=== PATIENT | female | born 1955 | race African-American/Black ===

== ENCOUNTER 2017-04-23 22:21 | Emergency (ER) | payer SELFPAY ==
--- NOTE | 2017-04-23 22:41 | EKG REPORT ---
SEVERITY:- OTHERWISE NORMAL ECG - SINUS RHYTHM BORDERLINE LEFT AXIS DEVIATION : Confirmed by: Junior Garibay 23-Apr-2017 22:40:53
[2017-04-24 00:10] LABS: ABSOLUTE EOSINOPHILS # (AUTO) 0.1 10^3/uL (0.0-0.6); ABSOLUTE LYMPHOCYTES (AUTO) 1.5 10^3/uL (0.5-4.7); ABSOLUTE MONOCYTES (AUTO) 1.1 10^3/uL (0.1-1.4); ABSOLUTE NEUT (AUTO) 3.1 10^3/uL (1.7-8.2); BASOPHILS % (AUTO) 0.5 % (0-2); EOSINOPHILS % (AUTO) 1.9 % (0-6); HEMATOCRIT 32.1 % (36.0-47.0); HEMOGLOBIN 10.4 g/dL (12.0-15.5); HGB HCT DIFFERENCE -0.9; LYMPHOCYTES % (AUTO) 25.8 % (13-45); MEAN CORPUSCULAR HEMOGLOBIN 29.3 pg (27.0-33.4); MEAN CORPUSCULAR HGB CONC 32.5 g/dL (32.0-36.0); MEAN CORPUSCULAR VOLUME 90 fl (80-97); MONOCYTES % (AUTO) 18.6 % (3-13); RED BLOOD COUNT 3.56 10^6/uL (3.72-5.28); RED CELL DISTRIBUTION WIDTH 13.4 % (11.5-14.0); SEGMENTED NEUTROPHILS % (AUTO) 53.2 % (42-78); WHITE BLOOD COUNT 5.8 10^3/uL (4.0-10.5)
[2017-04-24 00:19] LABS: ALANINE AMINOTRANSFERASE 29 U/L (9-52); ALBUMIN 4.4 g/dL (3.5-5.0); ALKALINE PHOSPHATASE 75 U/L (38-126); ANION GAP 12 (5-19); ASPARTATE AMINO TRANSFERASE 25 U/L (14-36); BILIRUBIN,DIRECT 0.5 mg/dL (0.0-0.4); BILIRUBIN,TOTAL 0.8 mg/dL (0.2-1.3); BLOOD UREA NITROGEN 19 mg/dL (7-20); CALCIUM 9.7 mg/dL (8.4-10.2); CARBON DIOXIDE 31 mmol/L (22-30); CHLORIDE 99 mmol/L (98-107); CREATINE KINASE 142 U/L (30-135); CREATININE RESULT 0.79 mg/dL (0.52-1.25); GLUCOSE 131 mg/dL (75-110); LIPASE 45.7 U/L (23-300); POTASSIUM 4.2 mmol/L (3.6-5.0); SODIUM 141.5 mmol/L (137-145); TOTAL PROTEIN 8.2 g/dL (6.3-8.2)
[2017-04-24 00:26] LABS: APPEARANCE,URINE CLEAR; BILIRUBIN,URINE NEGATIVE (NEGATIVE); GLUCOSE, URINE NEGATIVE (NEGATIVE); KETONES,URINE NEGATIVE (NEGATIVE); LEUKOCYTE ESTERASE,URINE TRACE (NEGATIVE); NITRITE,URINE NEGATIVE (NEGATIVE); PROTEIN,URINE NEGATIVE (NEGATIVE); URINE SPECIFIC GRAVITY 1.021; UROBILINOGEN,URINE NEGATIVE mg/dL (<2.0)
[2017-04-24 00:30] LABS: CREATINE KINASE MB 0.87 ng/mL (<4.55); TROPONIN I < 0.012 ng/mL
--- NOTE | 2017-04-24 00:51 | RADIOLOGY REPORT (SQ) ---
EXAM DESCRIPTION: CHEST SINGLE VIEW COMPLETED DATE/TIME: 04/24/2017 12:30 am REASON FOR STUDY: chest pain COMPARISON: 09/28/2013. EXAM PARAMETERS: NUMBER OF VIEWS: One view. TECHNIQUE: Single frontal radiographic view of the chest acquired. RADIATION DOSE: NA LIMITATIONS: None. FINDINGS: LUNGS AND PLEURA: No opacities, masses or pneumothorax. No pleural effusion. MEDIASTINUM AND HILAR STRUCTURES: No masses. Contour normal. HEART AND VASCULAR STRUCTURES: Heart normal in size. Normal vasculature. BONES: Mild disc desiccation. HARDWARE: None in the chest. OTHER: No other significant finding. IMPRESSION: NO ACUTE RADIOGRAPHIC FINDING IN THE CHEST. TECHNICAL DOCUMENTATION: JOB ID: [id number]
--- NOTE | 2017-04-24 01:03 | ER Document Report ---
HPI - HPI Pain Level: 5 Notes: Patient is a 61-year-old female with a history of hypertension who presents the ED complaining of left flank pain that radiates into her groin 4 days. Patient states that the pain has been intermittent and is described as sharp. Patient states that she did have a pain like this last year, but never found out what was or what caused it. Patient states that she is still eating and drinking without any difficulties or changes in her symptoms. She still urinating normally without any burning, urgency, frequency, hematuria. Patient reports normal bowel movements as well without any melena or hematochezia. She denies any numbness/tingling, saddle anesthesia, urinary retention, muscle paralysis/weakness of her lower extremities. She has not had any over-the- counter meds for her symptoms. Her PCM is Dr. Hirsch. She denies any smoking or illicit drug use. Denies any surgeries to her abdomen/pelvis. Denies any headache, fever, neck pain/stiffness, URI, sore throat, chest pain, palpitations , syncope, cough, shortness of breath, wheeze, dyspnea, nausea/vomiting/diarrhea , dysuria, loss of control of bowel or bladder, or rash. - ROS Notes: REVIEW OF SYSTEMS: CONSTITUTIONAL : Denies fever, chills, or sweats. Denies recent illness. EENT: Denies eye, ear, throat, or mouth pain or symptoms. Denies nasal or sinus congestion or discharge. Denies throat, tongue, or mouth swelling or difficulty swallowing. CARDIOVASCULAR: Denies chest pain. Denies palpitations or racing or irregular heart beat. Denies ankle edema. RESPIRATORY: Denies cough, cold, or chest congestion. Denies shortness of breath, difficulty breathing, or wheezing. GASTROINTESTINAL: see hpi GENITOURINARY: Denies difficulty urinating, painful urination, burning, frequency, blood in urine, or discharge. FEMALE GENITOURINARY: Denies vaginal bleeding, heavy or abnormal periods, irregular periods. Denies vaginal discharge or odor. MUSCULOSKELETAL: see hpi SKIN: Denies rash, lesions or sores. NEUROLOGICAL: Denies confusion or altered mental status. Denies passing out or loss of consciousness. Denies dizziness or lightheadedness. Denies headache. Denies weakness or paralysis or loss of use of either side. Denies problems with gait or speech. Denies sensory loss, numbness, or tingling. ALL OTHER SYSTEMS REVIEWED AND NEGATIVE. Dictation was performed using 24h00 voice recognition software - REPRODUCTIVE LMP: na - DERM Skin Color: Normal Past Medical History - Social History Smoking Status: Never Smoker Frequency of alcohol use: None Family History: None, Reviewed & Not Pertinent Patient has suicidal ideation: No Patient has homicidal ideation: No - Past Medical History Cardiac Medical History: Reports: Hx Heart Attack, Hx Hypertension Pulmonary Medical History: Reports: Hx Pneumonia Renal/ Medical History: Denies: Hx Kidney Stones, Hx Peritoneal Dialysis Surgical Hx: Negative - Immunizations Hx Diphtheria, Pertussis, Tetanus Vaccination: Yes Hx Pneumococcal Vaccination: 09/28/13 Vertical Provider Document - CONSTITUTIONAL Agree With Documented VS: Yes Notes: PHYSICAL EXAMINATION: GENERAL: Well-appearing, well-nourished and in no acute distress. HEAD: Atraumatic, normocephalic. EYES: Pupils equal round and reactive to light, extraocular movements intact, sclera anicteric, conjunctiva are normal. ENT: EAC clear b/l. TM's intact b/l without erythema, fluid, or perforation. Nares patent and without discharge. oropharynx clear without exudates. No tonsilar hypertrophy or erythema. Moist mucous membranes. No sinus tenderness. NECK: Normal range of motion, supple without lymphadenopathy. No rigidity. LUNGS: Breath sounds clear to auscultation bilaterally and equal. No wheezes rales or rhonchi. HEART: Regular rate and rhythm without murmurs, rubs, gallops. ABDOMEN: Soft, nondistended abdomen. No guarding, no rebound. No masses appreciated. Normal bowel sounds present. + left CVA tenderness. + mild tenderness to the left flank only in the abd/pelvis. No inguinal adenopathy or obvious hernias noted. Musculoskeletal: LE's b/l: FROM to passive/active. Strength 5+/5. No focal deficits. Extremities: No cyanosis, clubbing, or edema b/l. Peripheral pulses 2+. Capillary refill less than 3 seconds. Sylvia neg b/l. SLR neg b/l. NEUROLOGICAL: Normal speech, normal gait. Normal sensory, motor exams PSYCH: Normal mood, normal affect. SKIN: Warm, Dry, normal turgor, no rashes or lesions noted. - INFECTION CONTROL TRAVEL OUTSIDE OF THE [place] IN LAST 30 DAYS: No - RESPIRATORY O2 Sat by Pulse Oximetry: 99 Course - Re-evaluation Re-evalutation: 04/24/17 03:45 Patient is an afebrile, well-hydrated, 61-year-old female who presents the ED with left flank pain not otherwise specified, but may have a correlation to the inferior left pulmonary nodule was found on CT and confirmed with chest CT. Vitals are otherwise stable. CBC, CMP, urine, lipase, abdominal CT, EKG, and cardiac enzymes were unremarkable at this time. Patient has a heart score of 2. Patient is able to tolerate p.o. intake without any difficulties. Low suspicion for any acute appendicitis, bowel obstruction, acute cholecystitis, perforated diverticulitis, incarcerated hernia, pancreatitis, perforated ulcer, tubo-ovarian abscess, peritonitis, sepsis at this time. Patient is aware that condition can change from initial presentation and she needs to monitor symptoms closely and seek medical attention if any acute changes. Toradol 15mg given IM today. Recommend conservative measures otherwise for symptoms at this time. Recheck with your PCM for further evaluation of the lung nodule and symptoms. Consider consult with a manager lab/oncologist. Return to the ED with any worsening/concerning symptoms otherwise as reviewed discharge. Patient is in agreement. - Vital Signs Vital signs: Temp Pulse Resp BP Pulse Ox 98.4 F 77 24 H 143/78 H 99 04/23/17 22:26 04/23/17 22:26 04/24/17 00:00 04/23/17 23:05 04/24/17 00:00 - Laboratory Result Diagrams: 04/23/17 23:23 04/23/17 23:23 Laboratory results interpreted by me: 04/23/17 04/23/17 04/24/17 23:23 23:23 00:10 RBC 3.56 L Hgb 10.4 L Hct 32.1 L Monocytes % 18.6 H Carbon Dioxide 31 H Glucose 131 H Direct Bilirubin 0.5 H Creatine Kinase 142 H Ur Leukocyte Esterase TRACE H Discharge - Discharge Clinical Impression: Left flank pain, Pulmonary nodule Condition: Stable Disposition: HOME, SELF-CARE Instructions: Abdominal Pain ([facility]), Toradol Injection ([facility]) Additional Instructions: Maintain adequate fluid and food intake Tylenol/ibuprofen as needed Warm/cool compresses may help Right stretches and exercises as able Monitor symptoms closely Recheck with your PCM in 2-3 days Consider consult with the manager lab/oncologist Return to the ED with any worsening symptoms and/or development of fever, headache, chest pain, palpitations, syncope, shortness of breath, trouble breathing, abdominal pain, n/v/d, blood in stool/urine, loss of control of bowel /bladder, urinary retention, muscle weakness/paralysis, saddle anesthesia, numbness/tingling, or other worsening symptoms that are concerning to you. Forms: Elevated Blood Pressure Referrals: DAVID HIRSCH MD [Primary Care Provider] - Follow up in 3-5 days PULMONOLOGY [Provider Group] - Follow up as needed
--- NOTE | 2017-04-24 01:38 | RADIOLOGY REPORT (SQ) ---
EXAM DESCRIPTION: CT LTD RENAL STONE PROTOCOL ON COMPLETED DATE/TIME: 04/24/2017 1:01 am REASON FOR STUDY: left flank pain COMPARISON: 06/14/2015. TECHNIQUE: CT scan of the abdomen and pelvis performed without intravenous or oral contrast. Images reviewed with lung, soft tissue, and bone windows. Reconstructed coronal and sagittal MPR images revi ewed. All images stored on PACS. All CT scanners at this facility use dose modulation, iterative reconstruction, and/or weight based d osing when appropriate to reduce radiation dose to as low as reasonably achievable (ALARA). [facility]: Dose Right [facility]: CareDose [facility]: Dose Right [facility]: Teradose 4D [facility]: [employer] RADIATION DOSE: Up-to-date CT equipment and radiation dose reduction techniques were employed. CTDIv ol: 15.6 mGy. DLP: 779 mGy-cm.mGy. LIMITATIONS: None. FINDINGS: LOWER CHEST: Minimal atelectasis or scar of the lingula. 1.1 x 0.6 cm pleural-based nodul e of the left lower lobe posteriorly. NON-CONTRASTED LIVER, SPLEEN, ADRENALS: Evaluation limited by lack of IV contrast. No identified sign ificant masses. PANCREAS: No masses. No peripancreatic inflammatory changes. GALLBLADDER: No identified stones by CT criteria. No inflammatory changes to suggest cholecystitis. RIGHT KIDNEY AND URETER: No suspicious masses. Assessment limited by lack of IV contrast. No signif icant calcifications. No hydronephrosis or hydroureter. LEFT KIDNEY AND URETER: No suspicious masses. Assessment limited by lack of IV contrast. No signifi cant calcifications. No hydronephrosis or hydroureter. AORTA AND RETROPERITONEUM: No aneurysm. No retroperitoneal masses or adenopathy. BOWEL AND PERITONEAL CAVITY: No obvious masses or inflammatory changes. No free fluid. APPENDIX: Normal. PELVIS, BLADDER, AND ABDOMINAL WALL:No abnormal masses. No free fluid. Bladder normal. BONES: 0.3 cm grade 1 degenerative anterolisthesis at the L5 level with mild lumbosacral spondylosis. Mild lower thoracic disc desiccation. Moderate bony demineralization. 0.6 cm ossicular fragment a nterior to the left hip joint. Mild bilateral femoroacetabular osteoarthritis. OTHER: No other significant finding. IMPRESSION: 1. No acute findings. 2. New 1.1 cm left lower lobar pulmonary nodule; correlation wit h routine contrast CT of the enitire chest recommended. TECHNICAL DOCUMENTATION: JOB ID: [id number] Quality ID # [id number]: Final reports with documentation of one or more dose reduction techniques (e.g., Au tomated exposure control, adjustment of the mA and/or kV according to patient size, use of iterative reconstruction technique) 2010 [employer]- All Rights Reserved
--- NOTE | 2017-04-24 03:35 | RADIOLOGY REPORT (SQ) ---
EXAM DESCRIPTION: CT CHEST WITH COMPLETED DATE/TIME: 04/24/2017 2:42 am REASON FOR STUDY: Pulmonary nodule on CT abd COMPARISON: None. TECHNIQUE: CT scan of the chest performed using helical scanning technique with dynamic intravenous contrast injection. Images reviewed with lung, soft tissue and bone windows. Reconstructed coronal and sagittal MPR images reviewed. All images stored on PACS. All CT scanners at this facility use dose modulation, iterative reconstruction, and/or weight based d osing when appropriate to reduce radiation dose to as low as reasonably achievable (ALARA). [facility]: Dose Right [facility]: CareDose [facility]: Dose Right [facility]: Teradose 4D [facility]: [employer] CONTRAST TYPE AND DOSE: contrast/concentration: Isovue 370.00 mg/ml; Total Contrast Delivered: 80.0 ml; Total Saline Delivered: 55.0 ml RENAL FUNCTION: Creatinine 0.8 RADIATION DOSE: Up-to-date CT equipment and radiation dose reduction techniques were employed. CTDIv ol: 16.7 mGy. DLP: 618 mGy-cm. . LIMITATIONS: None. FINDINGS: LUNGS AND PLEURA: 0.83-cm (0.9 x 0.5 x 1.1 cm), image 43, series 4, pleural-based nodule with minimal spiculation of the left lower lobe new compared with prior CT from 06/14/2015. Additiona l smaller scant pleural-based nodularity of bilateral lower lobes. 0.3 cm calcified granuloma of the left upper lobe. No suspicious pulmonary nodularity HILAR AND MEDIASTINAL STRUCTURES: No identified masses or abnormal nodes. HEART AND VASCULAR STRUCTURES: No aneurysm or dissection. No central pulmonary emboli. No pericardi al effusion. HARDWARE: None in the chest. UPPER ABDOMEN: No significant findings. Limited exam. THYROID AND OTHER SOFT TISSUES: No masses. No adenopathy. BONES: Mild disc desiccation. OTHER: No other significant finding. IMPRESSION: New, small pleural-based nodularity of bilateral lower lobes includes a 0.83 cm left low er lobar nodule. Differential diagnosis includes pleural-based atelectasis/scar; cannot exclude neop lasm. Recommend CT surveillance in 7-12 week, or as clinically warranted. COMMENT: FLEISCHNER CRITERIA FOR FOLLOW-UP OF PULMONARY NODULES Incidentally detected new nodules in persons 35 or older. HIGH RISK: History of smoking or other known risk factors. >8mm multiple solid nodules: LOW RISK: CT 3-6 mo; then consider CT 18-24 mo. HIGH RISK: CT 3-6 mo; th en CT 18-24 mo. TECHNICAL DOCUMENTATION: JOB ID: [id number] Quality ID # [id number]: Final reports with documentation of one or more dose reduction techniques (e.g., Au tomated exposure control, adjustment of the mA and/or kV according to patient size, use of iterative reconstruction technique) 2010 [employer]- All Rights Reserved
[2017-04-24] MEDS ORDERED: KETOROLAC TROMETHAMINE INJ/PF 30 MG/1 ML SDV IV ONE (03:44)
[2017-04-24 04:51] VITALS: BP 150/73
== END 2017-04-24 04:57 | disposition home or self-care (01) ==
LOC: ER 22:21
DX: R91.1 Solitary pulmonary nodule (principal); I10 Essential (primary) hypertension; R10.9 Unspecified abdominal pain
CPT/HCPCS: 93005; 99285; 96374; 36415; 82553; 82550; 83690; 85025; 80053; 81001; 84484; 71010; 71260; 76380; 93010; J1885

== ENCOUNTER 2018-04-17 15:43 | Observation (INO) | payer BC ==
[2018-04-17] MEDS ORDERED: ASPIRIN 81 MG TABLET, CHEWABLE PO ONE (16:02)
--- NOTE | 2018-04-17 16:03 | ER Document Report ---
ED Medical Screen (RME) - General Chief Complaint: Palpitations Stated Complaint: CHEST PAIN Time Seen by Provider: 04/17/18 15:55 Notes: 62-year-old female presents emergency department complaining of palpitations intermittently for the past 2 nights that wake her up from sleep and give her a tightness in the right side of her chest. States that they tend to improve during the day and they are gone now. Patient initially went to urgent care and urgent care center to the emergency department today. Denies any history of prior heart attack. TRAVEL OUTSIDE OF THE [place] IN LAST 30 DAYS: No - Related Data Allergies/Adverse Reactions: iodine [Iodine] Allergy (Verified 06/14/15 16:53) Past Medical History - General Information source: Patient - Social History Cigarette use (# per day): No Chew tobacco use (# tins/day): No Frequency of alcohol use: None Drug Abuse: None - Past Medical History Cardiac Medical History: Reports: Hx Heart Attack, Hx Hypertension Pulmonary Medical History: Reports: Hx Pneumonia Renal/ Medical History: Denies: Hx Kidney Stones, Hx Peritoneal Dialysis - Immunizations Hx Diphtheria, Pertussis, Tetanus Vaccination: Yes Review of Systems - Review of Systems Cardiovascular: See HPI, Chest pain, Palpitations Physical Exam - Vital signs Vitals: Temp Pulse Resp BP Pulse Ox 99.2 F 74 20 178/76 H 100 04/17/18 15:53 04/17/18 15:53 04/17/18 15:53 04/17/18 15:53 04/17/18 15:53 Interpretation: Hypertensive - Notes Notes: Alert, no acute distress, heart is regular rate and rhythm with no murmurs gallops or rubs, lungs are clear to auscultation bilaterally. Course - Vital Signs Vital signs: Temp Pulse Resp BP Pulse Ox 99.2 F 74 20 178/76 H 100 04/17/18 15:53 04/17/18 15:53 04/17/18 15:53 04/17/18 15:53 04/17/18 15:53 Doctor's Discharge - Discharge Referrals: DAVID HUNTLEY MD [Primary Care Provider] - Follow up as needed
[2018-04-17 16:44] LABS: HEMATOCRIT 34.3 % (36.0-47.0); HEMOGLOBIN 11.1 g/dL (12.0-15.5); MEAN CORPUSCULAR HEMOGLOBIN 28.9 pg (27.0-33.4); MEAN CORPUSCULAR HGB CONC 32.5 g/dL (32.0-36.0); MEAN CORPUSCULAR VOLUME 89 fl (80-97); PLATELET COUNT 252 10^3/uL (150-450); RED BLOOD COUNT 3.85 10^6/uL (3.72-5.28); RED CELL DISTRIBUTION WIDTH 13.3 % (11.5-14.0)
[2018-04-17 16:52] LABS: CREATINE KINASE MB 0.41 ng/mL (<4.55)
[2018-04-17 16:54] LABS: TROPONIN I < 0.012 ng/mL
--- NOTE | 2018-04-17 17:17 | RADIOLOGY REPORT (SQ) ---
EXAM DESCRIPTION: CHEST SINGLE VIEW COMPLETED DATE/TIME: 04/17/2018 4:43 pm REASON FOR STUDY: palpitations, chest pain COMPARISON: 04/24/2017 EXAM PARAMETERS: NUMBER OF VIEWS: One view. TECHNIQUE: Single frontal radiographic view of the chest acquired. RADIATION DOSE: NA LIMITATIONS: None. FINDINGS: LUNGS AND PLEURA: No acute opacities, masses or pneumothorax. No pleural effusion. MEDIASTINUM AND HILAR STRUCTURES: Stable. HEART AND VASCULAR STRUCTURES: Heart normal in size. Normal vasculature. BONES: No acute findings. HARDWARE: None in the chest. OTHER: No other significant finding. IMPRESSION: NO ACUTE RADIOGRAPHIC FINDING IN THE CHEST. TECHNICAL DOCUMENTATION: JOB ID: [id number] [place]-72 2010 [employer]- All Rights Reserved Reading location - IP/workstation name: [email or web address]
[2018-04-17 17:22] LABS: ABSOLUTE MONOCYTES # (MANUAL) 0.5 10^3/uL (0.1-1.4); ABSOLUTE NEUTROPHILS# (MANUAL) 3.5 10^3/uL (1.7-8.2); BAND NEUTROPHILS % (MANUAL) 2 % (3-5); BASOPHILS % (MANUAL) 0 % (0-2); EOSINOPHILS % (MANUAL) 0 % (0-6); LYMPHOCYTES % (MANUAL) 33 % (13-45); MONOCYTES % (MANUAL) 9 % (3-13); SEGMENTED NEUTROPHILS % (MAN) 56 % (42-78); TOTAL CELLS COUNTED 100
[2018-04-17 17:23] LABS: RBC MORPHOLOGY COMMENT NORMO-CYTIC/CHROMIC; TOXIC VACUOLATION PRESENT
[2018-04-17 17:37] LABS: ALANINE AMINOTRANSFERASE 20 U/L (9-52); ALKALINE PHOSPHATASE 60 U/L (38-126); ANION GAP 13 (5-19); ASPARTATE AMINO TRANSFERASE 25 U/L (14-36); BILIRUBIN,DIRECT 0.3 mg/dL (0.0-0.4); BILIRUBIN,TOTAL 0.7 mg/dL (0.2-1.3); BLOOD UREA NITROGEN 11 mg/dL (7-20); CALCIUM 9.1 mg/dL (8.4-10.2); CARBON DIOXIDE 30 mmol/L (22-30); CHLORIDE 102 mmol/L (98-107); CREATINE KINASE 83 U/L (30-135); GLUCOSE 154 mg/dL (75-110); POTASSIUM 3.7 mmol/L (3.6-5.0); SODIUM 144.7 mmol/L (137-145); TOTAL PROTEIN 7.7 g/dL (6.3-8.2)
--- NOTE | 2018-04-17 17:48 | ER Document Report ---
ED General - General Chief Complaint: Palpitations Stated Complaint: CHEST PAIN Time Seen by Provider: 04/17/18 15:55 Mode of Arrival: Ambulatory Information source: Patient Notes: This is a 62-year-old female with a history of hypertension, borderline diabetes who presents to the emergency room with retrosternal chest pain associated with palpitations on and off for the past 2 days. TRAVEL OUTSIDE OF THE [place] IN LAST 30 DAYS: No - HPI Onset: Yesterday Onset/Duration: Gradual Quality of pain: No pain, Dull Severity: None Pain Level: Denies Associated symptoms: Chest pain. denies: Fever, Shortness of breath Exacerbated by: Denies Relieved by: Denies Similar symptoms previously: No Recently seen / treated by doctor: No - Related Data Allergies/Adverse Reactions: iodine [Iodine] Allergy (Verified 06/14/15 16:53) Past Medical History - General Information source: Patient - Social History Smoking Status: Never Smoker Cigarette use (# per day): No Chew tobacco use (# tins/day): No Frequency of alcohol use: None Drug Abuse: None Lives with: Family Family History: None, Reviewed & Not Pertinent Patient has suicidal ideation: No Patient has homicidal ideation: No - Past Medical History Cardiac Medical History: Reports: Hx Heart Attack, Hx Hypertension Pulmonary Medical History: Reports: Hx Pneumonia Renal/ Medical History: Denies: Hx Kidney Stones, Hx Peritoneal Dialysis Surgical Hx: Negative - Immunizations Hx Diphtheria, Pertussis, Tetanus Vaccination: Yes Hx Pneumococcal Vaccination: 09/28/13 Review of Systems - Review of Systems Constitutional: denies: Chills, Fever EENT: No symptoms reported Cardiovascular: See HPI Respiratory: No symptoms reported Gastrointestinal: No symptoms reported Genitourinary: No symptoms reported Female Genitourinary: No symptoms reported Musculoskeletal: No symptoms reported Skin: No symptoms reported Hematologic/Lymphatic: No symptoms reported Neurological/Psychological: No symptoms reported Physical Exam - Vital signs Vitals: Temp Pulse Resp BP Pulse Ox 99.2 F 74 20 178/76 H 100 04/17/18 15:53 04/17/18 15:53 04/17/18 15:53 04/17/18 15:53 04/17/18 15:53 Notes: Physical exam: GENERAL: A 62-year-old female, alert and oriented 3, no acute distress HEAD: Atraumatic, normocephalic. EYES: Pupils equal round and reactive to light, extraocular movements intact, sclera anicteric, conjunctiva are normal. ENT: TMs normal, nares patent, oropharynx clear without exudates. Moist mucous membranes. NECK: Normal range of motion, supple without obvious mass or JVD. LUNGS: Breath sounds clear to auscultation bilaterally and equal. No wheezes rales or rhonchi. HEART: Regular rate and rhythm without murmurs, rubs or gallops. ABDOMEN: Soft, normoactive bowel sounds. No tenderness to palpation. No guarding, no rebound. No masses appreciated. EXTREMITIES: Normal range of motion, no pitting or edema. No clubbing or cyanosis. NEUROLOGICAL: Cranial nerves II through XII grossly intact. Normal speech, moving all extremities. PSYCH: Normal mood, normal affect. SKIN: Warm, Dry, normal turgor, no rashes or lesions noted. Course - Vital Signs Vital signs: Temp Pulse Resp BP Pulse Ox 98.2 F 62 17 153/80 H 96 04/17/18 23:03 04/17/18 23:03 04/17/18 23:03 04/17/18 23:03 04/17/18 23:03 - Laboratory Result Diagrams: 04/17/18 16:10 04/17/18 17:02 Laboratory results interpreted by me: 04/17/18 04/17/18 16:10 17:02 Hgb 11.1 L Hct 34.3 L Band Neutrophils % 2 L Glucose 154 H - Diagnostic Test Radiology reviewed: Image reviewed, Reports reviewed - X-ray shows no infiltrates - EKG Interpretation by Me Rate: Normal Rhythm: NSR - No acute ST-T wave changes Discharge - Discharge Clinical Impression: Chest pain Qualifiers: Chest pain type: precordial pain Qualified Code(s): R07.2 - Precordial pain Condition: Stable Disposition: ADMITTED OBSERVATION Admitting Provider: Hospitalist - Dr Peraza Unit Admitted: Telemetry
[2018-04-17 17:52] LABS: PLATELET COMMENT ADEQUATE
[2018-04-17 18:05] LABS: FREE T3 3.42 pg/mL (2.77-5.27); FREE T4 (FREE THYROXINE) 1.2 ng/dL (0.78-2.19)
[2018-04-17] MEDS ORDERED: ACETAMINOPHEN 325 MG TABLET PO PRN (18:05)
[2018-04-17 18:18] LABS: THYROID STIMULATING HORMONE 1.2 uIU/mL (0.47-4.68)
[2018-04-17] MEDS ORDERED: NITROGLYCERIN 0.4 MG/TAB 25 TAB/BOTTLE SL PRN (18:33)
[2018-04-17] MEDS ORDERED: MORPHINE SULFATE 10 MG/ML INJ IV PRN (18:33)
--- NOTE | 2018-04-17 18:34 | PDOC H&P ---
History of Present Illness Admission Date/PCP: 04/17/18 17:59 None Patient complains of: Chest pain and palpitation History of Present Illness: BABS REGAN is a 62 year old female with a past medical history of hypertension who presented to the ED complaining of palpitation and chest discomfort for 2 days. Patient states that her symptoms started on Wednesday night. Patient states that she was laying in bed when she felt her chest was beating fast associated with some discomfort and shortness of breath. She try to go back to sleep but woke her up again. States that each time it lasted a few minutes but it happened 3-4 times at night. The next day she was feeling fine but symptoms recurred again on last night. States that today she went to urgent care for evaluation and sent her to the ED for further evaluation. She denies any medications, lifestyle changes, changes in diet, or sick contacts in the last few weeks. Patient states she has never had this type of palpitation or discomfort in the past. She does not describe it as chest pain but discomfort when she has the moments of palpitations. She does associated with shortness of breath but no nausea/vomiting, diaphoresis or jaw/arm pain. Denies headaches, dizziness, abdominal pain, diarrhea, numbness/tingling, changes in vision. She does admit to family history of hypertension but denies history of smoking, alcohol or illicit drug use. Past Medical History Cardiac Medical History: Reports: Hypertension Pulmonary Medical History: Reports: Pneumonia Social History Smoking Status: Never Smoker Family History Family History: CVA - mother, Hypertension - mother. denies: COPD, Thyroid Disfunction Parental Family History Reviewed: Yes Children Family History Reviewed: Unknown Sibling(s) Family History Reviewed.: Unknown Medication/Allergy Home Medications: Amlodipine Besylate [Norvasc 10 mg Tablet] 10 mg PO DAILY #30 tablet 04/03/14 Lisinopril/Hydrochlorothiazide [Zestoretic 20-25 mg Tablet] 1 each PO DAILY #30 tablet 04/03/14 Oxycodone HCl/Acetaminophen [Percocet 5-325 mg Tablet] 1 - 2 tab PO Q4H PRN #20 tablet 06/14/15 Allergies/Adverse Reactions: iodine [Iodine] Allergy (Verified 06/14/15 16:53) Review of Systems All systems: reviewed and no additional remarkable complaints except as stated Constitutional: ABSENT: chills, fever(s) Eyes: ABSENT: visual disturbances Nose, Mouth, and Throat: PRESENT: headache(s). ABSENT: sore throat Cardiovascular: PRESENT: palpitations, other - chest discomfort during palpitations Respiratory: PRESENT: dyspnea - during episodes of palpitations. ABSENT: cough , sputum Gastrointestinal: ABSENT: abdominal pain, nausea, vomiting Genitourinary: ABSENT: dysuria Musculoskeletal: ABSENT: joint swelling, muscle weakness Integumentary: ABSENT: rash Neurological: ABSENT: confusion, numbness, syncope, tingling Endocrine: ABSENT: cold intolerance, heat intolerance Physical Exam Vital Signs: Temp Pulse Resp BP Pulse Ox 99.2 F 74 9 L 178/76 H 100 04/17/18 15:53 04/17/18 15:53 04/17/18 16:36 04/17/18 15:53 04/17/18 16:37 General appearance: PRESENT: no acute distress, obese Head exam: PRESENT: atraumatic, normocephalic Eye exam: PRESENT: EOMI, PERRLA. ABSENT: scleral icterus Ear exam: PRESENT: normal external ear exam Mouth exam: PRESENT: moist, neck supple, tongue midline Neck exam: ABSENT: lymphadenopathy, tenderness, thyromegaly, tracheal deviation Respiratory exam: PRESENT: clear to auscultation heidi, symmetrical Cardiovascular exam: PRESENT: RRR, +S1, +S2 Pulses: ABSENT: +2 pedal pulses bilateral GI/Abdominal exam: PRESENT: normal bowel sounds, soft. ABSENT: tenderness Extremities exam: ABSENT: joint swelling, pedal edema Musculoskeletal exam: PRESENT: full ROM Neurological exam: PRESENT: alert, awake, oriented to person, oriented to place , oriented to time, oriented to situation, CN II-XII grossly intact Psychiatric exam: ABSENT: anxious, homicidal ideation, suicidal ideation Skin exam: PRESENT: dry, warm Results Impressions: Chest X-Ray 04/17/18 16:02 IMPRESSION: NO ACUTE RADIOGRAPHIC FINDING IN THE CHEST. Assessment & Plan - Time Time Spent: 50 to 70 Minutes - Plan Summary Plan Summary: 62-year-old female with a past medical history of hypertension, obesity, family history of hypertension and stroke, who presented to the ER complaining of palpitations associated with chest discomfort and shortness of breath for the last 2 days. Palpitations-her initial blood work is within normal limits. TSH/T4 is pending. Unclear etiology of her palpitations but she does have cardiac risk factors of obesity, hypertension and family history of hypertension/CVA. We will check her lipid panel and A1c to risk stratify her. Will place her on telemetry and monitor her for any irregular arrhythmias. Palpitations can be due to thyroid dysfunction, arrhythmias, excessive caffeine intake, infection, substance abuse or psychological in nature. Will add Nitrostat and supplemental oxygen as needed. First troponin was negative-we will trend every 3 hours for 2 more. Hypertension-we will continue with her home medication. We will place her in observation and monitor overnight. Follow-up blood work comes back negative then we may consider stress testing her. If stress test is not an option and she remains asymptomatic then she will need follow-up with cardiology versus endocrine for further workup.
[2018-04-17] MEDS: FAMOTIDINE 20 MG TABLET PO SCH (21:55)
--- NOTE | 2018-04-17 23:40 | EKG REPORT ---
SEVERITY:- ABNORMAL ECG - SINUS RHYTHM PROBABLE LVH WITH SECONDARY REPOL ABNRM : Confirmed by: Junior Garibay 17-Apr-2018 23:39:39
[2018-04-18 05:19] LABS: HEMOGLOBIN 10.5 g/dL (12.0-15.5); MEAN CORPUSCULAR HEMOGLOBIN 29.2 pg (27.0-33.4); MEAN CORPUSCULAR HGB CONC 32.9 g/dL (32.0-36.0); MEAN CORPUSCULAR VOLUME 89 fl (80-97); PLATELET COUNT 202 10^3/uL (150-450); RED BLOOD COUNT 3.61 10^6/uL (3.72-5.28); RED CELL DISTRIBUTION WIDTH 13.4 % (11.5-14.0); WHITE BLOOD COUNT 5.2 10^3/uL (4.0-10.5)
[2018-04-18 06:23] LABS: ANION GAP 9 (5-19); BLOOD UREA NITROGEN 8 mg/dL (7-20); CALCIUM 9.1 mg/dL (8.4-10.2); CARBON DIOXIDE 32 mmol/L (22-30); CHLORIDE 104 mmol/L (98-107); CHOLESTEROL 203.99 mg/dL (0-200); GLUCOSE 107 mg/dL (75-110); POTASSIUM 3.9 mmol/L (3.6-5.0); SODIUM 144.7 mmol/L (137-145); TRIGLYCERIDES 101 mg/dL (<150)
[2018-04-18 06:29] LABS: APPEARANCE,URINE CLEAR; BILIRUBIN,URINE NEGATIVE (NEGATIVE); COLOR,URINE STRAW; GLUCOSE, URINE NEGATIVE (NEGATIVE); KETONES,URINE NEGATIVE (NEGATIVE); LEUKOCYTE ESTERASE,URINE TRACE (NEGATIVE); NITRITE,URINE NEGATIVE (NEGATIVE); PROTEIN,URINE NEGATIVE (NEGATIVE); URINE SPECIFIC GRAVITY 1.008; UROBILINOGEN,URINE NEGATIVE mg/dL (<2.0)
[2018-04-18 06:33] LABS: DIRECT LDL 114 mg/dL (<100)
--- NOTE | 2018-04-18 06:50 | EKG REPORT ---
SEVERITY:- OTHERWISE NORMAL ECG - SINUS RHYTHM BORDERLINE LEFT AXIS DEVIATION : Confirmed by: Junior Garibay 18-Apr-2018 06:50:08
[2018-04-18 08:15] VITALS: BP 150/78
[2018-04-18] MEDS: FAMOTIDINE 20 MG TABLET PO SCH (09:38)
[2018-04-18] MEDS ORDERED: HYDROCHLOROTHIAZIDE 25 MG TABLET PO SCH (10:00)
[2018-04-18] MEDS ORDERED: ENOXAPARIN SODIUM INJ 40 MG/0.4 ML DISP.SYRIN SUBCUT SCH (10:00)
[2018-04-18] MEDS ORDERED: AMLODIPINE BESYLATE 10 MG TABLET PO SCH (10:00)
[2018-04-18] MEDS ORDERED: LISINOPRIL 10 MG TABLET PO SCH (10:00)
--- NOTE | 2018-04-18 10:53 | PDOC DISCHARGE SUMMARY ---
General - Admit/Disc Date/PCP Admission Date/Primary Care Provider: 04/17/18 17:59 Primary MD: Dr Harley Hirsch Interlocker: Dr Garibay Discharge Date: 04/18/18 - Discharge Diagnosis (1) Heart palpitations Is this a current diagnosis for this admission?: Yes Summary: The patient has had no further palpitations since being admitted to the hospital. Serial troponins were negative. I have spoken to Dr. Garibay on the day of discharge. She will go over to his office this afternoon to have an event monitor placed. (2) Hypertensive urgency Is this a current diagnosis for this admission?: Yes Summary: Possibly the cause of her heart palpitations. I have increased her amlodipine and have written her a prescription for hydrochlorothiazide/lisinopril. Her blood pressure is much better controlled at this point. (3) Hyperlipidemia Is this a current diagnosis for this admission?: Yes Summary: She will be started on low-dose statin medication. (4) Opiate dependence Is this a current diagnosis for this admission?: Yes Summary: She has episodic opiate use. (5) Obesity (BMI 30-39.9) Is this a current diagnosis for this admission?: Yes Summary: Dietary discretion is advised - Additional Information Discharge Diet: Cardiac Discharge Activity: Activity As Tolerated, Balance Activity w/Rest, Slowly Increase Activity Prescriptions: Amlodipine Besylate [Norvasc 10 mg Tablet] 10 mg PO DAILY #30 tablet Lisinopril/Hydrochlorothiazide [Zestoretic 20-12.5 Mg Tablet] 1 each PO DAILY # 30 tablet Home Medications: Amlodipine Besylate [Norvasc 10 mg Tablet] 10 mg PO DAILY #30 tablet 04/18/18 Lisinopril/Hydrochlorothiazide [Zestoretic 20-12.5 Mg Tablet] 1 each PO DAILY # 30 tablet 04/18/18 History of Present Illness History of Present Illness: BABS REGAN is a 62 year old female who presented to the emergency room with heart palpitations. Hospital Course Hospital Course: The patient is a 62-year-old -[place] female with a past medical history significant for hypertension. She presented to the emergency department complaining of a 2 day history of heart palpitations and chest discomfort. She states that she noticed the heart palpitations while lying in the bed. She felt as if her heart was beating fast and she became somewhat short of breath. She states she finally fell asleep and her symptoms recurred. The next day she was feeling fine however she developed heart palpitations once again at night. Her symptoms were not associated with shortness of breath or nausea or vomiting. She did not describe it as chest pain but just a funny sensation in her chest when her heart was beating fast. She was placed in observation in the hospital overnight. She was placed on telemetry monitoring and her serial troponins were trended. Her troponins remained negative. She was found to have some mild hyperlipidemia and will be started on a statin medication. She did have markedly elevated blood pressure at the time of admission and her blood pressure medications have been titrated. The patient had no further episodes of heart palpitations overnight. She states she is feeling back to her baseline. I spoke to Dr. Garibay from the cardiology service. At this point I feel like the patient would benefit from a Pelliano monitor. She is going to go to his office this afternoon to have one placed in for further workup. She will be discharged home today in stable condition. Physical Exam Vital Signs: Temp Pulse Resp BP Pulse Ox 98.0 F 53 L 16 150/78 H 100 04/18/18 08:00 04/18/18 08:00 04/18/18 08:00 04/18/18 08:00 04/18/18 08:00 Intake & Output 04/17/18 04/18/18 04/19/18 06:59 06:59 06:59 Intake Total 118 Balance 118 Weight 90.7 kg General appearance: PRESENT: no acute distress, well-developed, well-nourished Head exam: PRESENT: atraumatic, normocephalic Eye exam: PRESENT: conjunctiva pink, EOMI, PERRLA. ABSENT: scleral icterus Mouth exam: PRESENT: moist, tongue midline Neck exam: ABSENT: carotid bruit, JVD, lymphadenopathy, thyromegaly Respiratory exam: PRESENT: clear to auscultation heidi. ABSENT: rales, rhonchi, wheezes Cardiovascular exam: PRESENT: RRR. ABSENT: diastolic murmur, rubs, systolic murmur Pulses: PRESENT: normal dorsalis pedis pul GI/Abdominal exam: PRESENT: normal bowel sounds, soft. ABSENT: distended, guarding, mass, organolmegaly, rebound, tenderness Rectal exam: PRESENT: deferred Extremities exam: PRESENT: full ROM. ABSENT: calf tenderness, clubbing, pedal edema Musculoskeletal exam: PRESENT: ambulatory Neurological exam: PRESENT: alert, awake, oriented to person, oriented to place , oriented to time, oriented to situation, CN II-XII grossly intact. ABSENT: motor sensory deficit Psychiatric exam: PRESENT: appropriate affect, normal mood. ABSENT: homicidal ideation, suicidal ideation Skin exam: PRESENT: dry, intact, warm. ABSENT: cyanosis, rash Results Laboratory Results: 04/18/18 04:48 04/18/18 04:48 04/18/18 04/18/18 04/18/18 04:48 04:48 06:14 WBC 5.2 RBC 3.61 L Hgb 10.5 L Hct 32.0 L MCV 89 MCH 29.2 MCHC 32.9 RDW 13.4 Plt Count 202 Sodium 144.7 Potassium 3.9 Chloride 104 Carbon Dioxide 32 H Anion Gap 9 BUN 8 Creatinine 0.50 L Est GFR ( Amer) > 60 Est GFR (Non-Af Amer) > 60 Glucose 107 Calcium 9.1 Magnesium 2.0 Triglycerides 101 Cholesterol 203.99 H LDL Cholesterol Direct 114 H VLDL Cholesterol 20.0 HDL Cholesterol 49 Urine Color STRAW Urine Appearance CLEAR Urine pH 7.0 Ur Specific [place] 1.008 Urine Protein NEGATIVE Urine Glucose (UA) NEGATIVE Urine Ketones NEGATIVE Urine Blood NEGATIVE Urine Nitrite NEGATIVE Ur Leukocyte Esterase TRACE H Urine WBC (Auto) 3 04/17/18 04/17/18 04/18/18 18:40 21:25 04:48 Troponin I < 0.012 < 0.012 NT-Pro-B Natriuret Pep 98 Impressions: Chest X-Ray 04/17/18 16:02 IMPRESSION: NO ACUTE RADIOGRAPHIC FINDING IN THE CHEST. Qualifiers - * PATIENT BEING DISCHARGED WITH ANY OF THE FOLLOWING DIAGNOSIS: No Plan Discharge Plan: She will be discharged and follow-up at Dr. Garibay's office this afternoon to have a heart monitor placed. Time Spent: Greater than 30 Minutes
== END 2018-04-18 12:38 | disposition home or self-care (01) ==
LOC: ER 15:43 → EH 17:59 → 5 20:02
PROVIDERS: ADMIT Family Medicine; ATTEND Family Medicine
DX: R00.2 Palpitations (principal); I16.0 Hypertensive urgency; E78.5 Hyperlipidemia, unspecified; F11.20 Opioid dependence, uncomplicated; E66.9 Obesity, unspecified; R06.02 Shortness of breath; R51 Headache; I25.2 Old myocardial infarction; Z68.34 Body mass index [BMI] 34.0-34.9, adult; Z82.49 Family history of ischemic heart disease and other diseases of the circulatory system; Z87.01 Personal history of pneumonia (recurrent); Z79.899 Other long term (current) drug therapy; Z82.3 Family history of stroke
CPT/HCPCS: 93005 ×2; 99285; 36415 ×2; 84439; 82553; 82550; 83735; 84443; 85025; 85027; 80048; 80053; 81001; 84484; 84481; 83036; 80061; 83880; 71045; 93010 ×2; G0378 ×3

== ENCOUNTER → 2018-12-09 | Outpatient (CLI) | payer BC ==
--- NOTE | 2018-12-13 08:31 | WOMENS IMAGING REPORT ---
EXAM DESCRIPTION: 3D SCREENING MAMMO BILAT COMPLETED DATE/TIME: 12/09/2018 9:49 am REASON FOR STUDY: Z12.31 ROUTINE 3D BILATERAL SCREENING Z12.31 ENCNTR SCREEN MAMMOGRAM FOR MALIGNAN T NEOPLASM OF JEFF COMPARISON: 06/28/2012. TECHNIQUE: Standard craniocaudal and mediolateral oblique views of each breast recorded using digita l acquisition and breast tomosynthesis. LIMITATIONS: None. FINDINGS: Findings present which are benign by mammographic criteria. No suspicious masses, calcific ations or architectural distortion. Pertinent benign findings: Stable calcifications. Read with the assistance of CAD. .[facility] - R2 Cenova Version 1.3 .[facility] Imaging - R2 Cenova Version 2.1 .[facility] - R2 Cenova Version 2.4 .[facility] - R2 Cenova Version 2.4 .[facility] - R2 Newspaper Stuffer Version 9.2 Benign mammographic findings may include one or more of the following: Smooth masses, popcorn/rim/coa rse calcifications, asymmetries, post-procedure changes, and lesions with long-standing stability. IMPRESSION: BENIGN MAMMOGRAPHIC FINDINGS. BIRADS 2 BREAST DENSITY: b. There are scattered areas of fibroglandular density. BIRAD: 2 BENIGN FINDING(S) RECOMMENDATION: ROUTINE SCREENING COMMENT: The patient has been notified of the results by letter per SA requirements. Additional no tification policies are in place for contacting patient with suspicious or incomplete findings. Quality ID #[id number]: The [employer] recommends an annual screening mammogram for women aged 40 years or over. This facility utilizes a reminder system to ensure that all patients receive reminder letters, and/or direct phone calls for appointments. This includes reminders for routine scr eening mammograms, diagnostic mammograms, or other Breast Imaging Interventions when appropriate. Th is patient will be placed in the appropriate reminder system. The [employer] (ACR) has developed recommendations for screening MRI of the breast s in certain patient populations, to be used in conjunction with mammography. Breast MRI surveillanc e may be appropriate for women with more than 20% lifetime risk of developing breast cancer as deter mined by genetic testing, significant family history of the disease, or history of mantle radiation f or Hodgkins Disease. ACR Practice Guidelines 2008. DBT Technology DBT is a type of tomographic mammography. With conventional mammography, overlapping breast tissue ma y make lesions difficult to detect, even with good compression. DBT uses an x-ray tube that rotates a round the breast, taking images at different angles. These images are then combined to create thin sl ices of the breast that the radiologist can view as a 3D reconstruction. The [employer] unit can perform full-field digital mammograms (2D imaging); or DBT (3D imaging); or both, in a combination mode that quickly performs both the mammogram and the tomosynthesis scan while the breast is still compressed. PQRS 6045F: Fluoroscopic imaging is not utilized for breast tomosynthesis. TECHNICAL DOCUMENTATION: FINDING NUMBER: (1) ASSESSMENT: (1) JOB ID: [id number] [employer]- All Rights Reserved Reading location - IP/workstation name: [email or web address]
== END ==
LOC: WI 09:32
PROVIDERS: ATTEND Nurse Practitioner Family
DX: Z12.31 Encounter for screening mammogram for malignant neoplasm of breast (principal)
CPT/HCPCS: 77063; 77067

== ENCOUNTER 2020-05-15 08:27 | Inpatient (IN) | payer SELFPAY ==
--- NOTE | 2020-05-15 09:22 | ER Document Report ---
ED General - General Stated Complaint: VOMITING Time Seen by Provider: 05/15/20 09:08 Primary Care Provider: EDITH PEÑA FNP-C [Primary Care Provider] - Follow up as needed Notes: HPI: 64-year-old female that presents today with nausea and vomiting for around 2 days. She states nonbilious nonbloody. She states some epigastric abdominal discomfort worse with eating. She denies any fevers, cough, chest pain, shortness of breath, radiation to her back or lower abdomen, dysuria, or diarrhea. No similar symptoms in family members. Patient has never had previous symptoms like this before. No abdominal surgery or abdominal surgical history. ROS: See HPI All other review of systems reviewed and otherwise negative Reviewed vital signs and nursing note as charted by RN. PHYSICAL EXAM: CONSTITUTIONAL: Alert and oriented and responds appropriately to questions. Well-appearing; well-nourished HEAD: Normocephalic; atraumatic EYES: Sclerae non-icteric ENT: Normal nose; no rhinorrhea; moist mucous membranes; pharynx without lesions noted NECK: Supple without meningismus; non-tender; no cervical lymphadenopathy, no masses CARD: Regular rate and rhythm; no murmurs; symmetric distal pulses RESP: Normal chest excursion without splinting or tachypnea; breath sounds clear and equal bilaterally ABD/GI: Normal bowel sounds; non-distended; soft, very minimally tender to the epigastric and midabdominal region without rebound or guarding. No palpable masses or abdominal bruits BACK: The back appears normal and is non-tender to palpation EXT: Normal ROM in all joints; non-tender to palpation; no edema SKIN: No acute lesions noted NEURO: CN 2-12 intact; 5/5 bilateral upper and lower extremity strength with sensation intact to light touch PSYCH: The patient's mood and manner are appropriate. Grooming and personal hygiene are appropriate. TRAVEL OUTSIDE OF THE [place] IN LAST 30 DAYS: No - Related Data Allergies/Adverse Reactions: iodine [Iodine] Allergy (Verified 05/15/20 09:45) pear Allergy (Verified 05/15/20 09:45) shellfish derived Allergy (Verified 05/15/20 09:45) Past Medical History - Social History Smoking Status: Unknown if Ever Smoked Family History: None, Reviewed & Not Pertinent - Past Medical History Cardiac Medical History: Reports: Hx Heart Attack, Hx Hypertension Pulmonary Medical History: Reports: Hx Pneumonia Renal/ Medical History: Denies: Hx Kidney Stones, Hx Peritoneal Dialysis - Immunizations Hx Diphtheria, Pertussis, Tetanus Vaccination: Yes Hx Pneumococcal Vaccination: 09/28/13 Physical Exam - Vital signs Vitals: Temp Pulse Resp BP Pulse Ox 99.3 F 73 16 148/80 H 96 05/15/20 09:15 05/15/20 09:15 05/15/20 09:15 05/15/20 09:15 05/15/20 09:15 Course - Re-evaluation Re-evalutation: 05/15/20 09:22 Given the above history and physical in this well-appearing female with multiple bouts of vomiting with some epigastric discomfort worse with food, I will obtain basic labs, liver panel and lipase, CT scan of the abdomen and pelvis given the patient's age, and reassess. I would like to evaluate for the possibility of pancreatitis, transaminitis, or other acute intra-abdominal pathology including obstruction. 05/15/20 10:31 Labs as recorded. Patient's pain is improved. No nausea vomiting here currently. EKG shows heart of 71, normal sinus rhythm, normal axis, no ST elevation or depression. 05/15/20 11:14 CT scan as recorded. Patient's pain has improved. We have provided fluids. I will start the patient on maintenance fluid. I have called and spoken to the surgical staff will be down to see the patient. I do believe the patient requires admission. - Vital Signs Vital signs: Temp Pulse Resp BP Pulse Ox 99.3 F 73 16 148/80 H 96 05/15/20 09:15 05/15/20 09:15 05/15/20 09:15 05/15/20 09:15 05/15/20 09:15 - Laboratory Result Diagrams: 05/15/20 08:51 05/15/20 08:51 Laboratory results interpreted by me: 05/15/20 05/15/20 05/15/20 08:51 08:51 09:53 Lymph % (Auto) 5.4 L [place] % (Auto) 13.8 H Seg Neutrophils % 80.6 H Chloride 97 L Carbon Dioxide 32 H BUN 28 H Glucose 196 H Total Bilirubin 1.6 H Total Protein 8.5 H Lipase 20.5 L Urine Protein 100 H Urine Ketones TRACE H Discharge - Discharge Clinical Impression: Small intestine obstruction Vomiting Qualifiers: Vomiting type: unspecified Vomiting Intractability: non-intractable Nausea presence: with nausea Qualified Code(s): R11.2 - Nausea with vomiting, unspecified Condition: Fair Disposition: ADMITTED OBSERVATION Admitting Provider: Surgicalist Referrals: EDITH PEÑA, SCROLL SHEAR OPERATOR-C [Primary Care Provider] - Follow up as needed
[2020-05-15] MEDS ORDERED: NORMAL SALINE 1000 ML 1,000 ML IV ONE ×2 (09:27→11:15)
[2020-05-15] MEDS ORDERED: ONDANSETRON HCL INJ/PF 4 MG/2 ML SDV IV ONE (09:27)
[2020-05-15 09:34] LABS: ABSOLUTE LYMPHOCYTES (AUTO) 0.5 10^3/uL (0.5-4.7); ABSOLUTE MONOCYTES (AUTO) 1.4 10^3/uL (0.1-1.4); ABSOLUTE NEUT (AUTO) 8.1 10^3/uL (1.7-8.2); BASOPHILS % (AUTO) 0.2 % (0-2); HEMATOCRIT 36.9 % (36.0-47.0); HEMOGLOBIN 12.3 g/dL (12.0-15.5); LYMPHOCYTES % (AUTO) 5.4 % (13-45); MEAN CORPUSCULAR HEMOGLOBIN 29.9 pg (27.0-33.4); MEAN CORPUSCULAR HGB CONC 33.4 g/dL (32.0-36.0); MEAN CORPUSCULAR VOLUME 90 fl (80-97); MONOCYTES % (AUTO) 13.8 % (3-13); PLATELET COUNT 263 10^3/uL (150-450); RED BLOOD COUNT 4.13 10^6/uL (3.72-5.28); RED CELL DISTRIBUTION WIDTH 13.4 % (11.5-14.0); SEGMENTED NEUTROPHILS % (AUTO) 80.6 % (42-78); TOTAL CELLS COUNTED % (AUTO) 100 %
[2020-05-15 09:38] LABS: ALBUMIN 4.8 g/dL (3.5-5.0); ALKALINE PHOSPHATASE 93 U/L (38-126); ANION GAP 12 (5-19); ASPARTATE AMINO TRANSFERASE 23 U/L (14-36); BILIRUBIN,DIRECT 0.4 mg/dL (0.0-0.4); BILIRUBIN,TOTAL 1.6 mg/dL (0.2-1.3); BLOOD UREA NITROGEN 28 mg/dL (7-20); CALCIUM 10.1 mg/dL (8.4-10.2); CARBON DIOXIDE 32 mmol/L (22-30); CHLORIDE 97 mmol/L (98-107); GLUCOSE 196 mg/dL (75-110); POTASSIUM 3.7 mmol/L (3.6-5.0); TOTAL PROTEIN 8.5 g/dL (6.3-8.2)
[2020-05-15 10:18] LABS: APPEARANCE,URINE SLIGHTLY-CLOUDY; BILIRUBIN,URINE NEGATIVE (NEGATIVE); COLOR,URINE AMBER; GLUCOSE, URINE NEGATIVE (NEGATIVE); KETONES,URINE TRACE mg/dL (NEGATIVE); LEUKOCYTE ESTERASE,URINE NEGATIVE (NEGATIVE); NITRITE,URINE NEGATIVE (NEGATIVE); PROTEIN,URINE 100 mg/dL (NEGATIVE); URINE SPECIFIC GRAVITY 1.029; UROBILINOGEN,URINE NEGATIVE mg/dL (<2.0)
[2020-05-15] MEDS ORDERED: GLYCOPYRROLATE 1 MG/5 ML VIAL ONE (10:44)
[2020-05-15] MEDS ORDERED: SUCCINYLCHOLINE CHLORIDE INJ 200 MG/10 ML VIAL ONE (10:44)
[2020-05-15] MEDS ORDERED: VECURONIUM BROMIDE INJ 10 MG VIAL IV ONE (10:44)
[2020-05-15] MEDS ORDERED: NEOSTIGMINE METHYLSULFATE 10 MG/10 ML VIAL ONE (10:44)
--- NOTE | 2020-05-15 11:02 | RADIOLOGY REPORT (SQ) ---
EXAM DESCRIPTION: CT ABD/PELVIS WITH IV ONLY IMAGES COMPLETED DATE/TIME: 05/15/2020 10:34 am REASON FOR STUDY: 32; vomiting and abdominal pain COMPARISON: None. TECHNIQUE: CT scan of the abdomen and pelvis performed using helical scanning technique with dynamic intravenous contrast injection. No oral contrast. Images reviewed with lung, soft tissue, and bone windows. Reconstructed coronal and sagittal MPR images reviewed. Delayed images for evaluation of the urinary system also acquired. All images stored on PACS. All CT scanners at this facility use dose modulation, iterative reconstruction, and/or weight based d osing when appropriate to reduce radiation dose to as low as reasonably achievable (ALARA). [facility]: Dose Right [facility]: CareDose [facility]: Dose Right [facility]: Teradose 4D [facility]: XOXO Kitchen CONTRAST TYPE AND DOSE: Contrast/concentration: Isovue 350.00 mmol/ml; Total Contrast Delivered: 100 .0 ml; Total Saline Delivered: 67.9 ml RENAL FUNCTION: Creatinine 0.73 milligrams/deciliters. RADIATION DOSE: CT Rad equipment meets quality standard of care and radiation dose reduction techniq ues were employed. CTDIvol: 15.6 - 19.6 mGy. DLP: 1921 mGy-cm. LIMITATIONS: None. FINDINGS: LOWER CHEST: Mild cardiomegaly, trace left-sided pleural effusion and atelectatic opacitie s in the right lower lobe. LIVER: The relative hypoattenuation of the hepatic parenchyma compared to the splenic parenchyma on t he portal venous phase is suggestive of underlying hepatic steatosis. The portal veins are patent. There is no hepatic mass. SPLEEN: The spleen is normal in size. There is a 6 x 6 mm accessory splenule anterior to the spleen. PANCREAS: No acute gross abnormality of the pancreas. GALLBLADDER: No acute gross abnormality of the gallbladder. ADRENAL GLANDS: No mass or asymmetry. RIGHT KIDNEY AND URETER: No solid mass, hydronephrosis, nephrolithiasis, hydroureter or ureterolithia sis. LEFT KIDNEY AND URETER: No solid mass, hydronephrosis, nephrolithiasis, hydroureter or ureterolithia sis. AORTA AND VESSELS: No aneurysm or dissection of the abdominal aorta. The abdominopelvic vasculature is patent. RETROPERITONEUM: No retroperitoneal adenopathy, hemorrhage or mass. BOWEL AND PERITONEAL CAVITY: The stomach is distended. There are several fluid-filled dilated loops of jejunum in the mid abdomen that measure up to 3.4 cm in diameter ; these loops experience an abrup t transition in caliber at a focal point in the mid abdomen (image 26 of series 601). The bowel dist al to the transition point is normal in caliber. There is a trace amount of fluid in the right perih epatic space, right paracolic gutter and in the cul de sac. There is also mild stranding of the mese nteric fat. There is no free intraperitoneal gas, pneumatosis or portal venous gas. APPENDIX: Normal. PELVIS: There is a cystic lesion in the left adnexum measuring 2.7 x 2 cm that could represent an ova bess cyst. There is no abnormality of the uterus or right adnexum that is apparent on CT. The urina ry bladder is contracted. ABDOMINAL WALL: No abnormality. BONES: No acute findings. OTHER: No other finding. IMPRESSION: Findings as detailed above consistent with a high-grade small bowel obstruction. The po int of transition is located in the mid abdomen (image 26 of series 601). There is free fluid in the right perihepatic space, right pericolic gutter and in the cul de sac. There is no free intraperito ganesh gas, pneumatosis or portal venous gas. TECHNICAL DOCUMENTATION: JOB ID: [id number] Quality ID # [id number]: Final reports with documentation of one or more dose reduction techniques (e.g., Au tomated exposure control, adjustment of the mA and/or kV according to patient size, use of iterative reconstruction technique) 2010 [employer]- All Rights Reserved Reading location - IP/workstation name: [email or web address]
--- NOTE | 2020-05-15 12:47 | PDOC H&P ---
History of Present Illness Admission Date/PCP: EDITH PEÑA, DEMAR-C History of Present Illness: BABS REGAN is a 64 year old female with a medical history consisting of hypertension, "prediabetes", and no past surgical history. She reports a 2-day history of increasing abdominal pain, nausea, vomiting, and abdominal distention. Her pain is located throughout her abdominal cavity. It does not radiate anywhere specifically. She rates her pain as 8 out of 10. It does wax and wane, but it is consistently present. She has not been able to hold anything down for approximately 48 hours. The patient presented to the emergency department for evaluation. She was found to have evidence of a small bowel obstruction on CT scan. She denies chest pain, shortness of breath, fevers, chills, dizziness, orthostasis. She does report malaise, nausea, vomiting, worsening abdominal pain, and obstipation. Past Medical History Cardiac Medical History: Reports: Myocardial Infarction, Hyperlipidema, Hypertension Pulmonary Medical History: Reports: Pneumonia Endocrine Medical History: Reports: Diabetes Mellitus Type 2 Social History Smoking Status: Unknown if Ever Smoked Frequency of Alcohol Use: None Hx Recreational Drug Use: No Drugs: None Hx Prescription Drug Abuse: No Family History Family History: None, Reviewed & Not Pertinent Parental Family History Reviewed: Yes Children Family History Reviewed: Yes Sibling(s) Family History Reviewed.: Yes Medication/Allergy Home Medications: Amlodipine Besylate [Norvasc 10 mg Tablet] 10 mg PO DAILY #30 tablet 04/18/18 Atorvastatin Calcium 20 mg PO DAILY #30 tablet 04/18/18 Lisinopril/Hydrochlorothiazide [Zestoretic 20-12.5 Mg Tablet] 1 each PO DAILY #30 tablet 04/18/18 Allergies/Adverse Reactions: iodine [Iodine] Allergy (Verified 05/15/20 09:45) pear Allergy (Verified 05/15/20 09:45) shellfish derived Allergy (Verified 05/15/20 09:45) Review of Systems Constitutional: PRESENT: anorexia, fatigue. ABSENT: chills, fever(s), headache(s) Eyes: ABSENT: visual disturbances Ears: ABSENT: hearing changes Nose, Mouth, and Throat: ABSENT: sore throat Cardiovascular: ABSENT: chest pain Respiratory: ABSENT: cough, dyspnea Gastrointestinal: PRESENT: abdominal pain, bloating, heartburn, nausea, vomiting. ABSENT: hematemesis, hematochezia, melena Genitourinary: ABSENT: dysuria Musculoskeletal: ABSENT: back pain Integumentary: ABSENT: pruritus, rash Neurological: ABSENT: confusion, convulsions, dizziness Psychiatric: ABSENT: anxiety, depression Endocrine: ABSENT: cold intolerance, heat intolerance Hematologic/Lymphatic: ABSENT: easy bleeding, easy bruising Physical Exam Vital Signs: Temp Pulse Resp BP Pulse Ox 99.3 F 73 16 148/80 H 96 05/15/20 09:15 05/15/20 09:15 05/15/20 09:15 05/15/20 09:15 05/15/20 09:15 Intake & Output 05/14/20 05/15/20 05/16/20 06:59 06:59 06:59 Weight 90.718 kg General appearance: PRESENT: mild distress - abdominal discomfort Head exam: PRESENT: atraumatic, normocephalic Eye exam: PRESENT: EOMI, PERRLA. ABSENT: scleral icterus Mouth exam: PRESENT: moist, neck supple Neck exam: ABSENT: tenderness, thyromegaly, tracheal deviation Respiratory exam: PRESENT: unlabored. ABSENT: tachypnea, wheezes Cardiovascular exam: ABSENT: tachycardia Pulses: PRESENT: normal radial pulses GI/Abdominal exam: PRESENT: distended, soft, tenderness - all 4 abdominal quadrants Rectal exam: PRESENT: deferred Extremities exam: ABSENT: clubbing Musculoskeletal exam: ABSENT: deformity Neurological exam: PRESENT: alert, awake, oriented to person, oriented to place, oriented to time, oriented to situation, CN II-XII grossly intact. ABSENT: motor sensory deficit Psychiatric exam: ABSENT: agitated, anxious, depressed Focused psych exam: ABSENT: delusional Skin exam: ABSENT: cyanosis, erythema, jaundice Results Laboratory Results: 05/15/20 08:51 05/15/20 08:51 05/15/20 05/15/20 05/15/20 08:51 08:51 09:53 WBC 10.0 RBC 4.13 Hgb 12.3 Hct 36.9 MCV 90 MCH 29.9 MCHC 33.4 RDW 13.4 Plt Count 263 Seg Neutrophils % 80.6 H Sodium 140.9 Potassium 3.7 Chloride 97 L Carbon Dioxide 32 H Anion Gap 12 BUN 28 H Creatinine 0.73 Est GFR ( Amer) > 60 Glucose 196 H Calcium 10.1 Total Bilirubin 1.6 H AST 23 Alkaline Phosphatase 93 Total Protein 8.5 H Albumin 4.8 Lipase 20.5 L Urine Color TRISTAN Urine Appearance SLIGHTLY-CLOUDY Urine pH 5.0 Ur Specific [place] 1.029 Urine Protein 100 H Urine Glucose (UA) NEGATIVE Urine Ketones TRACE H Urine Blood NEGATIVE Urine Nitrite NEGATIVE Ur Leukocyte Esterase NEGATIVE Urine WBC (Auto) 2 Urine RBC (Auto) 1 Impressions: Abdomen/Pelvis CT 05/15/20 09:26 IMPRESSION: Findings as detailed above consistent with a high-grade small bowel obstruction. The point of transition is located in the mid abdomen (image 26 of series 601). There is free fluid in the right perihepatic space, right pericolic gutter and in the cul de sac. There is no free intraperitoneal gas, pneumatosis or portal venous gas. Assessment & Plan - Diagnosis (1) Small intestine obstruction Is this a current diagnosis for this admission?: Yes - Time Anticipated Discharge Disposition: Unknown Anticipated Discharge Timeframe: Unknown - Plan Summary Plan Summary: This is a 64-year-old female with what appears to be a complete obstruction on CT scan. The patient has no past surgical history, which is very concerning to me. Her obstruction could represent anything from a an intra-abdominal tumor, to undiagnosed adhesive disease. I have recommended exploratory laparoscopy, versus laparotomy to evaluate the way treat her small bowel obstruction. Currently, she has tenderness on examination. I have discussed her options at length, and she with primary surgical intervention. Risks/benefits discussed, informed consent obtained, and all questions answered.
[2020-05-15] MEDS ORDERED: ONDANSETRON HCL INJ/PF 4 MG/2 ML SDV IV PRN ×2 (12:48→21:27)
--- NOTE | 2020-05-15 13:57 | RADIOLOGY REPORT (SQ) ---
EXAM DESCRIPTION: CHEST SINGLE VIEW IMAGES COMPLETED DATE/TIME: 05/15/2020 1:46 pm REASON FOR STUDY: NG tube placement COMPARISON: 09/28/2013 EXAM PARAMETERS: NUMBER OF VIEWS: One view. TECHNIQUE: Single frontal radiographic view of the chest acquired. RADIATION DOSE: NA LIMITATIONS: None. FINDINGS: LUNGS AND PLEURA: Low lung volumes with resultant bronchovascular crowding bibasilar atele ctasis. No focal consolidation, pleural effusion, or pneumothorax. MEDIASTINUM AND HILAR STRUCTURES: No masses. Contour normal. HEART AND VASCULAR STRUCTURES: Heart normal in size. Normal vasculature. BONES: No acute findings. HARDWARE: An enteric tube terminates subdiaphragmatically within the left upper quadrant. OTHER: No other significant finding. IMPRESSION: 1. No evidence of acute cardiopulmonary abnormality. 2. Enteric tube tip and proximal port projects subdiaphragmatically within the left upper quadrant. TECHNICAL DOCUMENTATION: JOB ID: [id number] 2010 [employer]- All Rights Reserved Reading location - IP/workstation name: [email or web address]
--- NOTE | 2020-05-15 15:12 | EKG REPORT ---
SEVERITY:- BORDERLINE ECG - SINUS RHYTHM PROBABLE LEFT ATRIAL ABNORMALITY BORDERLINE INFERIOR Q WAVES : Confirmed by: Gage Koroma MD 15-May-2020 15:11:55
[2020-05-15] MEDS ORDERED: FENTANYL CITRATE INJ/PF 250 MCG/5 ML AMPULE ONE (18:19)
[2020-05-15] MEDS ORDERED: MIDAZOLAM 2 MG/2 ML INJ ONE (18:19)
[2020-05-15] MEDS ORDERED: EPHEDRINE SULFATE INJ 50 MG/1 ML AMPULE ONE (18:19)
[2020-05-15] MEDS ORDERED: PROPOFOL INJ 200 MG/20 ML VIAL IV ONE (18:20)
[2020-05-15] MEDS ORDERED: BUPIVACAINE HCL 0.25 % INJ/PF (2.5 MG/1 ML) 30 ML VIAL ONE (18:24)
[2020-05-15] MEDS ORDERED: CEFOXITIN 1 GM/D5W RTU 2 GM/100 ML RTUPB IV ONE (18:47)
[2020-05-15] MEDS ORDERED: DEXAMETHASONE SOD PHOSPHATE INJ 4 MG/1 ML VIAL ONE (20:43)
--- NOTE | 2020-05-15 21:15 | Operative Report ---
Nonrecallable Operative Report DATE OF SURGERY: 05/15/20 PREOPERATIVE DIAGNOSIS: Bowel obstruction POSTOPERATIVE DIAGNOSIS: Small bowel obstruction due to internal hernia (defect in the transverse mesocolon). OPERATION: 1. Exploratory laparoscopy, converted to exploratory laparotomy. 2. Reduction of internal hernia. 3. Closure of internal hernia defect. 4. Enterotomy with decompression of the small bowel. 5. 2 layer repair of enterotomy after decompression. SURGEON: AMANDA JEFFERSON ANESTHESIA: GA TISSUE REMOVED OR ALTERED: None COMPLICATIONS: None apparent ESTIMATED BLOOD LOSS: 50 cc PROCEDURE: Drains/implants: None. Procedure in detail: After informed consent was obtained, the patient was brought to the operating room and laid in the supine position. The area of the abdomen diminished in a normal sterile fashion. A 10 blade scalpel was used to create a left upper quadrant incision. The 5 mm trocar and camera were then inserted into the abdominal cavity under direct laparoscopic visualization using the Optiview technique. Gas insufflation was attached, and pneumoperitoneum was achieved. Once inside the abdomen, there was a large amount of distended small bowel. An attempt was made to examine the bowel, however there was very little room to work, and no progress could be made. In light of that fact, an open approach was preferred. A midline laparotomy incision was created from below the umbilicus, to the epigastric area. The linea alba fascia was incised sharply, the abdomen was entered sharply. Once the abdomen was opened, the small bowel was eviscerated. The small bowel was run from the ileocecal valve, proximally. The bowel was very decompressed at the terminal ileum. The bowel was then run proximally, and an internal hernia was identified through a rent in the transverse mesocolon. A portion of the small bowel had become lodged within the transverse mesocolon defect, causing the bowel obstruction. The small bowel was reduced back into the normal position. The rent in the transverse mesocolon was closed using 3-0 Vicryl suture in simple interrupted fashion. Once this was completed, the small bowel was inspected. The incarcerated small bowel appeared healthy, and peristalsing. There was a large amount of dilation proximally. It would be difficult to close the abdomen with the current level of dilation of the small bowel. An enterotomy was then created in the small bowel, distal to the obstruction (on a normal-appearing portion of small bowel). Using a pool suction device, a large amount of air and succus entericus was suctioned from within the small bowel. The small bowel was then easily returned to the abdominal cavity. The enterotomy was closed transversely using 3-0 Vicryl suture in simple interrupted fashion (2 layer closure). The abdomen was then copiously irrigated and suctioned, until the effluent was clear. Attention was then turned to closure of the abdomen. The midline fascia was reapproximated using #1 double-stranded, looped PDS suture in simple running fashion. The overlying skin was closed using skin paxton. A dressing was placed, and the procedure was concluded. All sponge, instrument, and needle counts were correct x2. Condition: Stable.
[2020-05-15] MEDS ORDERED: DIPHENHYDRAMINE HCL 50 MG/ML VIAL IV PRN (21:27)
[2020-05-15] MEDS ORDERED: MORPHINE SULFATE 10 MG/ML INJ IV PRN ×2 (21:27→21:39)
[2020-05-15] MEDS ORDERED: OXYCODONE-ACETAMINOPHEN 5-325 MG TABLET PO PRN ×2 (21:27)
[2020-05-15] MEDS ORDERED: PROMETHAZINE HCL INJ 25 MG/1 ML VIAL IV PRN ×2 (21:27)
[2020-05-15] MEDS ORDERED: FENTANYL CITRATE INJ/PF 100 MCG/2 ML AMPUL IV PRN ×3 (21:27)
[2020-05-15] MEDS ORDERED: MEPERIDINE HCL/PF INJ 25 MG/1 ML DISP.SYRIN IV PRN (21:27)
[2020-05-15] MEDS ORDERED: GLUCAGON,HUMAN RECOMB 1 MG INJ IM PRN (21:36)
[2020-05-15] MEDS ORDERED: DEXTROSE 50%-WATER 25 GM/50 ML DISP.SYRIN IV PRN ×2 (21:36)
[2020-05-15] MEDS ORDERED: DEXTROSE 40% GEL 15 GM TUBE PO PRN ×2 (21:36)
[2020-05-15] MEDS ORDERED: CEFOXITIN INJ 2 GM VIAL IV PRN (22:13)
[2020-05-15] MEDS: FAMOTIDINE INJ/PF 20 MG/2 ML SDV IV SCH (23:15)
[2020-05-15] MEDS: KETOROLAC TROMETHAMINE INJ/PF 30 MG/1 ML SDV IV SCH (23:15)
[2020-05-15] MEDS: NORMAL SALINE 1000 ML 1,000 ML IV PRN (23:16)
[2020-05-15] MEDS: ACETAMINOPHEN 1,000 MG/100 ML RTUPB IV SCH (23:16)
[2020-05-15] MEDS: INSULIN LISPRO 100 UNIT/ML 3 ML VIAL SUBCUT SCH (23:37)
[2020-05-16] MEDS ORDERED: CEFOXITIN SODIUM 2 GM in DEXTROSE 5%-WATER 100 ML IV SCH ×2 (02:00→10:00)
[2020-05-16 04:46] LABS: HEMOGLOBIN 11.7 g/dL (12.0-15.5); MEAN CORPUSCULAR HEMOGLOBIN 29.3 pg (27.0-33.4); MEAN CORPUSCULAR HGB CONC 32.4 g/dL (32.0-36.0); MEAN CORPUSCULAR VOLUME 90 fl (80-97); PLATELET COUNT 198 10^3/uL (150-450); RED BLOOD COUNT 3.99 10^6/uL (3.72-5.28); RED CELL DISTRIBUTION WIDTH 13.8 % (11.5-14.0); WHITE BLOOD COUNT 19.9 10^3/uL (4.0-10.5)
[2020-05-16 04:59] LABS: ALBUMIN 3.4 g/dL (3.5-5.0); ALKALINE PHOSPHATASE 63 U/L (38-126); ANION GAP 10 (5-19); ASPARTATE AMINO TRANSFERASE 24 U/L (14-36); BILIRUBIN,DIRECT 0.3 mg/dL (0.0-0.4); BILIRUBIN,TOTAL 1.5 mg/dL (0.2-1.3); BLOOD UREA NITROGEN 26 mg/dL (7-20); CALCIUM 8.6 mg/dL (8.4-10.2); CARBON DIOXIDE 26 mmol/L (22-30); CHLORIDE 102 mmol/L (98-107); GLUCOSE 192 mg/dL (75-110); POTASSIUM 3.6 mmol/L (3.6-5.0); TOTAL PROTEIN 6.3 g/dL (6.3-8.2)
[2020-05-16 05:27] LABS: ABSOLUTE LYMPHOCYTES# (MANUAL) 0.4 10^3/uL (0.5-4.7); BAND NEUTROPHILS % (MANUAL) 2 % (3-5); BASOPHILS % (MANUAL) 0 % (0-2); EOSINOPHILS % (MANUAL) 0 % (0-6); LYMPHOCYTES % (MANUAL) 2 % (13-45); MONOCYTES % (MANUAL) 5 % (3-13); SEGMENTED NEUTROPHILS % (MAN) 91 % (42-78); TOTAL CELLS COUNTED 100
[2020-05-16 05:28] LABS: OVALOCYTES SLIGHT; PLATELET COMMENT ADEQUATE; TOXIC VACUOLATION PRESENT
[2020-05-16] MEDS: ACETAMINOPHEN 1,000 MG/100 ML RTUPB IV SCH ×3 (05:35→21:21)
[2020-05-16] MEDS: KETOROLAC TROMETHAMINE INJ/PF 30 MG/1 ML SDV IV SCH ×3 (05:35→21:21)
[2020-05-16] MEDS: INSULIN LISPRO 100 UNIT/ML 3 ML VIAL SUBCUT SCH ×4 (08:42→21:28)
[2020-05-16] MEDS: NORMAL SALINE 1000 ML 1,000 ML IV PRN ×2 (08:42→21:21)
--- NOTE | 2020-05-16 09:53 | PDOC PROGRESS REPORT ---
Subjective Progress Note for:: 05/16/20 Subjective:: Much less abdominal pains compared to preop. No flatus yet. Reason For Visit: SMALL BOWEL OBSTRUCTION Physical Exam Vital Signs: Temp Pulse Resp BP Pulse Ox 97.5 F 64 20 107/52 L 94 05/16/20 07:20 05/16/20 07:20 05/16/20 07:20 05/16/20 07:20 05/16/20 07:20 Intake & Output 05/15/20 05/16/20 05/17/20 06:59 06:59 06:59 Intake Total 4800 450 Output Total 1485 Balance 3315 450 Weight 100.1 kg Exam: Abdomen is soft patient claims it is much less distended. Mild diffuse tenderness. Dressing is dry and intact. Results Laboratory Results: 05/16/20 03:42 05/16/20 03:42 05/15/20 05/16/20 05/16/20 09:53 03:42 03:42 WBC 19.9 H RBC 3.99 Hgb 11.7 L Hct 36.0 MCV 90 MCH 29.3 MCHC 32.4 RDW 13.8 Plt Count 198 Seg Neutrophils % Not Reportable Sodium 138.1 Potassium 3.6 Chloride 102 Carbon Dioxide 26 Anion Gap 10 BUN 26 H Creatinine 0.70 Est GFR ( Amer) > 60 Glucose 192 H Calcium 8.6 Total Bilirubin 1.5 H AST 24 Alkaline Phosphatase 63 Total Protein 6.3 Albumin 3.4 L Urine Color TRISTAN Urine Appearance SLIGHTLY-CLOUDY Urine pH 5.0 Ur Specific [place] 1.029 Urine Protein 100 H Urine Glucose (UA) NEGATIVE Urine Ketones TRACE H Urine Blood NEGATIVE Urine Nitrite NEGATIVE Ur Leukocyte Esterase NEGATIVE Urine WBC (Auto) 2 Urine RBC (Auto) 1 Impressions: Chest X-Ray 05/15/20 00:00 IMPRESSION: 1. No evidence of acute cardiopulmonary abnormality. 2. Enteric tube tip and proximal port projects subdiaphragmatically within the left upper quadrant. Abdomen/Pelvis CT 05/15/20 09:26 IMPRESSION: Findings as detailed above consistent with a high-grade small bowel obstruction. The point of transition is located in the mid abdomen (image 26 of series 601). There is free fluid in the right perihepatic space, right pericolic gutter and in the cul de sac. There is no free intraperitoneal gas, pneumatosis or portal venous gas. Assessment & Plan - Diagnosis (1) Small intestine obstruction Is this a current diagnosis for this admission?: Yes (2) Essential (primary) hypertension Is this a current diagnosis for this admission?: Yes (3) Obesity (BMI 30-39.9) Is this a current diagnosis for this admission?: Yes - Time Critical Time spent with patient: 15-24 minutes Anticipated Discharge Disposition: [facility] Facility Anticipated Discharge Timeframe: within 72 hours - Inpatient Certification Medical Necessity: Need Close Monitoring Due to Risk of Patient Decompensation, Need For IV Fluids, Need for Pain Control - Plan Summary Plan Summary: 64-year-old female post reduction of internal herniation by Dr. Wilder 05/15/2020. Patient appears fairly stable at this time. Plans: Continue NG tube Continue hydration. Recheck CBC in a.m.
[2020-05-16] MEDS ORDERED: CEFOXITIN 1 GM/D5W RTU 1 GM/50 ML RTUPB IV SCH (10:00)
[2020-05-16] MEDS: FAMOTIDINE INJ/PF 20 MG/2 ML SDV IV SCH ×2 (10:32→21:21)
[2020-05-16] MEDS: ENOXAPARIN SODIUM INJ 40 MG/0.4 ML DISP.SYRIN SUBCUT SCH (10:33)
[2020-05-17] MEDS: KETOROLAC TROMETHAMINE INJ/PF 30 MG/1 ML SDV IV SCH ×3 (05:26→21:36)
[2020-05-17] MEDS: ACETAMINOPHEN 1,000 MG/100 ML RTUPB IV SCH ×3 (05:26→22:30)
[2020-05-17 06:40] LABS: HEMATOCRIT 30.2 % (36.0-47.0); MEAN CORPUSCULAR HEMOGLOBIN 29.4 pg (27.0-33.4); MEAN CORPUSCULAR VOLUME 89 fl (80-97); PLATELET COUNT 178 10^3/uL (150-450); RED BLOOD COUNT 3.38 10^6/uL (3.72-5.28); RED CELL DISTRIBUTION WIDTH 13.8 % (11.5-14.0); WHITE BLOOD COUNT 13.9 10^3/uL (4.0-10.5)
[2020-05-17 06:58] LABS: ANION GAP 8 (5-19); BLOOD UREA NITROGEN 27 mg/dL (7-20); CALCIUM 8.2 mg/dL (8.4-10.2); CARBON DIOXIDE 26 mmol/L (22-30); CHLORIDE 107 mmol/L (98-107); GLUCOSE 100 mg/dL (75-110); POTASSIUM 3.3 mmol/L (3.6-5.0)
[2020-05-17 07:03] LABS: ABSOLUTE LYMPHOCYTES# (MANUAL) 0.8 10^3/uL (0.5-4.7); ABSOLUTE MONOCYTES # (MANUAL) 1.9 10^3/uL (0.1-1.4); BAND NEUTROPHILS % (MANUAL) 2 % (3-5); BASOPHILS % (MANUAL) 0 % (0-2); EOSINOPHILS % (MANUAL) 0 % (0-6); LYMPHOCYTES % (MANUAL) 5 % (13-45); MONOCYTES % (MANUAL) 14 % (3-13); SEGMENTED NEUTROPHILS % (MAN) 77 % (42-78); TOTAL CELLS COUNTED 100
[2020-05-17 07:04] LABS: OVALOCYTES SLIGHT; PLATELET COMMENT ADEQUATE
[2020-05-17 07:06] LABS: MYELOCYTES % (MANUAL) 1 % (0)
[2020-05-17] MEDS: INSULIN LISPRO 100 UNIT/ML 3 ML VIAL SUBCUT SCH ×4 (07:31→21:29)
[2020-05-17] MEDS: FAMOTIDINE INJ/PF 20 MG/2 ML SDV IV SCH ×2 (09:31→21:36)
[2020-05-17] MEDS: ENOXAPARIN SODIUM INJ 40 MG/0.4 ML DISP.SYRIN SUBCUT SCH (09:31)
[2020-05-17] MEDS: NORMAL SALINE 1000 ML 1,000 ML IV PRN ×2 (10:58→18:10)
[2020-05-17 11:04] LABS: PATH REVIEW PATHOLOGIST REVIEWED
[2020-05-17] MEDS: CEFOXITIN 1 GM/D5W RTU 1 GM/50 ML RTUPB IV SCH ×2 (12:42→21:35)
--- NOTE | 2020-05-17 23:44 | PDOC PROGRESS REPORT ---
Subjective Progress Note for:: 05/17/20 Subjective:: Less pains at the amputation site Reason For Visit: SMALL BOWEL OBSTRUCTION Physical Exam Vital Signs: Temp Pulse Resp BP Pulse Ox 98.7 F 82 18 134/62 H 100 05/17/20 16:02 05/17/20 16:02 05/17/20 16:02 05/17/20 16:02 05/17/20 16:02 Intake & Output 05/16/20 05/17/20 05/18/20 06:59 06:59 06:59 Intake Total 4800 1750 2000 Output Total 1485 300 475 Balance 3315 1450 1525 Weight 100.1 kg 100.1 kg Exam: Amputation dressing is intact and dry. JAH drain only has about 30cc of serous sanguinous fluid. Results Laboratory Results: 05/17/20 05:59 05/17/20 05:59 05/17/20 05/17/20 05:59 05:59 WBC 13.9 H RBC 3.38 L Hgb 10.0 L Hct 30.2 L MCV 89 MCH 29.4 MCHC 33.0 RDW 13.8 Plt Count 178 Seg Neutrophils % Not Reportable Sodium 140.5 Potassium 3.3 L Chloride 107 Carbon Dioxide 26 Anion Gap 8 BUN 27 H Creatinine 0.77 Est GFR ( Amer) > 60 Glucose 100 Calcium 8.2 L Impressions: Chest X-Ray 05/15/20 00:00 IMPRESSION: 1. No evidence of acute cardiopulmonary abnormality. 2. Enteric tube tip and proximal port projects subdiaphragmatically within the left upper quadrant. Abdomen/Pelvis CT 05/15/20 09:26 IMPRESSION: Findings as detailed above consistent with a high-grade small bowel obstruction. The point of transition is located in the mid abdomen (image 26 of series 601). There is free fluid in the right perihepatic space, right pericolic gutter and in the cul de sac. There is no free intraperitoneal gas, pneumatosis or portal venous gas. Assessment & Plan - Diagnosis (1) Small intestine obstruction Is this a current diagnosis for this admission?: Yes (2) Essential (primary) hypertension Is this a current diagnosis for this admission?: Yes (3) Obesity (BMI 30-39.9) Is this a current diagnosis for this admission?: Yes - Time Critical Time spent with patient: 15-24 minutes Anticipated Discharge Disposition: Residential Facility Anticipated Discharge Timeframe: within 72 hours - Inpatient Certification Medical Necessity: Need for IV Antibiotics - Plan Summary Plan Summary: 64-year-old female postop day #2 for right below-knee amputation. She remains fairly stable. The plan is to remove the dressing tomorrow and inspect the stump and remove the drain. Continue with IV antibiotics
--- NOTE | 2020-05-17 23:59 | PDOC PROGRESS REPORT ---
Subjective Progress Note for:: 05/17/20 Subjective:: Claims he just had a very small amount of flatus. Reason For Visit: SMALL BOWEL OBSTRUCTION Physical Exam Vital Signs: Temp Pulse Resp BP Pulse Ox 98.7 F 82 18 134/62 H 100 05/17/20 16:02 05/17/20 16:02 05/17/20 16:02 05/17/20 16:02 05/17/20 16:02 Intake & Output 05/16/20 05/17/20 05/18/20 06:59 06:59 06:59 Intake Total 4800 1750 2000 Output Total 1485 300 475 Balance 3315 1450 1525 Weight 100.1 kg 100.1 kg Exam: NG drainage about 400 cc of greenish fluid. Her abdomen is soft with minimal distention. Results Laboratory Results: 05/17/20 05:59 05/17/20 05:59 05/17/20 05/17/20 05:59 05:59 WBC 13.9 H RBC 3.38 L Hgb 10.0 L Hct 30.2 L MCV 89 MCH 29.4 MCHC 33.0 RDW 13.8 Plt Count 178 Seg Neutrophils % Not Reportable Sodium 140.5 Potassium 3.3 L Chloride 107 Carbon Dioxide 26 Anion Gap 8 BUN 27 H Creatinine 0.77 Est GFR ( Amer) > 60 Glucose 100 Calcium 8.2 L Impressions: Chest X-Ray 05/15/20 00:00 IMPRESSION: 1. No evidence of acute cardiopulmonary abnormality. 2. Enteric tube tip and proximal port projects subdiaphragmatically within the left upper quadrant. Abdomen/Pelvis CT 05/15/20 09:26 IMPRESSION: Findings as detailed above consistent with a high-grade small bowel obstruction. The point of transition is located in the mid abdomen (image 26 of series 601). There is free fluid in the right perihepatic space, right pericolic gutter and in the cul de sac. There is no free intraperitoneal gas, pneumatosis or portal venous gas. Assessment & Plan - Diagnosis (1) Small intestine obstruction Is this a current diagnosis for this admission?: Yes (2) Essential (primary) hypertension Is this a current diagnosis for this admission?: Yes (3) Obesity (BMI 30-39.9) Is this a current diagnosis for this admission?: Yes - Time Critical Time spent with patient: 15-24 minutes Anticipated Discharge Disposition: Home with Home Health Anticipated Discharge Timeframe: within 72 hours - Plan Summary Plan Summary: Patient is postop day #2 posterior release of internal herniation by . The plan is to DC the NG tube tonight if definitely had more flatus that keep n.p.o. and start clears next day.
[2020-05-18] MEDS: NORMAL SALINE 1000 ML 1,000 ML IV PRN ×4 (01:57→22:22)
[2020-05-18] MEDS: HYDRALAZINE HCL INJ/PF 20 MG/1 ML SDV IV PRN ×2 (01:57→23:42)
--- NOTE | 2020-05-18 05:27 | PDOC CONSULTATION ---
Consultation Consult Date: 05/18/20 Attending physician:: AMANDA JEFFERSON Provider Consulted: JACKSON WEI Consult reason:: Hypertension History of Present Illness Admission Date/PCP: 05/15/20 14:18 BHARATI MONTEZ Patient complains of: Hypertension History of Present Illness: BABS REGAN is a 64 year old female who was admitted for an acute small bowel obstruction. She was treated surgically for a small bowel obstruction resulting from an internal hernia. She has been n.p.o. with an NG tube in place and is unable to receive oral medications. Thus, she has been unable to take her oral antihypertensives and her blood pressure has been greater than 160 s ystolic since last evening. She has no acute symptoms or complaints related to her hypertension. Her greatest concern with time my evaluation is if I am the doctor who could take the tube out of her nose. Patient was seen at the request of Dr. Rd Lockwood. Past Medical History Cardiac Medical History: Reports: Coronary Artery Disease, Myocardial Infa rction, Hyperlipidema, Hypertension Denies: Atrial Fibrillation Pulmonary Medical History: Reports: Pneumonia Denies: Asthma, Chronic Obstructive Pulmonary Disease (COPD) EENT Medical History: Denies: Cataracts, Ears - Hearing aids Neurological Medical History: Denies: Hemorrhagic CVA, Ischemic CVA, Seizures Endocrine Medical History: Reports: Diabetes Mellitus Type 2 Denies: Diabetes Mellitus Type 1, Hyperthyroidism, Hypothyroidism Renal/ Medical History: Denies: Chronic Kidney Disease, Nephrolithiasis Malignancy Medical History: Reports: None GI Medical History: Denies: Cirrhosis, Hepatitis, Peptic Ulcer Disease Musculoskeltal Medical History: Denies: Arthritis, Fibromyalgia Skin Medical History: Denies: Eczema, Psoriasis Psychiatric Medical History: Denies: Alcohol Dependency, Depression, Substance Abuse, Tobacco Dependency Traumatic Medical History: Reports: None Hematology: Denies: Anemia, Bleeding Tendencies Infectious Medical History: Reports: None Past Surgical History Past Surgical History: Reports: None Social History Information Source: Patient, [facility] Records Lives with: Family Smoking Status: Never Smoker Electronic Cigarette use?: No Frequency of Alcohol Use: None Hx Recreational Drug Use: No Drugs: None Hx Prescription Drug Abuse: No - Advance Directive Resuscitation Status: Full Code Surrogate healthcare decision maker:: Arlene Godoy Family History Family History: CVA, Hypertension. denies: CAD, DM, Thyroid Disfunction Parental Family History Reviewed: Yes Children Family History Reviewed: No Sibling(s) Family History Reviewed.: Yes Medication/Allergy Home Medications: Amlodipine Besylate [Norvasc 10 mg Tablet] 10 mg PO DAILY #30 tablet 04/18/18 Atorvastatin Calcium 20 mg PO DAILY #30 tablet 04/18/18 Lisinopril/Hydrochlorothiazide [Zestoretic 20-12.5 Mg Tablet] 1 each PO DAILY #30 tablet 04/18/18 Metformin HCl [Metformin HCl ER] 1,000 mg PO DAILY 05/15/20 Allergies/Adverse Reactions: iodine [Iodine] Allergy (Verified 05/15/20 09:45) pear Allergy (Verified 05/15/20 09:45) shellfish derived Allergy (Verified 05/15/20 09:45) Review of Systems Constitutional: ABSENT: chills, fever(s) Eyes: ABSENT: visual disturbances, other - Eye pain Ears: ABSENT: hearing changes, other - Ear pain Nose, Mouth, and Throat: PRESENT: sore throat. ABSENT: headache(s) Cardiovascular: ABSENT: chest pain, palpitations Respiratory: ABSENT: cough, dyspnea Gastrointestinal: PRESENT: abdominal pain, nausea. ABSENT: constipation, diarrhea, vomiting Genitourinary: ABSENT: dysuria, hematuria Musculoskeletal: ABSENT: back pain, joint swelling Integumentary: ABSENT: pruritus, rash Neurological: ABSENT: confusion, convulsions, focal weakness, memory loss, syncope Psychiatric: ABSENT: anxiety, depression Endocrine: ABSENT: cold intolerance, heat intolerance Hematologic/Lymphatic: ABSENT: easy bleeding, easy bruising Allergic/Immunologic: ABSENT: seasonal rhinorrhea Physical Exam Vital Signs: Temp Pulse Resp BP Pulse Ox 98.7 F 82 18 134/62 H 100 05/17/20 16:02 05/17/20 16:02 05/17/20 16:02 05/17/20 16:02 05/17/20 16:02 Intake & Output 05/16/20 05/17/20 05/18/20 23:59 23:59 23:59 Intake Total 2250 2100 1100 Output Total 200 675 Balance 2050 1425 1100 Weight 100.1 kg 100.1 kg General appearance: PRESENT: no acute distress, cooperative Head exam: PRESENT: atraumatic, normocephalic Eye exam: PRESENT: conjunctiva pink. ABSENT: conjunctival injection, scleral icterus Ear exam: PRESENT: normal external ear exam. ABSENT: bleeding, drainage Mouth exam: PRESENT: dry mucosa, neck supple, other - NG tube in place Neck exam: ABSENT: thyromegaly, tracheal deviation Respiratory exam: PRESENT: clear to auscultation heidi, symmetrical, unlabored Cardiovascular exam: PRESENT: RRR. ABSENT: clicks, gallop, rubs Pulses: PRESENT: normal radial pulses, normal dorsalis pedis pul Vascular exam: PRESENT: normal capillary refill. ABSENT: pallor GI/Abdominal exam: PRESENT: hypoactive bowel sounds, soft, tenderness - At incision site Rectal exam: PRESENT: deferred Extremities exam: ABSENT: joint swelling, pedal edema Musculoskeletal exam: ABSENT: deformity, dislocation Neurological exam: PRESENT: alert, oriented to person, oriented to place, oriented to time, oriented to situation, CN II-XII grossly intact. ABSENT: motor sensory deficit Psychiatric exam: PRESENT: appropriate affect, normal mood Skin exam: PRESENT: dry, intact, warm. ABSENT: jaundice, rash, urticaria Results Laboratory Results: 05/17/20 05:59 05/17/20 05:59 05/17/20 05/17/20 05:59 05:59 WBC 13.9 H RBC 3.38 L Hgb 10.0 L Hct 30.2 L MCV 89 MCH 29.4 MCHC 33.0 RDW 13.8 Plt Count 178 Seg Neutrophils % Not Reportable Sodium 140.5 Potassium 3.3 L Chloride 107 Carbon Dioxide 26 Anion Gap 8 BUN 27 H Creatinine 0.77 Est GFR ( Amer) > 60 Glucose 100 Calcium 8.2 L Impressions: Chest X-Ray 05/15/20 00:00 IMPRESSION: 1. No evidence of acute cardiopulmonary abnormality. 2. Enteric tube tip and proximal port projects subdiaphragmatically within the left upper quadrant. Abdomen/Pelvis CT 05/15/20 09:26 IMPRESSION: Findings as detailed above consistent with a high-grade small bowel obstruction. The point of transition is located in the mid abdomen (image 26 of series 601). There is free fluid in the right perihepatic space, right pericolic gutter and in the cul de sac. There is no free intraperitoneal gas, pneumatosis or portal venous gas. Assessment and Plan - Diagnosis (1) Essential (primary) hypertension Is this a current diagnosis for this admission?: Yes (2) Small intestine obstruction Is this a current diagnosis for this admission?: Yes (3) Diabetes mellitus type 2 in obese Is this a current diagnosis for this admission?: Yes (4) Hyperlipidemia Qualifiers: Hyperlipidemia type: unspecified Qualified Code(s): E78.5 - Hyperlipidemia, unspecified Is this a current diagnosis for this admission?: Yes (5) Obesity (BMI 30-39.9) Is this a current diagnosis for this admission?: Yes - Plan Summary Summary: Patient's hypertension will be treated with hydralazine 20 mg IV every 4 hours as needed for control of a systolic blood pressure greater than 160 and/or a diastolic blood pressure greater than 100. The hospital service will follow this patient with you to the remainder of her hospital course. - Time Time Spent with patient: Less than 15 minutes Medications reviewed and adjusted accordingly: Yes Anticipated Discharge Disposition: Home, Self Care Anticipated Discharge Timeframe: Undetermined - Inpatient Certification Based on my medical assessment, after consideration of the patient's comorbidities, presenting symptoms, or acuity I expect that the services needed warrant INPATIENT care.: Yes I certify that my determination is in accordance with my understanding of Medicare's requirements for reasonable and necessary INPATIENT services [42 CFR 412.3e].: Yes Medical Necessity: Need For IV Fluids, Need for Pain Control, Need for Surgery
[2020-05-18] MEDS: KETOROLAC TROMETHAMINE INJ/PF 30 MG/1 ML SDV IV SCH ×4 (05:54→22:16)
[2020-05-18] MEDS: ACETAMINOPHEN 1,000 MG/100 ML RTUPB IV SCH ×3 (05:55→17:52)
[2020-05-18] MEDS: INSULIN LISPRO 100 UNIT/ML 3 ML VIAL SUBCUT SCH ×4 (07:25→22:06)
[2020-05-18] MEDS: FAMOTIDINE INJ/PF 20 MG/2 ML SDV IV SCH ×2 (09:32→22:16)
[2020-05-18] MEDS: CEFOXITIN 1 GM/D5W RTU 1 GM/50 ML RTUPB IV SCH ×2 (09:32→22:16)
[2020-05-18] MEDS: ENOXAPARIN SODIUM INJ 40 MG/0.4 ML DISP.SYRIN SUBCUT SCH (09:48)
--- NOTE | 2020-05-18 12:13 | PDOC PROGRESS REPORT ---
Subjective Progress Note for:: 05/18/20 Subjective:: Hospitalist service consulted for elevated blood pressure 2 days post op exlap for hernia reduction. Patient is known hypertensive on lisinopril/HCTZ and amlodipine and has not been on any of her medications due to her operation. BP running systolic 160s. She denies any chest pain, SOB, palpitations during this BP readings. She was given hydralazine IV which helped with her BP. She was seem and examined at bedside this morning. Her NG tube is out and she is allowed clear diet. She passes gas but has not had a BM yet. Reason For Visit: SMALL BOWEL OBSTRUCTION Physical Exam Vital Signs: Temp Pulse Resp BP Pulse Ox 98.7 F 88 12 150/58 H 93 05/18/20 07:24 05/18/20 07:24 05/18/20 07:24 05/18/20 07:24 05/18/20 07:24 Intake & Output 05/17/20 05/18/20 05/19/20 06:59 06:59 06:59 Intake Total 1750 3200 1000 Output Total 300 1175 Balance 1450 2025 1000 Weight 100.1 kg 102.2 kg General appearance: PRESENT: no acute distress, cooperative Head exam: PRESENT: atraumatic, normocephalic Eye exam: PRESENT: EOMI, PERRLA Mouth exam: PRESENT: moist Neck exam: PRESENT: full ROM. ABSENT: JVD Respiratory exam: PRESENT: clear to auscultation heidi, symmetrical. ABSENT: crackles, wheezes Cardiovascular exam: PRESENT: RRR, +S1, +S2 Pulses: PRESENT: +2 pedal pulses bilateral GI/Abdominal exam: PRESENT: normal bowel sounds, soft, other - midline laparotomy scar clean, dry dressing. ABSENT: guarding Extremities exam: PRESENT: full ROM Musculoskeletal exam: PRESENT: full ROM Neurological exam: PRESENT: alert, awake, oriented to person, oriented to place, oriented to time Psychiatric exam: PRESENT: normal mood Results Laboratory Results: 05/17/20 05:59 05/17/20 05:59 Impressions: Chest X-Ray 05/15/20 00:00 IMPRESSION: 1. No evidence of acute cardiopulmonary abnormality. 2. Enteric tube tip and proximal port projects subdiaphragmatically within the left upper quadrant. Abdomen/Pelvis CT 05/15/20 09:26 IMPRESSION: Findings as detailed above consistent with a high-grade small bowel obstruction. The point of transition is located in the mid abdomen (image 26 of series 601). There is free fluid in the right perihepatic space, right pericolic gutter and in the cul de sac. There is no free intraperitoneal gas, pneumatosis or portal venous gas. Assessment and Plan - Diagnosis (1) Essential (primary) hypertension Is this a current diagnosis for this admission?: Yes Plan: - current BP 150/58 - on Losartan/HCTZ, amlodipine at home - currently on hydralazine PRN for high blood pressure - will resume her home meds when she's on clear liquid. - continue to monitor (2) Small intestine obstruction Is this a current diagnosis for this admission?: Yes Plan: - post op day 3 ex.lap with reduction of hernia internally - on clear liquids - management per surgery (3) Diabetes mellitus type 2 in obese Is this a current diagnosis for this admission?: Yes Plan: - on metformin at home. will hold during admission - monitor accuchecks (4) Hyperlipidemia Qualifiers: Hyperlipidemia type: unspecified Qualified Code(s): E78.5 - Hyperlipidemia, unspecified Is this a current diagnosis for this admission?: Yes Plan: - on lipitor (5) Obesity (BMI 30-39.9) Is this a current diagnosis for this admission?: Yes Plan: advised lifestyle modification - Plan Summary Summary: Patient's hypertension will be treated with hydralazine 20 mg IV every 4 hours as needed for control of a systolic blood pressure greater than 160 and/or a diastolic blood pressure greater than 100. The hospital service will follow this patient with you to the remainder of her hospital course. - Time Time Spent with patient: 15-24 minutes Medications reviewed and adjusted accordingly: Yes Anticipated Discharge Disposition: Home, Self Care Anticipated Discharge Timeframe: to be determined
--- NOTE | 2020-05-18 17:11 | PDOC PROGRESS REPORT ---
Subjective Progress Note for:: 05/18/20 Subjective:: Patient appears to be tired, reports flatus, tolerating sips of clears well Reason For Visit: SMALL BOWEL OBSTRUCTION Physical Exam Vital Signs: Temp Pulse Resp BP Pulse Ox 98.4 F 84 16 157/73 H 93 05/18/20 16:10 05/18/20 16:10 05/18/20 16:10 05/18/20 16:10 05/18/20 16:10 Intake & Output 05/17/20 05/18/20 05/19/20 06:59 06:59 06:59 Intake Total 1750 3200 1918 Output Total 300 1175 450 Balance 1450 2025 1468 Weight 100.1 kg 102.2 kg General appearance: PRESENT: no acute distress, obese, other - Appears tired Respiratory exam: PRESENT: clear to auscultation heidi Cardiovascular exam: PRESENT: RRR GI/Abdominal exam: PRESENT: normal bowel sounds, soft, other - Surgical incision clean, dry, and intact, no peritoneal signs on palpation Results Laboratory Results: 05/17/20 05:59 05/17/20 05:59 Impressions: Chest X-Ray 05/15/20 00:00 IMPRESSION: 1. No evidence of acute cardiopulmonary abnormality. 2. Enteric tube tip and proximal port projects subdiaphragmatically within the left upper quadrant. Abdomen/Pelvis CT 05/15/20 09:26 IMPRESSION: Findings as detailed above consistent with a high-grade small bowel obstruction. The point of transition is located in the mid abdomen (image 26 of series 601). There is free fluid in the right perihepatic space, right pericolic gutter and in the cul de sac. There is no free intraperitoneal gas, pneumatosis or portal venous gas. Assessment & Plan - Diagnosis (2) Small intestine obstruction Is this a current diagnosis for this admission?: Yes - Time Anticipated Discharge Disposition: Home, Self Care Anticipated Discharge Timeframe: within 72 hours - Plan Summary Plan Summary: Assessment: Postoperative day #3 following laparotomy for small bowel hernia repair, cholecystectomy Vital signs stable Nasogastric tube removed last night Patten catheter removed today Flatus present, no bowel movement yet Sips of clears tolerated Abdomen soft, benign, incision clean, dry, and intact Plan: Continue ambulation Continue sips of clear, possibly advance diet in the morning to clears Monitor blood work tomorrow Continue IV fluids
[2020-05-18] MEDS ORDERED: MORPHINE SULFATE 10 MG/ML INJ IV PRN (17:14)
[2020-05-18] MEDS ORDERED: HYDROCHLOROTHIAZIDE PO SCH (17:30)
[2020-05-18] MEDS ORDERED: LISINOPRIL PO SCH (17:30)
[2020-05-18] MEDS ORDERED: [UNRECOGNIZED DRUG - OTHER] PO SCH (17:30)
[2020-05-18] MEDS: AMLODIPINE BESYLATE 10 MG TABLET PO SCH (18:21)
[2020-05-19] MEDS: ACETAMINOPHEN 1,000 MG/100 ML RTUPB IV SCH ×2 (03:14→09:06)
[2020-05-19 05:33] LABS: HEMATOCRIT 29.4 % (36.0-47.0); HEMOGLOBIN 9.9 g/dL (12.0-15.5); MEAN CORPUSCULAR HGB CONC 33.5 g/dL (32.0-36.0); MEAN CORPUSCULAR VOLUME 89 fl (80-97); PLATELET COUNT 191 10^3/uL (150-450); RED BLOOD COUNT 3.29 10^6/uL (3.72-5.28); RED CELL DISTRIBUTION WIDTH 13.8 % (11.5-14.0); WHITE BLOOD COUNT 14.2 10^3/uL (4.0-10.5)
[2020-05-19] MEDS: KETOROLAC TROMETHAMINE INJ/PF 30 MG/1 ML SDV IV SCH (05:50)
[2020-05-19 06:02] LABS: ANION GAP 11 (5-19); BLOOD UREA NITROGEN 9 mg/dL (7-20); CALCIUM 8.5 mg/dL (8.4-10.2); CARBON DIOXIDE 22 mmol/L (22-30); CHLORIDE 106 mmol/L (98-107); GLUCOSE 135 mg/dL (75-110); POTASSIUM 3.4 mmol/L (3.6-5.0)
[2020-05-19 06:41] LABS: BASOPHILS % (MANUAL) 0 % (0-2); EOSINOPHILS % (MANUAL) 1 % (0-6); LYMPHOCYTES % (MANUAL) 7 % (13-45); MONOCYTES % (MANUAL) 14 % (3-13); SEGMENTED NEUTROPHILS % (MAN) 78 % (42-78); TOTAL CELLS COUNTED 100
[2020-05-19 06:42] LABS: PLATELET COMMENT ADEQUATE
[2020-05-19 06:44] LABS: BURR CELLS SLIGHT; SCHISTOCYTES SLIGHT
[2020-05-19 06:46] LABS: OVALOCYTES SLIGHT
[2020-05-19] MEDS: NORMAL SALINE 1000 ML 1,000 ML IV PRN (06:50)
[2020-05-19] MEDS: AMLODIPINE BESYLATE 10 MG TABLET PO SCH (09:00)
[2020-05-19] MEDS: FAMOTIDINE INJ/PF 20 MG/2 ML SDV IV SCH (09:01)
[2020-05-19] MEDS: LISINOPRIL 10 MG TABLET PO SCH (09:05)
[2020-05-19] MEDS: HYDROCHLOROTHIAZIDE 12.5 MG TABLET PO SCH (09:05)
[2020-05-19] MEDS: ENOXAPARIN SODIUM INJ 40 MG/0.4 ML DISP.SYRIN SUBCUT SCH (09:05)
[2020-05-19] MEDS: INSULIN LISPRO 100 UNIT/ML 3 ML VIAL SUBCUT SCH ×4 (09:09→21:46)
[2020-05-19] MEDS: CEFOXITIN 1 GM/D5W RTU 1 GM/50 ML RTUPB IV SCH (10:49)
[2020-05-19] MEDS ORDERED: ACETAMINOPHEN 325 MG TABLET PO PRN (11:05)
[2020-05-19] MEDS ORDERED: TRAMADOL HCL 50 MG TABLET PO PRN (11:06)
--- NOTE | 2020-05-19 12:32 | PDOC PROGRESS REPORT ---
Subjective Progress Note for:: 05/19/20 Subjective:: Patient feeling better today, bowel function returned with stools and flatus, tolerating clear liquids well plan: Large amount of blood clot noted under the abdominal wound dressings Reason For Visit: SMALL BOWEL OBSTRUCTION Physical Exam Vital Signs: Temp Pulse Resp BP Pulse Ox 98.3 F 87 16 167/68 H 95 05/19/20 11:24 05/19/20 11:24 05/19/20 11:24 05/19/20 11:24 05/19/20 11:24 Intake & Output 05/18/20 05/19/20 05/20/20 06:59 06:59 06:59 Intake Total 3200 3498 644 Output Total 1175 2250 Balance 2024 1248 644 Weight 102.2 kg 102.4 kg General appearance: PRESENT: no acute distress, obese Respiratory exam: PRESENT: clear to auscultation heidi, decreased breath sounds Cardiovascular exam: PRESENT: RRR GI/Abdominal exam: PRESENT: normal bowel sounds, soft, other - Midline incision clean, intact, with moderate amount of blood clot around the umbilicus Results Laboratory Results: 05/19/20 04:26 05/19/20 04:26 05/19/20 05/19/20 04:26 04:26 WBC 14.2 H RBC 3.29 L Hgb 9.9 L Hct 29.4 L MCV 89 MCH 30.0 MCHC 33.5 RDW 13.8 Plt Count 191 Seg Neutrophils % Not Reportable Sodium 138.9 Potassium 3.4 L Chloride 106 Carbon Dioxide 22 Anion Gap 11 BUN 9 Creatinine 0.49 L Est GFR ( Amer) > 60 Glucose 135 H Calcium 8.5 Impressions: Chest X-Ray 05/15/20 00:00 IMPRESSION: 1. No evidence of acute cardiopulmonary abnormality. 2. Enteric tube tip and proximal port projects subdiaphragmatically within the left upper quadrant. Abdomen/Pelvis CT 05/15/20 09:26 IMPRESSION: Findings as detailed above consistent with a high-grade small bowel obstruction. The point of transition is located in the mid abdomen (image 26 of series 601). There is free fluid in the right perihepatic space, right pericolic gutter and in the cul de sac. There is no free intraperitoneal gas, pneumatosis or portal venous gas. Assessment & Plan - Diagnosis (1) Diabetes mellitus type 2 in obese Is this a current diagnosis for this admission?: Yes (2) Small intestine obstruction Is this a current diagnosis for this admission?: Yes - Time Anticipated Discharge Disposition: Home, Self Care Anticipated Discharge Timeframe: within 72 hours - Plan Summary Plan Summary: Assessment: Postoperative day #4 following laparotomy for small bowel internal hernia, cholecystectomy Patient vital signs stable Bowel function returned with stools and flatus Clear liquid diet tolerated Physical exam shows a benign abdomen with a moderate amount of blood clot along the midline abdominal incision in the periumbilical area, most likely skin bleeder Low potassium 2.4 Leukocytosis 14.3 Patient in need of oxygen 2 L/min Plan: Replace potassium 60 mEq IV piggyback Recheck potassium tomorrow CBC in a.m. Chest x-ray PA and lateral today Bilateral lower extremity venous duplex today Urinalysis with reflex culture pain Stop IV fluids Start oral antacid Apply abdominal binder and pressure dressings to the midline abdominal wound Increase diet to full liquids for lunch and low-residue diet at dinner
[2020-05-19] MEDS: LEVALBUTEROL HCL NEB 0.63 MG/3 ML AMPUL NEB SCH ×2 (13:53→20:37)
[2020-05-19] MEDS: POTASSI CL 20 MEQ/50 ML RIDER 20 MEQ/50 ML RTUPB IV SCH ×3 (14:06→19:14)
--- NOTE | 2020-05-19 15:09 | RADIOLOGY REPORT (SQ) ---
EXAM DESCRIPTION: CHEST 2 VIEWS IMAGES COMPLETED DATE/TIME: 05/19/2020 1:45 pm REASON FOR STUDY: Persistent leukocytosis rule out pneumonia COMPARISON: Chest x-ray 05/15/2020. EXAM PARAMETERS: NUMBER OF VIEWS: two views TECHNIQUE: Digital Frontal and Lateral radiographic views of the chest acquired. RADIATION DOSE: NA LIMITATIONS: none FINDINGS: LUNGS AND PLEURA: Interval development of small bilateral pleural effusions with bibasilar airspace opacities. No pneumothorax. MEDIASTINUM AND HILAR STRUCTURES: No masses or contour abnormalities. HEART AND VASCULAR STRUCTURES: Heart normal size. No evidence for failure. BONES: Multilevel degenerative changes at the spine. HARDWARE: Interval removal of the enteric tube. Gaseous distension with air-fluid levels at the visu alized small bowel loops at the upper abdomen measuring 4 cm in diameter. IMPRESSION: 1. Interval development of small bilateral pleural effusions with bibasilar airspace o pacities, may be secondary to atelectasis or pneumonia. 2. Interval removal of the enteric tube. Gaseous distension with air-fluid levels at the visualized small bowel loops at the upper abdomen, may be secondary to ileus versus small bowel obstruction. TECHNICAL DOCUMENTATION: JOB ID: [id number] [employer]- All Rights Reserved Reading location - IP/workstation name: [email or web address]
--- NOTE | 2020-05-19 16:28 | PDOC PROGRESS REPORT ---
Subjective Progress Note for:: 05/19/20 Subjective:: Hospitalist service consulted for elevated blood pressure 2 days post op exlap for hernia reduction. Patient is known hypertensive on lisinopril/HCTZ and amlodipine and has not been on any of her medications due to her operation. BP running systolic 160s. She denies any chest pain, SOB, palpitations during this BP readings. She was given hydralazine IV which helped with her BP. She was seem and examined at bedside this morning. Her NG tube is out and she is allowed clear diet. She passes gas but has not had a BM yet. May 19, 2020. Patient was seen and examined at bedside. He is postop day 4 following laparotomy for small bowel obstruction secondary to internal hernia .she denies any headache chest pain shortness of breath. She was able to have 1 bowel movement. Her diet has been advanced and we were able to resume her blood pressure medications. Current blood pressure 160/87 asymptomatic. Reason For Visit: SMALL BOWEL OBSTRUCTION Physical Exam Vital Signs: Temp Pulse Resp BP Pulse Ox 98.3 F 68 16 167/68 H 94 05/19/20 11:24 05/19/20 13:53 05/19/20 13:53 05/19/20 11:24 05/19/20 13:53 Intake & Output 05/18/20 05/19/20 05/20/20 06:59 06:59 06:59 Intake Total 3200 3498 884 Output Total 1175 2250 700 Balance 5 1248 184 Weight 102.2 kg 102.4 kg General appearance: PRESENT: no acute distress, cooperative Head exam: PRESENT: atraumatic, normocephalic Eye exam: PRESENT: EOMI, PERRLA Mouth exam: PRESENT: moist Neck exam: PRESENT: full ROM. ABSENT: JVD Respiratory exam: PRESENT: clear to auscultation heidi, symmetrical, unlabored Cardiovascular exam: PRESENT: RRR, +S1, +S2 Pulses: PRESENT: +2 pedal pulses bilateral GI/Abdominal exam: PRESENT: normal bowel sounds, soft. ABSENT: rebound, tenderness Extremities exam: PRESENT: full ROM Musculoskeletal exam: PRESENT: full ROM Neurological exam: PRESENT: alert, awake, oriented to person, oriented to place, oriented to time Psychiatric exam: PRESENT: normal mood Results Laboratory Results: 05/19/20 04:26 05/19/20 04:26 05/19/20 05/19/20 04:26 04:26 WBC 14.2 H RBC 3.29 L Hgb 9.9 L Hct 29.4 L MCV 89 MCH 30.0 MCHC 33.5 RDW 13.8 Plt Count 191 Seg Neutrophils % Not Reportable Sodium 138.9 Potassium 3.4 L Chloride 106 Carbon Dioxide 22 Anion Gap 11 BUN 9 Creatinine 0.49 L Est GFR ( Amer) > 60 Glucose 135 H Calcium 8.5 Impressions: Abdomen/Pelvis CT 05/15/20 09:26 IMPRESSION: Findings as detailed above consistent with a high-grade small bowel obstruction. The point of transition is located in the mid abdomen (image 26 of series 601). There is free fluid in the right perihepatic space, right pericolic gutter and in the cul de sac. There is no free intraperitoneal gas, pneumatosis or portal venous gas. Chest X-Ray 05/19/20 00:00 IMPRESSION: 1. Interval development of small bilateral pleural effusions with bibasilar airspace opacities, may be secondary to atelectasis or pneumonia. 2. Interval removal of the enteric tube. Gaseous distension with air-fluid levels at the visualized small bowel loops at the upper abdomen, may be secondary to ileus versus small bowel obstruction. Assessment and Plan - Diagnosis (1) Essential (primary) hypertension Is this a current diagnosis for this admission?: Yes Plan: - current BP 150/58 - on Losartan/HCTZ, amlodipine at home - currently on hydralazine PRN for high blood pressure -Home medications amlodipine 10 mg daily lisinopril 20 mg daily resumed. Current blood pressure 160s over 87 - continue to monitor (2) Small intestine obstruction Is this a current diagnosis for this admission?: Yes Plan: - post op day 4 ex.lap with reduction of hernia internally - on full liquid - management per surgery (3) Diabetes mellitus type 2 in obese Is this a current diagnosis for this admission?: Yes Plan: - on metformin at home. will hold during admission - monitor accuchecks (4) Hyperlipidemia Qualifiers: Hyperlipidemia type: unspecified Qualified Code(s): E78.5 - Hyperlipidemia, unspecified Is this a current diagnosis for this admission?: Yes Plan: - on lipitor (5) Obesity (BMI 30-39.9) Is this a current diagnosis for this admission?: Yes Plan: advised lifestyle modification - Plan Summary Summary: Patient's hypertension will be treated with hydralazine 20 mg IV every 4 hours as needed for control of a systolic blood pressure greater than 160 and/or a diastolic blood pressure greater than 100. The hospital service will follow this patient with you to the remainder of her hospital course. - Time Time Spent with patient: 15-24 minutes Anticipated Discharge Disposition: Home, Self Care Anticipated Discharge Timeframe: within 48 hours
[2020-05-19] MEDS ORDERED: PIPERACILLIN/TAZOBACTAM 3.375 GM VIAL IV PRN (18:41)
[2020-05-19] MEDS ORDERED: VANCOMYCIN HCL 0 MG in DEXTROSE 5%-WATER 250 ML IV NR (18:45)
[2020-05-19] MEDS ORDERED: POTASSI CL 20 MEQ/50 ML RIDER 20 MEQ/50 ML RTUPB IV ONE (19:10)
[2020-05-19 20:10] LABS: APPEARANCE,URINE CLEAR; BILIRUBIN,URINE NEGATIVE (NEGATIVE); COLOR,URINE YELLOW; GLUCOSE, URINE NEGATIVE (NEGATIVE); KETONES,URINE 20 mg/dL (NEGATIVE); PROTEIN,URINE 30 mg/dL (NEGATIVE); URINE SPECIFIC GRAVITY 1.012; UROBILINOGEN,URINE NEGATIVE mg/dL (<2.0)
[2020-05-19] MEDS ORDERED: PIPERACILLIN/TAZOBACTAM 3.375 GM VIAL IV ONE (20:26)
[2020-05-19] MEDS ORDERED: PIPERACILLIN SODIUM/TAZOBACTAM 3.375 GM in NORMAL SALINE 100 ML IV ONE (20:30)
[2020-05-19] MEDS ORDERED: VANCOMYCIN HCL INJ 1000 MG VIAL IV PRN (20:34)
[2020-05-19] MEDS ORDERED: VANCOMYCIN HCL 1,250 MG in DEXTROSE 5%-WATER 250 ML IV ONE (21:00)
--- NOTE | 2020-05-19 21:10 | RADIOLOGY REPORT (SQ) ---
EXAM DESCRIPTION: US EXTREMITY VEINS BILATERAL COMPLETED DATE/TME: 05/19/2020 00:00 CLINICAL HISTORY: 64 years, Female, leukocytosis, POD 4 after laparotomy, POD#4 EXAM DESCRIPTION: CLINICAL HISTORY: 64 years Female leukocytosis, POD 4 after laparotomy, POD#4 COMPARISON: None. TECHNIQUE: Duplex and color Doppler imaging performed to evaluate the extremity deep venous structures. Compression imaging and augmentation imaging performed. FINDINGS: Left distal femoral vein was not seen. Left peroneal vein was not seen at the knee. No thrombus is identified in the deep venous structures imaged. There is normal flow, compressibility, and augmentation throughout. IMPRESSION: No DVT is identified.
[2020-05-19] MEDS ORDERED: VANCOMYCIN HCL INJ 500 MG VIAL ONE (21:19)
[2020-05-19] MEDS ORDERED: VANCOMYCIN HCL INJ 1000 MG VIAL ONE (21:19)
[2020-05-19] MEDS: FAMOTIDINE 20 MG TABLET PO SCH (22:03)
[2020-05-20 06:13] LABS: HEMATOCRIT 26.4 % (36.0-47.0); HEMOGLOBIN 8.8 g/dL (12.0-15.5); MEAN CORPUSCULAR HEMOGLOBIN 29.6 pg (27.0-33.4); MEAN CORPUSCULAR HGB CONC 33.4 g/dL (32.0-36.0); MEAN CORPUSCULAR VOLUME 89 fl (80-97); PLATELET COUNT 192 10^3/uL (150-450); RED BLOOD COUNT 2.97 10^6/uL (3.72-5.28); RED CELL DISTRIBUTION WIDTH 13.9 % (11.5-14.0); WHITE BLOOD COUNT 11.5 10^3/uL (4.0-10.5)
[2020-05-20 06:41] LABS: ABSOLUTE LYMPHOCYTES# (MANUAL) 0.8 10^3/uL (0.5-4.7); ABSOLUTE MONOCYTES # (MANUAL) 1.7 10^3/uL (0.1-1.4); BASOPHILS % (MANUAL) 0 % (0-2); EOSINOPHILS % (MANUAL) 1 % (0-6); LYMPHOCYTES % (MANUAL) 7 % (13-45); MONOCYTES % (MANUAL) 15 % (3-13); SEGMENTED NEUTROPHILS % (MAN) 77 % (42-78); TOTAL CELLS COUNTED 100
[2020-05-20 06:42] LABS: PLATELET COMMENT ADEQUATE; RBC MORPHOLOGY COMMENT NORMO-CYTIC/CHROMIC; TOXIC VACUOLATION PRESENT
[2020-05-20] MEDS: LEVALBUTEROL HCL NEB 0.63 MG/3 ML AMPUL NEB SCH ×3 (08:24→20:16)
[2020-05-20 08:27] LABS: ANION GAP 8 (5-19); BLOOD UREA NITROGEN 5 mg/dL (7-20); CARBON DIOXIDE 29 mmol/L (22-30); CHLORIDE 101 mmol/L (98-107); GLUCOSE 125 mg/dL (75-110)
[2020-05-20] MEDS: INSULIN LISPRO 100 UNIT/ML 3 ML VIAL SUBCUT SCH ×5 (08:31→21:35)
[2020-05-20] MEDS: LISINOPRIL 10 MG TABLET PO SCH (09:12)
[2020-05-20] MEDS: AMLODIPINE BESYLATE 10 MG TABLET PO SCH (09:12)
[2020-05-20] MEDS: HYDROCHLOROTHIAZIDE 12.5 MG TABLET PO SCH (09:12)
[2020-05-20] MEDS: FAMOTIDINE 20 MG TABLET PO SCH ×2 (09:12→21:33)
--- NOTE | 2020-05-20 11:40 | PDOC PROGRESS REPORT ---
Subjective Progress Note for:: 05/20/20 Reason For Visit: SMALL BOWEL OBSTRUCTION Physical Exam Vital Signs: Temp Pulse Resp BP Pulse Ox 99.2 F 89 16 167/80 H 98 05/20/20 08:00 05/20/20 08:26 05/20/20 08:26 05/20/20 08:00 05/20/20 08:26 Intake & Output 05/19/20 05/20/20 05/21/20 06:59 06:59 06:59 Intake Total 3498 2294 Output Total 2250 2500 Balance 1248 -206 Weight 102.4 kg 103.1 kg Results Laboratory Results: 05/20/20 04:38 05/20/20 07:22 05/19/20 05/20/20 05/20/20 20:00 04:38 04:38 WBC 11.5 H RBC 2.97 L Hgb 8.8 L Hct 26.4 L MCV 89 MCH 29.6 MCHC 33.4 RDW 13.9 Plt Count 192 Seg Neutrophils % Not Reportable Sodium Cancelled Potassium Cancelled Chloride Cancelled Carbon Dioxide Cancelled Anion Gap Cancelled BUN Cancelled Creatinine Cancelled Est GFR ( Amer) Cancelled Est GFR (Non-Af Amer) Cancelled Glucose Cancelled Calcium Cancelled Urine Color YELLOW Urine Appearance CLEAR Urine pH 7.0 Ur Specific [place] 1.012 Urine Protein 30 H Urine Glucose (UA) NEGATIVE Urine Ketones 20 H Urine Blood MODERATE H Urine RBC (Auto) 21 05/20/20 07:22 WBC RBC Hgb Hct MCV MCH MCHC RDW Plt Count Seg Neutrophils % Sodium 138.4 Potassium 4.0 Chloride 101 Carbon Dioxide 29 Anion Gap 8 BUN 5 L Creatinine 0.44 L Est GFR ( Amer) > 60 Est GFR (Non-Af Amer) Glucose 125 H Calcium 9.0 Urine Color Urine Appearance Urine pH Ur Specific [place] Urine Protein Urine Glucose (UA) Urine Ketones Urine Blood Urine RBC (Auto) Impressions: Abdomen/Pelvis CT 05/15/20 09:26 IMPRESSION: Findings as detailed above consistent with a high-grade small bowel obstruction. The point of transition is located in the mid abdomen (image 26 of series 601). There is free fluid in the right perihepatic space, right pericolic gutter and in the cul de sac. There is no free intraperitoneal gas, pneumatosis or portal venous gas. Chest X-Ray 05/19/20 00:00 IMPRESSION: 1. Interval development of small bilateral pleural effusions with bibasilar airspace opacities, may be secondary to atelectasis or pneumonia. 2. Interval removal of the enteric tube. Gaseous distension with air-fluid levels at the visualized small bowel loops at the upper abdomen, may be secondary to ileus versus small bowel obstruction. Venous Doppler Study 05/19/20 00:00 IMPRESSION: No DVT is identified. Assessment & Plan - Diagnosis (1) Small intestine obstruction Is this a current diagnosis for this admission?: Yes - Time Anticipated Discharge Disposition: Home, Self Care Anticipated Discharge Timeframe: within 48 hours - Plan Summary Plan Summary: 64-year-old female status post exploratory laparotomy for a small bowel obstruc tion due to an internal hernia. The patient is passing flatus, tolerating a diet, and slowly improving. She denies any significant abdominal pain. She does report shortness of breath. I believe she has developed postoperative pneumonia. The hospitalist is seeing her for this, and for her hypertension. I have encouraged her to get out of bed today. I have encouraged her to use her incentive spirometer. She is reaching less than 1000 cc on her incentive spirometer today. I have encouraged her that she will need to reach 1500 today, to improve her breathing. Wean O2 as tolerated.
[2020-05-20] MEDS: VANCOMYCIN HCL 1,500 MG in DEXTROSE 5%-WATER 250 ML IV SCH ×2 (14:13→21:34)
--- NOTE | 2020-05-20 17:11 | PDOC PROGRESS REPORT ---
Subjective Progress Note for:: 05/20/20 Subjective:: Hospitalist service consulted for elevated blood pressure 2 days post op exlap for hernia reduction. Patient is known hypertensive on lisinopril/HCTZ and amlodipine and has not been on any of her medications due to her operation. BP running systolic 160s. She denies any chest pain, SOB, palpitations during this BP readings. She was given hydralazine IV which helped with her BP. She was seem and examined at bedside this morning. Her NG tube is out and she is allowed clear diet. She passes gas but has not had a BM yet. May 19, 2020. Patient was seen and examined at bedside. He is postop day 4 following laparotomy for small bowel obstruction secondary to internal hernia .she denies any headache chest pain shortness of breath. She was able to have 1 bowel movement. Her diet has been advanced and we were able to resume her blood pressure medications. Current blood pressure 160/87 asymptomatic. 05/20/20. Patient was seen and examined at bedside. She reports feeling weak overall and she attributes this to her recent surgery. She denies any cough but states that she has been SOB since coming out of surgery with a persistent white count. CXR that was done showed small bilateral pleural effusion and Pneumonia. US of leg negative for DVT, she has been on lovenox. Blood culture pending, unable to obtain sputum culture since she's not really coughing up phlegm. She was started on zosyn and vanc yesterday for HAP. Incentive spirometry ordered. P T/OT ordered. She has been having BM and passing gas. Reason For Visit: SMALL BOWEL OBSTRUCTION Physical Exam Vital Signs: Temp Pulse Resp BP Pulse Ox 98.6 F 87 16 151/76 H 97 05/20/20 11:06 05/20/20 14:37 05/20/20 14:37 05/20/20 11:06 05/20/20 14:37 Intake & Output 05/19/20 05/20/20 05/21/20 06:59 06:59 06:59 Intake Total 3498 2294 750 Output Total 2250 2500 700 Balance 1248 -206 50 Weight 102.4 kg 103.1 kg General appearance: PRESENT: no acute distress, cooperative Head exam: PRESENT: atraumatic, normocephalic Eye exam: PRESENT: EOMI, PERRLA Mouth exam: PRESENT: moist Neck exam: PRESENT: full ROM Respiratory exam: PRESENT: rales, symmetrical, unlabored. ABSENT: wheezes Pulses: PRESENT: +2 pedal pulses bilateral GI/Abdominal exam: PRESENT: normal bowel sounds, soft, other - Midline scar covered in clean dry dressing.. ABSENT: tenderness Extremities exam: PRESENT: full ROM Musculoskeletal exam: PRESENT: full ROM Neurological exam: PRESENT: alert, awake, oriented to person, oriented to place, oriented to time Psychiatric exam: PRESENT: normal mood Skin exam: PRESENT: normal color Results Laboratory Results: 05/20/20 04:38 05/20/20 07:22 05/19/20 05/20/20 05/20/20 20:00 04:38 04:38 WBC 11.5 H RBC 2.97 L Hgb 8.8 L Hct 26.4 L MCV 89 MCH 29.6 MCHC 33.4 RDW 13.9 Plt Count 192 Seg Neutrophils % Not Reportable Sodium Cancelled Potassium Cancelled Chloride Cancelled Carbon Dioxide Cancelled Anion Gap Cancelled BUN Cancelled Creatinine Cancelled Est GFR ( Amer) Cancelled Est GFR (Non-Af Amer) Cancelled Glucose Cancelled Calcium Cancelled Urine Color YELLOW Urine Appearance CLEAR Urine pH 7.0 Ur Specific [place] 1.012 Urine Protein 30 H Urine Glucose (UA) NEGATIVE Urine Ketones 20 H Urine Blood MODERATE H Urine RBC (Auto) 21 05/20/20 07:22 WBC RBC Hgb Hct MCV MCH MCHC RDW Plt Count Seg Neutrophils % Sodium 138.4 Potassium 4.0 Chloride 101 Carbon Dioxide 29 Anion Gap 8 BUN 5 L Creatinine 0.44 L Est GFR ( Amer) > 60 Est GFR (Non-Af Amer) Glucose 125 H Calcium 9.0 Urine Color Urine Appearance Urine pH Ur Specific [place] Urine Protein Urine Glucose (UA) Urine Ketones Urine Blood Urine RBC (Auto) Impressions: Abdomen/Pelvis CT 05/15/20 09:26 IMPRESSION: Findings as detailed above consistent with a high-grade small bowel obstruction. The point of transition is located in the mid abdomen (image 26 of series 601). There is free fluid in the right perihepatic space, right pericolic gutter and in the cul de sac. There is no free intraperitoneal gas, pneumatosis or portal venous gas. Chest X-Ray 05/19/20 00:00 IMPRESSION: 1. Interval development of small bilateral pleural effusions with bibasilar airspace opacities, may be secondary to atelectasis or pneumonia. 2. Interval removal of the enteric tube. Gaseous distension with air-fluid levels at the visualized small bowel loops at the upper abdomen, may be secondary to ileus versus small bowel obstruction. Venous Doppler Study 05/19/20 00:00 IMPRESSION: No DVT is identified. Assessment and Plan - Diagnosis (1) Post-op pneumonia Is this a current diagnosis for this admission?: Yes Plan: - POD 5 laparotomy for SOB 2/2 internal hernia, cholcystectomy - persistent SOB requiring O2 support and WBC elevation - CXR showed small bilateral pleural effusion and pneumonia - Blood cultures oending, no sputum culture becasue patient is not really producing phlegm - negative DVT on US - Vanc and zosyn to cover for HAP - incentive spirometry - PT/OT for ambulation - wean off O2 as tolerated. (2) Small intestine obstruction Is this a current diagnosis for this admission?: Yes (3) Essential (primary) hypertension Is this a current diagnosis for this admission?: Yes Plan: - current BP 150/58 - on Losartan/HCTZ, amlodipine at home - currently on hydralazine PRN for high blood pressure -Home medications amlodipine 10 mg daily lisinopril 20 mg daily resumed. - continue to monitor (4) Diabetes mellitus type 2 in obese Is this a current diagnosis for this admission?: Yes Plan: - on metformin at home. will hold during admission - SSI - monitor accuchecks (5) Hyperlipidemia Qualifiers: Hyperlipidemia type: unspecified Qualified Code(s): E78.5 - Hyperlipidemia, unspecified Is this a current diagnosis for this admission?: Yes Plan: - on lipitor (6) Obesity (BMI 30-39.9) Is this a current diagnosis for this admission?: Yes Plan: advised lifestyle modification - Plan Summary Summary: She is postop day 5 ex lap secondary to SBO due to internal hernia. Initial reason for hospitalist consult was for hypertension. However since then she has been complaining of shortness of breath with elevated WBC. Chest x-ray that was done showed small bilateral pleural effusion and pneumonia. She has been on oxygen support via nasal cannula due to shortness of breath, no productive cough no fever. Ultrasound of the leg negative for DVT. She is on Zosyn and Vanco for hospital-acquired pneumonia, pending blood culture results. She has been encouraged to use incentive spirometry as well as ambulation, PT OT ordered. - Time Time Spent with patient: 25-34 minutes Medications reviewed and adjusted accordingly: Yes Anticipated Discharge Disposition: Home, Self Care Anticipated Discharge Timeframe: to be determined
[2020-05-21] MEDS: VANCOMYCIN HCL 1,500 MG in DEXTROSE 5%-WATER 250 ML IV SCH ×2 (06:50→16:56)
[2020-05-21] MEDS ORDERED: ALBUTEROL SULFATE 0.083% NEB 2.5 MG/3 ML AMPUL NEB PRN (07:59)
[2020-05-21] MEDS: ALBUTEROL SULFATE 0.083% NEB 2.5 MG/3 ML AMPUL NEB SCH ×3 (08:32→20:35)
[2020-05-21] MEDS: INSULIN LISPRO 100 UNIT/ML 3 ML VIAL SUBCUT SCH ×4 (08:35→22:37)
[2020-05-21] MEDS ORDERED: PIPERACILLIN SODIUM/TAZOBACTAM 3.375 GM in NORMAL SALINE 100 ML IV SCH (09:00)
[2020-05-21] MEDS: GUAIFENESIN 600 MG TABLET.SA PO SCH ×2 (10:54→22:37)
[2020-05-21] MEDS: FAMOTIDINE 20 MG TABLET PO SCH ×2 (10:54→22:37)
[2020-05-21] MEDS: AMLODIPINE BESYLATE 10 MG TABLET PO SCH (10:54)
[2020-05-21] MEDS: LISINOPRIL 10 MG TABLET PO SCH (10:54)
[2020-05-21] MEDS: HYDROCHLOROTHIAZIDE 12.5 MG TABLET PO SCH (10:54)
[2020-05-21] MEDS: ENOXAPARIN SODIUM INJ 40 MG/0.4 ML DISP.SYRIN SUBCUT SCH (10:55)
--- NOTE | 2020-05-21 17:12 | PDOC PROGRESS REPORT ---
Subjective Progress Note for:: 05/21/20 Subjective:: Patient comfortable, has no complaints, tolerating low residue diet well, bowel function returned, improved respiration Reason For Visit: SMALL BOWEL OBSTRUCTION Physical Exam Vital Signs: Temp Pulse Resp BP Pulse Ox 98.5 F 80 16 149/74 H 99 05/20/20 23:59 05/21/20 14:30 05/21/20 14:30 05/20/20 23:59 05/21/20 14:30 Intake & Output 05/20/20 05/21/20 05/22/20 06:59 06:59 06:59 Intake Total 2293 2009 450 Output Total 2500 3100 Balance -206 -1090 450 Weight 103.1 kg 103.1 kg General appearance: PRESENT: no acute distress, obese Respiratory exam: PRESENT: clear to auscultation heidi Cardiovascular exam: PRESENT: RRR GI/Abdominal exam: PRESENT: hypoactive bowel sounds, soft, other - Midline incision clean, dry, intact, no peritoneal signs on palpation Results Laboratory Results: 05/20/20 04:38 05/20/20 07:22 05/19/20 20:00 Clean Catch Midstream Urine Culture - Final NO GROWTH 2 DAYS Impressions: Abdomen/Pelvis CT 05/15/20 09:26 IMPRESSION: Findings as detailed above consistent with a high-grade small bowel obstruction. The point of transition is located in the mid abdomen (image 26 of series 601). There is free fluid in the right perihepatic space, right pericolic gutter and in the cul de sac. There is no free intraperitoneal gas, pneumatosis or portal venous gas. Chest X-Ray 05/19/20 00:00 IMPRESSION: 1. Interval development of small bilateral pleural effusions with bibasilar airspace opacities, may be secondary to atelectasis or pneumonia. 2. Interval removal of the enteric tube. Gaseous distension with air-fluid levels at the visualized small bowel loops at the upper abdomen, may be secondary to ileus versus small bowel obstruction. Venous Doppler Study 05/19/20 00:00 IMPRESSION: No DVT is identified. Assessment & Plan - Diagnosis (1) Diabetes mellitus type 2 in obese Is this a current diagnosis for this admission?: Yes (2) Small intestine obstruction Is this a current diagnosis for this admission?: Yes - Time Anticipated Discharge Disposition: Home, Self Care Anticipated Discharge Timeframe: within 24 hours - Plan Summary Plan Summary: Assessment: Postoperative day #6 following laparotomy for small bowel obstruction due to internal hernia and cholecystectomy Patient vital signs stable, afebrile Pulse oximetry improved, normal at room air Good urine output Bowel function returned White blood cell count down to 11.5 Physical exam unremarkable with abdominal wound clean, dry, and intact Abdomen soft Possible left lower lobe pneumonia treated with IV antibiotics until today Plan: Continue current management Incentive spirometer to be used 10 times each hour while awake Patient on oral antibiotics (Augmentin) seen today Check CBC and BMP tomorrow If patient continues to improve, the patient can be discharged home tomorrow
--- NOTE | 2020-05-21 19:16 | PDOC PROGRESS REPORT ---
Subjective Progress Note for:: 05/21/20 Subjective:: Patient is a 64-year-old female with a past medical history of hypertension, hyperlipidemia, IL, DM 2, and obesity who was admitted to the surgical service for Small bowel obstruction. The hospitalist service was consulted 05/19/2020 for hypertension management and possible developing pneumonia. Patient was seen on morning rounds. She is found sitting up to the recliner, comfortably, on room air. It is unclear why, but nursing and respiratory therapy documentation continues to show the patient on 1 to 3 L maintaining oxygen saturations of 99%. Patient reports that she is feeling well and is hopeful to discharge home soon. She reports that her cough and dyspnea have resolved. She is noted to be speaking in full sentences without increased work of breathing and clear lung sounds. She confirms that she is passing gas, and is tolerating p.o. intake without difficulty. Has not yet had a bowel movement. She further denies fever, chills, chest pain, palpitations, orthopnea, abdominal pain, nausea and vomiting. She has no questions or concerns at this time. No concerns per nursing. Reason For Visit: SMALL BOWEL OBSTRUCTION Physical Exam Vital Signs: Temp Pulse Resp BP Pulse Ox 98.5 F 80 16 149/74 H 99 05/20/20 23:59 05/21/20 14:30 05/21/20 14:30 05/20/20 23:59 05/21/20 14:30 Intake & Output 05/20/20 05/21/20 05/22/20 06:59 06:59 06:59 Intake Total 2294 2010 450 Output Total 2500 3100 Balance -206 -1090 450 Weight 103.1 kg 103.1 kg General appearance: PRESENT: no acute distress, cooperative, morbidly obese, well-developed, well-nourished Head exam: PRESENT: atraumatic, normocephalic Eye exam: PRESENT: conjunctiva pink, EOMI, PERRLA. ABSENT: scleral icterus Mouth exam: PRESENT: moist, tongue midline Respiratory exam: PRESENT: clear to auscultation heidi, symmetrical, unlabored. ABSENT: rales, rhonchi, wheezes Cardiovascular exam: PRESENT: RRR. ABSENT: diastolic murmur, rubs, systolic murmur Vascular exam: PRESENT: normal capillary refill Rectal exam: PRESENT: deferred Extremities exam: PRESENT: full ROM. ABSENT: calf tenderness, clubbing, pedal edema Neurological exam: PRESENT: alert, awake, oriented to person, oriented to place, oriented to time, oriented to situation, CN II-XII grossly intact. ABSENT: motor sensory deficit Psychiatric exam: PRESENT: appropriate affect, normal mood. ABSENT: homicidal ideation, suicidal ideation Skin exam: PRESENT: dry, intact, warm. ABSENT: cyanosis, rash Results Laboratory Results: 05/20/20 04:38 05/20/20 07:22 05/19/20 20:00 Clean Catch Midstream Urine Culture - Final NO GROWTH 2 DAYS Impressions: Abdomen/Pelvis CT 05/15/20 09:26 IMPRESSION: Findings as detailed above consistent with a high-grade small bowel obstruction. The point of transition is located in the mid abdomen (image 26 of series 601). There is free fluid in the right perihepatic space, right pericolic gutter and in the cul de sac. There is no free intraperitoneal gas, pneumatosis or portal venous gas. Chest X-Ray 05/19/20 00:00 IMPRESSION: 1. Interval development of small bilateral pleural effusions with bibasilar airspace opacities, may be secondary to atelectasis or pneumonia. 2. Interval removal of the enteric tube. Gaseous distension with air-fluid levels at the visualized small bowel loops at the upper abdomen, may be seconda ry to ileus versus small bowel obstruction. Venous Doppler Study 05/19/20 00:00 IMPRESSION: No DVT is identified. Assessment and Plan - Diagnosis (1) Post-op pneumonia Is this a current diagnosis for this admission?: Yes Plan: - POD 6 laparotomy for SOB 2/2 internal hernia, cholcystectomy - CXR showed small bilateral pleural effusion and bibasilar consolidations - Blood cultures have no growth at 24 hours. - No sputum culture becasue patient is not really producing phlegm - negative DVT on US Patient was empirically placed on vanc and zosyn to cover for HAP. However,Leukocytosis is trending down, lung sounds clear, asymptomatic per patient, and maintaining oxygen saturations on room air. No history of MRSA. We will discontinue vancomycin and transition to p.o. Augmentin in anticipation of possible discharge in the immediate future. Start Mucinex twice daily. Continue scheduled and as needed nebulizer treatments. incentive spirometry PT/OT for ambulation (2) Diabetes mellitus type 2 in obese Is this a current diagnosis for this admission?: Yes Plan: - on metformin at home. will hold during admission - SSI - monitor accuchecks (3) Small intestine obstruction Is this a current diagnosis for this admission?: Yes Plan: - post op day 5 ex.lap with reduction of hernia internally - Diet advanced per surgery. - management per surgery (4) Essential (primary) hypertension Is this a current diagnosis for this admission?: Yes Plan: - current BP 149/74 - Continue home dose Losartan/HCTZ abd amlodipinee - Currently on hydralazine PRN for high blood pressure - continue to monitor (5) Hyperlipidemia Qualifiers: Hyperlipidemia type: unspecified Qualified Code(s): E78.5 - Hyperlipidemia, unspecified Is this a current diagnosis for this admission?: Yes Plan: - on lipitor (6) Obesity (BMI 30-39.9) Is this a current diagnosis for this admission?: Yes Plan: advised lifestyle modification - Time Time Spent with patient: 25-34 minutes Medications reviewed and adjusted accordingly: Yes Anticipated Discharge Disposition: Home, Self Care Anticipated Discharge Timeframe: within 24 hours - pending surgical service; cl eared for discharge from medicine's perspective. Will continue to follow.
[2020-05-21] MEDS: AMOXICILLIN TR/POT CLAVULANATE 500-125 MG TAB PO SCH (22:37)
[2020-05-22] MEDS: ALBUTEROL SULFATE 0.083% NEB 2.5 MG/3 ML AMPUL NEB SCH ×3 (02:07→13:29)
[2020-05-22 05:18] LABS: HEMATOCRIT 27.1 % (36.0-47.0); HEMOGLOBIN 9.1 g/dL (12.0-15.5); MEAN CORPUSCULAR HEMOGLOBIN 29.9 pg (27.0-33.4); MEAN CORPUSCULAR HGB CONC 33.6 g/dL (32.0-36.0); MEAN CORPUSCULAR VOLUME 89 fl (80-97); PLATELET COUNT 267 10^3/uL (150-450); RED BLOOD COUNT 3.04 10^6/uL (3.72-5.28); RED CELL DISTRIBUTION WIDTH 13.6 % (11.5-14.0); WHITE BLOOD COUNT 10.8 10^3/uL (4.0-10.5)
[2020-05-22 05:40] LABS: ANION GAP 7 (5-19); BLOOD UREA NITROGEN 5 mg/dL (7-20); CALCIUM 9.1 mg/dL (8.4-10.2); CARBON DIOXIDE 33 mmol/L (22-30); CHLORIDE 98 mmol/L (98-107); GLUCOSE 123 mg/dL (75-110); POTASSIUM 3.5 mmol/L (3.6-5.0)
[2020-05-22] MEDS: AMOXICILLIN TR/POT CLAVULANATE 500-125 MG TAB PO SCH ×2 (05:51→14:37)
[2020-05-22] MEDS: INSULIN LISPRO 100 UNIT/ML 3 ML VIAL SUBCUT SCH ×3 (08:19→17:55)
[2020-05-22] MEDS ORDERED: FUROSEMIDE INJ/PF 20 MG/2 ML SDV IV ONE (09:30)
[2020-05-22] MEDS: AMLODIPINE BESYLATE 10 MG TABLET PO SCH (09:33)
[2020-05-22] MEDS ORDERED: FUROSEMIDE 20 MG TABLET PO ONE (09:33)
[2020-05-22] MEDS: FAMOTIDINE 20 MG TABLET PO SCH (09:33)
[2020-05-22] MEDS: HYDROCHLOROTHIAZIDE 12.5 MG TABLET PO SCH (09:34)
[2020-05-22] MEDS: LISINOPRIL 10 MG TABLET PO SCH (09:35)
[2020-05-22] MEDS: GUAIFENESIN 600 MG TABLET.SA PO SCH (09:36)
[2020-05-22] MEDS: ENOXAPARIN SODIUM INJ 40 MG/0.4 ML DISP.SYRIN SUBCUT SCH (09:36)
--- NOTE | 2020-05-22 15:08 | PDOC PROGRESS REPORT ---
Subjective Progress Note for:: 05/22/20 Subjective:: Patient is feeling well. She has not required O2, even with ambulation, for over 2 days. Reason For Visit: CONSULT for possible pneumonia Physical Exam Vital Signs: Temp Pulse Resp BP Pulse Ox 99.0 F 90 16 123/64 96 05/22/20 11:17 05/22/20 13:29 05/22/20 13:29 05/22/20 11:17 05/22/20 13:29 Intake & Output 05/21/20 05/22/20 05/23/20 06:59 06:59 06:59 Intake Total 2009 800 Output Total 3100 Balance -1090 800 Weight 103.1 kg 99.5 kg General appearance: PRESENT: no acute distress Respiratory exam: PRESENT: clear to auscultation heidi, unlabored. ABSENT: accessory muscle use, chest wall tenderness, crackles, rales, rhonchi Cardiovascular exam: PRESENT: RRR Results Laboratory Results: 05/22/20 04:21 05/22/20 04:21 05/22/20 05/22/20 04:21 04:21 WBC 10.8 H RBC 3.04 L Hgb 9.1 L Hct 27.1 L MCV 89 MCH 29.9 MCHC 33.6 RDW 13.6 Plt Count 267 Sodium 138.2 Potassium 3.5 L Chloride 98 Carbon Dioxide 33 H Anion Gap 7 BUN 5 L Creatinine 0.57 Est GFR ( Amer) > 60 Glucose 123 H Calcium 9.1 05/19/20 20:00 Clean Catch Midstream Urine Culture - Final NO GROWTH 2 DAYS Impressions: Abdomen/Pelvis CT 05/15/20 09:26 IMPRESSION: Findings as detailed above consistent with a high-grade small bowel obstruction. The point of transition is located in the mid abdomen (image 26 of series 601). There is free fluid in the right perihepatic space, right pericolic gutter and in the cul de sac. There is no free intraperitoneal gas, pneumatosis or portal venous gas. Chest X-Ray 05/19/20 00:00 IMPRESSION: 1. Interval development of small bilateral pleural effusions with bibasilar airspace opacities, may be secondary to atelectasis or pneumonia. 2. Interval removal of the enteric tube. Gaseous distension with air-fluid levels at the visualized small bowel loops at the upper abdomen, may be secondary to ileus versus small bowel obstruction. Venous Doppler Study 05/19/20 00:00 IMPRESSION: No DVT is identified. Assessment and Plan - Plan Summary Summary: Questionable Post-operative Pneumonia - CXR showed small bilateral pleural effusion and bibasilar consolidations - Blood cultures have no growth at 24 hours. - No sputum culture because patient is not producing phlegm - negative DVT on US - Patient was empirically placed on vanc and zosyn on 05/20 to cover for HAP. However, leukocytosis is trending down, lung sounds clear, asymptomatic patient, and maintaining oxygen saturations on room air. Continue Augmentin in anticipation of possible discharge today (will need 5 days of total therapy from 05/20 to 05/24). Hospitalist Service will sign off. Thank you for this consult. - Time Time Spent with patient: 15-24 minutes Anticipated Discharge Disposition: Home, Self Care Anticipated Discharge Timeframe: within 24 hours
--- NOTE | 2020-05-22 16:54 | PDOC PROGRESS REPORT ---
Subjective Progress Note for:: 05/22/20 Subjective:: comfortable Reason For Visit: SMALL BOWEL OBSTRUCTION Physical Exam Vital Signs: Temp Pulse Resp BP Pulse Ox 99.6 F 90 24 H 121/61 92 05/22/20 15:12 05/22/20 15:12 05/22/20 15:12 05/22/20 15:12 05/22/20 15:12 Intake & Output 05/21/20 05/22/20 05/23/20 06:59 06:59 06:59 Intake Total 2009 800 Output Total 3100 Balance -1090 800 Weight 103.1 kg 99.5 kg General appearance: PRESENT: no acute distress GI/Abdominal exam: PRESENT: soft, other - incision c/d/i Results Laboratory Results: 05/22/20 04:21 05/22/20 04:21 05/22/20 05/22/20 04:21 04:21 WBC 10.8 H RBC 3.04 L Hgb 9.1 L Hct 27.1 L MCV 89 MCH 29.9 MCHC 33.6 RDW 13.6 Plt Count 267 Sodium 138.2 Potassium 3.5 L Chloride 98 Carbon Dioxide 33 H Anion Gap 7 BUN 5 L Creatinine 0.57 Est GFR ( Amer) > 60 Glucose 123 H Calcium 9.1 Impressions: Abdomen/Pelvis CT 05/15/20 09:26 IMPRESSION: Findings as detailed above consistent with a high-grade small bowel obstruction. The point of transition is located in the mid abdomen (image 26 of series 601). There is free fluid in the right perihepatic space, right pericolic gutter and in the cul de sac. There is no free intraperitoneal gas, pneumatosis or portal venous gas. Chest X-Ray 05/19/20 00:00 IMPRESSION: 1. Interval development of small bilateral pleural effusions with bibasilar airspace opacities, may be secondary to atelectasis or pneumonia. 2. Interval removal of the enteric tube. Gaseous distension with air-fluid levels at the visualized small bowel loops at the upper abdomen, may be secondary to ileus versus small bowel obstruction. Venous Doppler Study 05/19/20 00:00 IMPRESSION: No DVT is identified. Assessment & Plan - Diagnosis (1) Diabetes mellitus type 2 in obese Is this a current diagnosis for this admission?: Yes (2) Small intestine obstruction Is this a current diagnosis for this admission?: Yes - Time Anticipated Discharge Disposition: Home, Self Care Anticipated Discharge Timeframe: within 24 hours - Plan Summary Plan Summary: / Postop after exploratory laparotomy for SBO/cholecystecto,my Postop pneumonia on Augmentin Doing well PE inremarkable P/ Home today f/u w/ [facility] in 10 days Augmentin 875 mg po BOD x 5 days Shower only regular diet No wound care needed resume home meds Tylenol for pain F/u with your PCP in 1-2 weeks
--- NOTE | 2020-05-22 17:00 | PDOC DISCHARGE SUMMARY ---
General - Admit/Disc Date/PCP Admission Date/Primary Care Provider: 05/15/20 14:18 EDITH Torres PEÑA, DRESS CAP MAKER-C Discharge Date: 05/22/20 - Discharge Diagnosis Final Diagnosis: Small bowel obstruction, postoperative pneumonia - Assessment Summary: Patient admitted for SBO, underwent laparotomy, repair of small bowel internal hernia, cholecystectomy. Postoperatively, she developed leukocytosis and diagnosed with postop pneumonia. She improved and discharged to home on 05/22/2020. f/u w/ [facility] in 10 days Augmentin 875 mg po BOD x 5 days Shower only regular diet No wound care needed resume home meds Tylenol for pain F/u with your PCP in 1-2 weeks Questionable Post-operative Pneumonia - CXR showed small bilateral pleural effusion and bibasilar consolidations - Blood cultures have no growth at 24 hours. - No sputum culture because patient is not producing phlegm - negative DVT on US - Patient was empirically placed on vanc and zosyn on 05/20 to cover for HAP. However, leukocytosis is trending down, lung sounds clear, asymptomatic patient, and maintaining oxygen saturations on room air. Continue Augmentin in anticipation of possible discharge today (will need 5 days of total therapy from 05/20 to 05/24). Hospitalist Service will sign off. Thank you for this consult. - Additional Information Resuscitation Status: Full Code Discharge Diet: As Tolerated Referrals: AMANDA JEFFERSON MD [ACTIVE STAFF] - 06/03/20 10:45 am Prescriptions: Amoxicillin/Potassium Clav [Augmentin 875-125 Tablet] 1 tab PO Q12 #10 tablet Home Medications: Amlodipine Besylate [Norvasc 10 mg Tablet] 10 mg PO DAILY #30 tablet 04/18/18 Atorvastatin Calcium 20 mg PO DAILY #30 tablet 04/18/18 Lisinopril/Hydrochlorothiazide [Zestoretic 20-12.5 mg Tablet] 1 each PO DAILY #30 tablet 04/18/18 Metformin HCl [Metformin HCl ER] 1,000 mg PO DAILY 05/15/20 Amoxicillin/Potassium Clav [Augmentin 875-125 Tablet] 1 tab PO Q12 #10 tablet 05/22/20 History of Present Illiness History of Present Illness: BABS REGAN is a 64 year old female Physical Exam Vital Signs: Temp Pulse Resp BP Pulse Ox 99.6 F 90 24 H 121/61 92 05/22/20 15:12 05/22/20 15:12 05/22/20 15:12 05/22/20 15:12 05/22/20 15:12 Intake & Output 05/21/20 05/22/20 05/23/20 06:59 06:59 06:59 Intake Total 2009 800 Output Total 3100 Balance -1090 800 Weight 103.1 kg 99.5 kg Results Laboratory Results: WBC 10.8 10^3/uL (4.0-10.5) H 05/22/20 04:21 RBC 3.04 10^6/uL (3.72-5.28) L 05/22/20 04:21 Hgb 9.1 g/dL (12.0-15.5) L 05/22/20 04:21 Hct 27.1 % (36.0-47.0) L 05/22/20 04:21 MCV 89 fl (80-97) 05/22/20 04:21 MCH 29.9 pg (27.0-33.4) 05/22/20 04:21 MCHC 33.6 g/dL (32.0-36.0) 05/22/20 04:21 RDW 13.6 % (11.5-14.0) 05/22/20 04:21 Plt Count 267 10^3/uL (150-450) 05/22/20 04:21 Lymph % (Auto) Not Reportable 05/20/20 04:38 Winston % (Auto) Not Reportable 05/20/20 04:38 Eos % (Auto) Not Reportable 05/20/20 04:38 Baso % (Auto) Not Reportable 05/20/20 04:38 Absolute Neuts (auto) Not Reportable 05/20/20 04:38 Absolute Lymphs (auto) Not Reportable 05/20/20 04:38 Absolute Monos (auto) Not Reportable 05/20/20 04:38 Absolute Eos (auto) Not Reportable 05/20/20 04:38 Absolute Basos (auto) Not Reportable 05/20/20 04:38 Total Counted 100 05/20/20 04:38 Seg Neutrophils % Not Reportable 05/20/20 04:38 Seg Neuts % (Manual) 77 % (42-78) 05/20/20 04:38 Band Neutrophils % 2 % (3-5) L 05/17/20 05:59 Lymphocytes % (Manual) 7 % (13-45) L 05/20/20 04:38 Atypical Lymphs % 1 % (0) 05/17/20 05:59 Monocytes % (Manual) 15 % (3-13) H 05/20/20 04:38 Eosinophils % (Manual) 1 % (0-6) 05/20/20 04:38 Basophils % (Manual) 0 % (0-2) 05/20/20 04:38 Myelocytes % 1 % (0) H 05/17/20 05:59 Abs Neuts (Manual) 8.9 10^3/uL (1.7-8.2) H 05/20/20 04:38 Abs Lymphs (Manual) 0.8 10^3/uL (0.5-4.7) 05/20/20 04:38 Abs Monocytes (Manual) 1.7 10^3/uL (0.1-1.4) H 05/20/20 04:38 Absolute Eos (Manual) 0.1 10^3/uL (0.0-0.6) 05/20/20 04:38 Abs Basophils (Manual) 0.0 10^3/uL (0.0-0.2) 05/20/20 04:38 Toxic Vacuolation PRESENT 05/20/20 04:38 Platelet Comment ADEQUATE 05/20/20 04:38 Ovalocytes SLIGHT 05/19/20 04:26 Annette Cells SLIGHT 05/19/20 04:26 Schistocytes SLIGHT 05/19/20 04:26 RBC Morph Comment NORMO-CYTIC/CHROMIC 05/20/20 04:38 Sodium 138.2 mmol/L (137-145) 05/22/20 04:21 Potassium 3.5 mmol/L (3.6-5.0) L 05/22/20 04:21 Chloride 98 mmol/L (98-107) 05/22/20 04:21 Carbon Dioxide 33 mmol/L (22-30) H 05/22/20 04:21 Anion Gap 7 (5-19) 05/22/20 04:21 BUN 5 mg/dL (7-20) L 05/22/20 04:21 Creatinine 0.57 mg/dL (0.52-1.25) 05/22/20 04:21 Est GFR ( Amer) > 60 (>60) 05/22/20 04:21 Est GFR (Non-Af Amer) Cancelled 05/20/20 04:38 Est GFR (MDRD) Non-Af > 60 (>60) 05/22/20 04:21 Glucose 123 mg/dL (75-110) H 05/22/20 04:21 POC Glucose 212 mg/dL (70-110) H 05/22/20 15:48 Calcium 9.1 mg/dL (8.4-10.2) 05/22/20 04:21 Total Bilirubin 1.5 mg/dL (0.2-1.3) H 05/16/20 03:42 Direct Bilirubin 0.3 mg/dL (0.0-0.4) 05/16/20 03:42 Neonat Total Bilirubin Not Reportable 05/16/20 03:42 Neonat Direct Bilirubin Not Reportable 05/16/20 03:42 Neonat Indirect Bili Not Reportable 05/16/20 03:42 AST 24 U/L (14-36) 05/16/20 03:42 ALT 12 U/L (<35) 05/16/20 03:42 Alkaline Phosphatase 63 U/L (38-126) 05/16/20 03:42 Total Protein 6.3 g/dL (6.3-8.2) 05/16/20 03:42 Albumin 3.4 g/dL (3.5-5.0) L 05/16/20 03:42 Lipase 20.5 U/L (23-300) L 05/15/20 08:51 EGFR Cancelled 05/20/20 04:38 Urine Color YELLOW 05/19/20 20:00 Urine Appearance CLEAR 05/19/20 20:00 Urine pH 7.0 (5.0-9.0) 05/19/20 20:00 Ur Specific Docena 1.012 05/19/20 20:00 Urine Protein 30 mg/dL (NEGATIVE) H 05/19/20 20:00 Urine Glucose (UA) NEGATIVE mg/dL (NEGATIVE) 05/19/20 20:00 Urine Ketones 20 mg/dL (NEGATIVE) H 05/19/20 20:00 Urine Blood MODERATE (NEGATIVE) H 05/19/20 20:00 Urine Nitrite NEGATIVE (NEGATIVE) 05/15/20 09:53 Urine Nitrite (Reflex) NEGATIVE (NEGATIVE) 05/19/20 20:00 Urine Bilirubin NEGATIVE (NEGATIVE) 05/19/20 20:00 Urine Urobilinogen NEGATIVE mg/dL (<2.0) 05/19/20 20:00 Ur Leukocyte Esterase NEGATIVE (NEGATIVE) 05/15/20 09:53 Leukocyte Esterase Rfl TRACE (NEGATIVE) H 05/19/20 20:00 Urine WBC (Auto) 2 /HPF 05/15/20 09:53 Urine RBC (Auto) 21 /HPF 05/19/20 20:00 U Hyaline Cast (Auto) 1 /LPF 05/19/20 20:00 Urine WBC (Reflex) 4 /HPF 05/19/20 20:00 Squamous Epi Cells Auto <1 /HPF 05/19/20 20:00 Urine Mucus (Auto) RARE /LPF 05/19/20 20:00 Urine Ascorbic Acid NEGATIVE (NEGATIVE) 05/19/20 20:00 SARS-CoV-2 (PCR) NEGATIVE (NEGATIVE) 05/15/20 12:55 Slides for Path Review PATHOLOGIST REVIEWED 05/17/20 05:59 Impressions: Chest X-Ray 05/15/20 00:00 IMPRESSION: 1. No evidence of acute cardiopulmonary abnormality. 2. Enteric tube tip and proximal port projects subdiaphragmatically within the left upper quadrant. Abdomen/Pelvis CT 05/15/20 09:26 IMPRESSION: Findings as detailed above consistent with a high-grade small bowel obstruction. The point of transition is located in the mid abdomen (image 26 of series 601). There is free fluid in the right perihepatic space, right pericolic gutter and in the cul de sac. There is no free intraperitoneal gas, pneumatosis or portal venous gas. Chest X-Ray 05/19/20 00:00 IMPRESSION: 1. Interval development of small bilateral pleural effusions with bibasilar airspace opacities, may be secondary to atelectasis or pneumonia. 2. Interval removal of the enteric tube. Gaseous distension with air-fluid levels at the visualized small bowel loops at the upper abdomen, may be secondary to ileus versus small bowel obstruction. Venous Doppler Study 05/19/20 00:00 IMPRESSION: No DVT is identified.
[2020-05-22 17:45] VITALS: BP 148/80
== END 2020-05-22 19:10 | disposition home or self-care (01) | DRG 345 ==
LOC: ER 08:27 → EH 14:18 → 4N 22:16
PROVIDERS: ATTEND Surgery
PROC: 0D980ZZ Drainage of Small Intestine, Open Approach (ICD-10-PCS; 2020-05-15)
PROC: 0DQV0ZZ Repair Mesentery, Open Approach (ICD-10-PCS; principal; 2020-05-15 18:15)
DX: K45.0 Other specified abdominal hernia with obstruction, without gangrene (principal); J95.89 Other postprocedural complications and disorders of respiratory system, not elsewhere classified; I10 Essential (primary) hypertension; E78.5 Hyperlipidemia, unspecified; E66.9 Obesity, unspecified; I25.2 Old myocardial infarction; Z91.013 Allergy to seafood; Z91.018 Allergy to other foods; Z91.048 Other nonmedicinal substance allergy status; Z79.899 Other long term (current) drug therapy; Z53.31 Laparoscopic surgical procedure converted to open procedure; Z82.49 Family history of ischemic heart disease and other diseases of the circulatory system; Z82.3 Family history of stroke; Z79.84 Long term (current) use of oral hypoglycemic drugs; E11.9 Type 2 diabetes mellitus without complications; Z20.828 Contact with and (suspected) exposure to other viral communicable diseases
CPT/HCPCS: 36415; 71045; 71046; 74177; 790; 80048; 80053; 81001; 82962; 83690; 85025; 85027; 87040; 87086; 87635; 93005; 93010; 93970; 94640; 94667; 94668; 94799; 96361; 96374; 99140; 99285; C1758; C9803; J0131; J0330; J0360; J0694; J1100; J1650; J1815; J1885; J2250; J2270; J2405; J2543; J2704; J2710; J3010; J3370; J3480; J3490; J7030; J7050; J7060; J7613; S0028

== ENCOUNTER 2020-05-25 12:35 | Emergency (ER) | payer SELFPAY ==
[2020-05-25 13:27] LABS: HEMATOCRIT 29.4 % (36.0-47.0); HEMOGLOBIN 9.7 g/dL (12.0-15.5); MEAN CORPUSCULAR HEMOGLOBIN 29.6 pg (27.0-33.4); MEAN CORPUSCULAR HGB CONC 33.1 g/dL (32.0-36.0); MEAN CORPUSCULAR VOLUME 90 fl (80-97); PLATELET COUNT 412 10^3/uL (150-450); RED BLOOD COUNT 3.29 10^6/uL (3.72-5.28); RED CELL DISTRIBUTION WIDTH 14.1 % (11.5-14.0); WHITE BLOOD COUNT 14.5 10^3/uL (4.0-10.5)
[2020-05-25 13:38] LABS: APPEARANCE,URINE CLEAR; BILIRUBIN,URINE NEGATIVE (NEGATIVE); COLOR,URINE YELLOW; GLUCOSE, URINE NEGATIVE (NEGATIVE); KETONES,URINE NEGATIVE (NEGATIVE); LEUKOCYTE ESTERASE,URINE TRACE (NEGATIVE); NITRITE,URINE NEGATIVE (NEGATIVE); PROTEIN,URINE NEGATIVE (NEGATIVE); URINE SPECIFIC GRAVITY 1.004
--- NOTE | 2020-05-25 13:44 | RADIOLOGY REPORT (SQ) ---
EXAM DESCRIPTION: CHEST SINGLE VIEW IMAGES COMPLETED DATE/TIME: 05/25/2020 1:24 pm REASON FOR STUDY: SOB COMPARISON: Chest radiograph 05/19/2020 NUMBER OF VIEWS: One view. TECHNIQUE: Single frontal radiographic view of the chest acquired. LIMITATIONS: None. FINDINGS: LUNGS AND PLEURA: There is similar linear opacity at the bilateral lung bases with small b ilateral pleural effusions. The remainder the lungs are clear. MEDIASTINUM AND HILAR STRUCTURES: No masses. Contour normal. HEART AND VASCULAR STRUCTURES: Heart normal in size. Normal vasculature. BONES: No acute findings. HARDWARE: None in the chest. OTHER: No other significant finding. IMPRESSION: Similar small bilateral pleural effusions with likely bibasilar atelectasis, though a garcia perimposed pneumonia could appear similar. Recommend continued radiographic follow-up. TECHNICAL DOCUMENTATION: JOB ID: [id number] 2010 [employer]- All Rights Reserved Reading location - IP/workstation name: [email or web address]
[2020-05-25 13:46] LABS: ALKALINE PHOSPHATASE 97 U/L (38-126); ANION GAP 12 (5-19); ASPARTATE AMINO TRANSFERASE 82 U/L (14-36); BILIRUBIN,DIRECT 0.4 mg/dL (0.0-0.4); BILIRUBIN,TOTAL 1.3 mg/dL (0.2-1.3); BLOOD UREA NITROGEN 5 mg/dL (7-20); CALCIUM 9.2 mg/dL (8.4-10.2); CARBON DIOXIDE 33 mmol/L (22-30); CHLORIDE 95 mmol/L (98-107); GLUCOSE 144 mg/dL (75-110); POTASSIUM 3.5 mmol/L (3.6-5.0); TOTAL PROTEIN 7.8 g/dL (6.3-8.2)
[2020-05-25 13:52] LABS: ABSOLUTE LYMPHOCYTES# (MANUAL) 1.7 10^3/uL (0.5-4.7); ABSOLUTE MONOCYTES # (MANUAL) 2.3 10^3/uL (0.1-1.4); BAND NEUTROPHILS % (MANUAL) 1 % (3-5); BASOPHILS % (MANUAL) 0 % (0-2); EOSINOPHILS % (MANUAL) 0 % (0-6); LYMPHOCYTES % (MANUAL) 12 % (13-45); METAMYELOCYTES % (MANUAL) 1 % (0-1); MONOCYTES % (MANUAL) 16 % (3-13); SEGMENTED NEUTROPHILS % (MAN) 70 % (42-78); TOTAL CELLS COUNTED 100; TOXIC VACUOLATION PRESENT
[2020-05-25 13:53] LABS: ANISOCYTOSIS SLIGHT; PLATELET COMMENT ADEQUATE
[2020-05-25] MEDS ORDERED: NORMAL SALINE 1000 ML 1,000 ML IV ONE (14:35)
--- NOTE | 2020-05-25 17:17 | RADIOLOGY REPORT (SQ) ---
EXAM DESCRIPTION: CTA CHEST IMAGES COMPLETED DATE/TIME: 05/25/2020 4:53 pm REASON FOR STUDY: shortness of breath COMPARISON: None. TECHNIQUE: CT scan of the chest performed using helical scanning technique with dynamic intravenous contrast injection. Images reviewed with lung, soft tissue and bone windows. Reconstructed coronal and sagittal MPR images reviewed. Additional 3 dimensional post-processing performed to develop Maximal Intensity Projection images (SD P). All images stored on PACS. All CT scanners at this facility use dose modulation, iterative reconstruction, and/or weight based d osing when appropriate to reduce radiation dose to as low as reasonably achievable (ALARA). [facility]: Dose Right [facility]: CareDose [facility]: Dose Right [facility]: Teradose 4D [facility]: JEDI MIND CONTRAST TYPE AND DOSE: contrast/concentration: Isovue 350.00 mmol/ml; Total Contrast Delivered: 140 .0 ml; Total Saline Delivered: 157.0 ml Contrast bolus optimized for the pulmonary arteries. Not diagnostic for the aorta. RENAL FUNCTION: Creatinine 0.64 RADIATION DOSE: CT Rad equipment meets quality standard of care and radiation dose reduction techniq ues were employed. CTDIvol: 6.6 - 24.9 mGy. DLP: 856 mGy-cm. . LIMITATIONS: None. FINDINGS: LUNGS AND PLEURA: There are tiny bilateral pleural effusions with small regions of consoli dation at the posterior lung bases. There is also a linear consolidation in the right middle lobe, f avored to represent atelectasis. AORTA AND GREAT VESSELS: No aneurysm. Contrast bolus not optimized for the aorta. HEART: No pericardial effusion. No significant coronary artery calcifications. PULMONARY ARTERIES: No emboli visualized in the main pulmonary arteries or the segmental branches. HILAR AND MEDIASTINAL STRUCTURES: No identified masses or abnormal nodes. HARDWARE: None in the chest. UPPER ABDOMEN: No significant findings. Limited exam. THYROID AND OTHER SOFT TISSUES: No masses. No adenopathy. BONES: Moderate degenerative changes in the midthoracic spine are noted. No aggressive osseous lesio ns are seen. 3D MIPS: Confirm above findings. OTHER: No other significant finding. IMPRESSION: No pulmonary embolus. Tiny bilateral pleural effusions with bibasilar consolidation which may represent atelectasis or infe ction. COMMENT: Quality ID # [id number]: Final reports with documentation of one or more dose reduction techniques (e.g., Automated exposure control, adjustment of the mA and/or kV according to patient size, use of iterative reconstruction technique) TECHNICAL DOCUMENTATION: JOB ID: [id number] 2010 [employer]- All Rights Reserved Reading location - IP/workstation name: [email or web address]
--- NOTE | 2020-05-25 17:53 | ER Document Report ---
ED Respiratory Problem - General Chief Complaint: Shortness Of Breath Stated Complaint: DIFFICULTY BREATHING Time Seen by Provider: 05/25/20 13:07 Primary Care Provider: EDITH PEÑA FNP-C [Primary Care Provider] - Follow up in 1 week Notes: Patient is a 64-year-old female presents emergency department with a chief complaint of shortness of breath. Patient states that her shortness of breath started at 11:00 this morning. She denies any chest pain. Patient states that the place that she stays does not have air conditioning. Patient was also recently admitted in the hospital for a bowel obstruction and postop pneumonia. She was discharged 3 days ago. She was started on Augmentin and her first dose was yesterday. She denies any fevers, body aches, or chills. TRAVEL OUTSIDE OF THE [place] IN LAST 30 DAYS: No - Related Data Allergies/Adverse Reactions: iodine [Iodine] Allergy (Verified 05/15/20 09:45) pear Allergy (Verified 05/15/20 09:45) shellfish derived Allergy (Verified 05/15/20 09:45) Past Medical History - General Information source: Patient - Social History Smoking Status: Never Smoker Chew tobacco use (# tins/day): No Frequency of alcohol use: None Drug Abuse: None Family History: CVA, Hypertension. denies: CAD, DM, Thyroid Disfunction - Past Medical History Cardiac Medical History: Reports: Hx Coronary Artery Disease, Hx Heart Attack, Hx Hypercholesterolemia, Hx Hypertension Denies: Hx Atrial Fibrillation Pulmonary Medical History: Reports: Hx Pneumonia Denies: Hx Asthma, Hx COPD Neurological Medical History: Denies: Hx Seizures Endocrine Medical History: Reports: Hx Diabetes Mellitus Type 2. Denies: Hx Diabetes Mellitus Type 1, Hx Hyperthyroidism, Hx Hypothyroidism Renal/ Medical History: Denies: Hx Kidney Stones, Hx Peritoneal Dialysis GI Medical History: Denies: Hx Cirrhosis, Hx Hepatitis Musculoskeletal Medical History: Denies Hx Arthritis, Denies Hx Fibromyalgia Skin Medical History: Denies Hx Eczema, Denies Hx Psoriasis Psychiatric Medical History: Denies: Hx Depression Infectious Medical History: Denies: Hx Hepatitis - Immunizations Hx Diphtheria, Pertussis, Tetanus Vaccination: Yes Hx Pneumococcal Vaccination: 09/28/13 Review of Systems - Review of Systems Notes: REVIEW OF SYSTEMS: CONSTITUTIONAL : Denies recent illness. Denies recent unintentional weight loss. Denies fever, chills, or sweats. EENT: Denies eye, ear, throat, or mouth pain, discharge, or symptoms. Denies nasal or sinus congestion. CARDIOVASCULAR: Denies chest pain. RESPIRATORY: See HPI. GASTROINTESTINAL: Denies nausea, vomiting, and diarrhea. Denies abdominal pain. Denies constipation. GENITOURINARY: Denies difficulty urinating, burning, blood in urine, urgency or frequency. MUSCULOSKELETAL: Denies neck and back pain. Denies joint pain or swelling. SKIN: Denies rash, itchiness, or lesions HEMATOLOGIC : Denies easy bruising or bleeding. LYMPHATIC: Denies swollen, painful, enlarged glands. NEUROLOGICAL: Denies no numbness or tingling denies weakness. Denies headache. Denies altered mental status. Denies alteration in speech. PSYCHIATRIC: Denies stress, anxiety, alteration in sleep patterns, or depression. All other systems reviewed and negative. Physical Exam - Vital signs Vitals: Temp Pulse Resp BP Pulse Ox 99.1 F 88 20 126/71 H 97 05/25/20 12:47 05/25/20 12:47 05/25/20 12:47 05/25/20 12:47 05/25/20 12:47 - Notes Notes: PHYSICAL EXAMINATION: GENERAL: Appears well, healthy, well-nourished, no acute distress. HEAD: Normocephalic, atraumatic. EYES: PERRL, conjunctiva normal, all extraocular movements intact, sclera non icteric ENT: Moist mucous membranes. NECK: Supple, no noticeable swelling, redness, rash. Normal range of motion. LUNGS: Diminished breath sounds in bilateral bases CARDIOVASCULAR: S1-S2, regular rate, regular rhythm. Radial pulses 2+, normal. ABDOMEN: Normoactive bowel sounds. Soft, nontender, no guarding, no rebound tenderness, and no masses palpated. Midline surgical incision healing well. No erythema noted. Left lateral abdominal incision site healing well also. EXTREMITIES: Normal strength and range of motion, no pitting or edema. No cyanosis. NEUROLOGICAL: Moves all extremities upon command. Strength 5/5 in all extremities. PSYCH: Normal mood, normal affect. SKIN: Warm, dry. No rash, lesions, ulcerations noted. Normal skin turgor. Course - Re-evaluation Re-evalutation: 05/25/20 16:20 Hematology shows a leukocytosis of 14,500. Patient is also slightly anemicPatient is chronically anemic and her hemoglobin is actually higher than 3 days ago. Leukocytosis may also be from recent abdominal surgery. D-dimer is elevated at 7.19, which is to be expected, she did have recent surgery. Will c heck for a pulmonary emboli with a CTA of the chest. Chemistries are also unchanged from 3 days ago. Troponin is unremarkable. Patient adamantly denies any chest pain. 05/25/20 18:20 Patient ambulated and her O2 sat was 92-96 on room air. At this point, I will have the patient continue her Augmentin for her pneumonia noted on her CT. She is in agreement with this plan. Was at bedside and they recommended that the patient stay in a place that has air conditioning. The daughter states that the only place that has air conditioning is a hotel room. I asked the daughter if there was any other place the patient could stay, other than the hotel room and the daughter stated that there was no other place. We will put in a ed case manager consult for follow-up. Advised that the patient follow-up with her primary care provider. Follow-up precautions were given. Verbal discharge instructions were given to the patient. They verbalized understanding. They are stable for discharge. - Vital Signs Vital signs: Temp Pulse Resp BP Pulse Ox 99.7 F 88 28 H 151/81 H 91 L 05/25/20 19:08 05/25/20 12:47 05/25/20 19:01 05/25/20 19:00 05/25/20 19:01 - Laboratory Result Diagrams: 05/25/20 13:08 05/25/20 13:08 Laboratory results interpreted by me: 05/25/20 05/25/20 05/25/20 13:08 13:08 13:08 WBC 14.5 H RBC 3.29 L Hgb 9.7 L Hct 29.4 L RDW 14.1 H Band Neutrophils % 1 L Lymphocytes % (Manual) 12 L Monocytes % (Manual) 16 H Abs Neuts (Manual) 10.4 H Abs Monocytes (Manual) 2.3 H D-Dimer Potassium 3.5 L Chloride 95 L Carbon Dioxide 33 H BUN 5 L Glucose 144 H AST 82 H ALT 86 H Urine Urobilinogen 4.0 H Ur Leukocyte Esterase TRACE H 09/12/20 13:08 WBC RBC Hgb Hct RDW Band Neutrophils % Lymphocytes % (Manual) Monocytes % (Manual) Abs Neuts (Manual) Abs Monocytes (Manual) D-Dimer 7.19 H Potassium Chloride Carbon Dioxide BUN Glucose AST ALT Urine Urobilinogen Ur Leukocyte Esterase Discharge - Discharge Clinical Impression: Shortness of breath Pneumonia Qualifiers: Pneumonia type: due to unspecified organism Laterality: right Lung location: middle lobe of lung Qualified Code(s): J18.9 - Pneumonia, unspecified organism Condition: Stable Disposition: HOME, SELF-CARE Additional Instructions: You were seen today in the emergency department for shortness of breath. You still have pneumonia, which you are being treated for. Take your antibiotics as prescribed. Please make sure you stay in the air conditioned facility to help keep you cool. Drink plenty of fluids. Follow-up with your primary care provider in the next week in regards to this visit. Referrals: EDITH PEÑA WILDLIFE CONSERVATION PROFESSOR-C [Primary Care Provider] - Follow up in 1 week
[2020-05-25 19:09] VITALS: BP 151/81
--- NOTE | 2020-05-27 02:20 | EKG REPORT ---
SEVERITY:- OTHERWISE NORMAL ECG - SINUS RHYTHM BORDERLINE LEFT AXIS DEVIATION : Confirmed by: Maury Farrell MD 27-May-2020 02:19:34
== END 2020-05-25 19:08 | disposition home or self-care (01) ==
LOC: ER 12:35
DX: J18.9 Pneumonia, unspecified organism (principal); R06.02 Shortness of breath; I25.10 Atherosclerotic heart disease of native coronary artery without angina pectoris; E78.00 Pure hypercholesterolemia, unspecified; I10 Essential (primary) hypertension; E11.9 Type 2 diabetes mellitus without complications; I25.2 Old myocardial infarction
CPT/HCPCS: 93005; 99285; 96360; 36415; 87040; 85025; 80053; 81001; 84484; 85379; 71045; 71275; 93010; J7030

== ENCOUNTER 2020-05-30 20:24 | Emergency (ER) | payer SELFPAY ==
--- NOTE | 2020-05-30 20:52 | ER Document Report ---
ED Medical Screen (RME) - General Chief Complaint: Post Surgical Pain Stated Complaint: POST OP PROBLEM Time Seen by Provider: 05/30/20 20:35 Primary Care Provider: EDITH PEÑA FNP-C [Primary Care Provider] - Follow up as needed Mode of Arrival: Wheelchair Information source: Patient Notes: 64-year-old female presented to ED for complaint of her dressing being foul drainage and dirty drainage. She states she called Dr. Wilder who did a bowel surgery on May 15. She states that when she got discharged they changed outside dressing but did not change the inside dressing that the surgeon had changed into dressing once. She stated that this afternoon she noticed that there was a lot of drainage on the dressing and on her underwear and her pants. She states she called Dr. Wilder who did the surgery and he told her to come to the emergency room to get a dressing changed if she did not feel comfortable waiting till tomorrow. She states she was not comfortable with this drainage on her close so she came in to get a dressing change. When I remove the outer dressing there is a lot of brown drainage and there is a lot of fluid under the inner dressing. I have paged Dr. Oliveira who is on-call right now he is in surgery. He will call back to the [facility] area phone. I did tell the nurse in OR that he will need to look at this abdomen. I did tell her the name and who had done the surgery. She stated she would give him the message when he was finished with his surgery. I will order blood in urine on this patient at this time. I did put a dry ABD and the abdominal binder back over the dressing at this time. I have not secured the dressing except for with the abdominal binder. I did speak with Dr. Oliveira. He did tell me to remove the dressing. After the dressing was removed there was a lot of drainage to the area. I did inform him what the wound looks like. He stated please clean the wound and he will be down to see it. I did give this information to Gabrielle Silver KILN LOADER. I am going home at this time. Gabrielle has picked up the patient and she is now the provider. I have greeted and performed a rapid initial assessment of this patient. A comprehensive ED assessment and evaluation of the patient, analysis of test results and completion of medical decision making process will be conducted by an additional ED providers. TRAVEL OUTSIDE OF THE [place] IN LAST 30 DAYS: No - Related Data Allergies/Adverse Reactions: iodine [Iodine] Allergy (Verified 05/15/20 09:45) pear Allergy (Verified 05/15/20 09:45) shellfish derived Allergy (Verified 05/15/20 09:45) Past Medical History - Past Medical History Cardiac Medical History: Reports: Hx Coronary Artery Disease, Hx Heart Attack, Hx Hypercholesterolemia, Hx Hypertension Denies: Hx Atrial Fibrillation Pulmonary Medical History: Reports: Hx Pneumonia Denies: Hx Asthma, Hx COPD Neurological Medical History: Denies: Hx Seizures Endocrine Medical History: Reports: Hx Diabetes Mellitus Type 2. Denies: Hx Diabetes Mellitus Type 1, Hx Hyperthyroidism, Hx Hypothyroidism Renal/ Medical History: Denies: Hx Kidney Stones, Hx Peritoneal Dialysis GI Medical History: Denies: Hx Cirrhosis, Hx Hepatitis Musculoskeltal Medical History: Denies Hx Arthritis, Denies Hx Fibromyalgia Skin Medical History: Denies Hx Eczema, Denies Hx Psoriasis Psychiatric Medical History: Denies: Hx Depression Infectious Medical History: Denies: Hx Hepatitis - Immunizations Hx Diphtheria, Pertussis, Tetanus Vaccination: Yes Physical Exam - Vital signs Vitals: Temp Pulse Resp BP Pulse Ox 99.0 F 95 18 135/86 H 95 05/30/20 20:30 05/30/20 20:30 05/30/20 20:30 05/30/20 20:30 05/30/20 20:30 Course - Vital Signs Vital signs: Temp Pulse Resp BP Pulse Ox 99.0 F 95 18 135/86 H 95 05/30/20 20:30 05/30/20 20:30 05/30/20 20:30 05/30/20 20:30 05/30/20 20:30 - Laboratory Laboratory results interpreted by me: 05/30/20 21:32 Ur Leukocyte Esterase TRACE H Doctor's Discharge - Discharge Referrals: EDITH PEÑA, DELINQUENT TAX COLLECTION ASSISTANT-C [Primary Care Provider] - Follow up as needed
--- NOTE | 2020-05-30 21:28 | ER Document Report ---
ED Wound - General Chief Complaint: Wound Infection Stated Complaint: POST OP PROBLEM Time Seen by Provider: 05/30/20 20:35 Primary Care Provider: EDITH PEÑA FNP-C [Primary Care Provider] - Follow up as needed AMANDA WILDER MD [ACTIVE STAFF] - Follow up as needed Mode of Arrival: Wheelchair Information source: Patient Notes: Patient had laparotomy performed on 05/15/2020 with a hernia repair. Patient states that she noticed a brown drainage seeping from her dressing today. Patient had not previously had any abnormal drainage from her wound. Patient de nies any fever. Patient denies any nausea vomiting or diarrhea. Patient has been having normal bowel movements. Patient has an appointment to follow-up with her surgeon next week. TRAVEL OUTSIDE OF THE [place] IN LAST 30 DAYS: No - HPI Patient complains to provider of: Post surgical problem Occurred: This morning Onset/Duration: Persistent Quality of pain: Achy Pain Level: 1 Associated Symptoms: Drainage. denies: Swelling - Related Data Allergies/Adverse Reactions: iodine [Iodine] Allergy (Verified 05/15/20 09:45) pear Allergy (Verified 05/15/20 09:45) shellfish derived Allergy (Verified 05/15/20 09:45) Past Medical History - General Information source: Patient - Social History Smoking Status: Never Smoker Chew tobacco use (# tins/day): No Frequency of alcohol use: None Drug Abuse: None Lives with: Family Family History: CVA, Hypertension. denies: CAD, DM, Thyroid Disfunction - Past Medical History Cardiac Medical History: Reports: Hx Coronary Artery Disease, Hx Heart Attack, Hx Hypercholesterolemia, Hx Hypertension Denies: Hx Atrial Fibrillation Pulmonary Medical History: Reports: Hx Pneumonia Denies: Hx Asthma, Hx COPD Neurological Medical History: Denies: Hx Seizures Endocrine Medical History: Reports: Hx Diabetes Mellitus Type 2. Denies: Hx Diabetes Mellitus Type 1, Hx Hyperthyroidism, Hx Hypothyroidism Renal/ Medical History: Denies: Hx Kidney Stones, Hx Peritoneal Dialysis Musculoskeletal Medical History: Denies Hx Arthritis, Denies Hx Fibromyalgia Skin Medical History: Denies Hx Eczema, Denies Hx Psoriasis Psychiatric Medical History: Denies: Hx Depression Infectious Medical History: Denies: Hx Hepatitis Past Surgical History: Reports: Hx Bowel Surgery - Immunizations Hx Diphtheria, Pertussis, Tetanus Vaccination: Yes Hx Pneumococcal Vaccination: 01/16/14 Review of Systems - Review of Systems Constitutional: No symptoms reported. denies: Fever EENT: No symptoms reported Cardiovascular: No symptoms reported. denies: Chest pain Respiratory: No symptoms reported. denies: Cough Gastrointestinal: Abdominal pain, Other - Drainage from abdominal incision. denies: Nausea, Vomiting Genitourinary: No symptoms reported. denies: Dysuria Female Genitourinary: No symptoms reported Musculoskeletal: No symptoms reported. denies: Back pain Skin: No symptoms reported Hematologic/Lymphatic: No symptoms reported Neurological/Psychological: No symptoms reported Physical Exam - Vital signs Vitals: Temp Pulse Resp BP Pulse Ox 99.0 F 95 18 135/86 H 95 05/30/20 20:30 05/30/20 20:30 05/30/20 20:30 05/30/20 20:30 05/30/20 20:30 - General General appearance: Appears well, Alert In distress: None - HEENT Head: Normocephalic, Atraumatic Eyes: Normal Conjunctiva: Normal Nasal: Normal Mouth/Lips: Normal Neck: Normal, Supple. No: Lymphadenopathy - Respiratory Respiratory status: No respiratory distress Chest status: Nontender Chest palpation: Normal - Cardiovascular Rhythm: Regular Heart sounds: S1 appreciated, S2 appreciated - Abdominal Inspection: Other - Brown, olive colored drainage to bandage on abdomen Distension: No distension Bowel sounds: Normal Tenderness: Tender - Mild lower pelvic tenderness Organomegaly: No organomegaly - Back Back: Normal, Nontender. No: CVA tenderness - Extremities General upper extremity: Normal inspection, Nontender General lower extremity: Normal inspection, Nontender - Neurological Neuro grossly intact: Yes Cognition: Normal Sidra Coma Scale Eye Opening: Spontaneous [place] Coma Scale Verbal: Oriented [place] Coma Scale Motor: Obeys Commands [place] Coma Scale Total: 15 - Psychological Associated symptoms: Normal affect, Normal mood - Skin Skin Temperature: Warm Skin Moisture: Dry Skin Color: Normal Course - Re-evaluation Re-evalutation: 05/30/20 21:26 DEMAR Stark called to speak with Dr. Wilder, as he was the person who performed this procedure, he advises having the on-call surgeon evaluate patient. 05/30/20 22:18 Dr. Oliveira to bedside for examination, he recommends replacing the dressing with the honeycomb adhesive operative dressing and advises following up in the office as planned with Dr. Wilder. - Vital Signs Vital signs: Temp Pulse Resp BP Pulse Ox 99.0 F 95 18 135/86 H 95 05/30/20 20:30 05/30/20 20:30 05/30/20 20:30 05/30/20 20:30 05/30/20 20:30 - Laboratory Laboratory results interpreted by me: 05/30/20 21:32 Ur Leukocyte Esterase TRACE H Labs- All tests 24 hr 05/30/20 21:32 Urine Color STRAW Urine Appearance CLEAR Urine pH 7.0 Ur Specific [place] 1.002 Urine Protein NEGATIVE Urine Glucose (UA) NEGATIVE Urine Ketones NEGATIVE Urine Blood NEGATIVE Urine Nitrite NEGATIVE Urine Bilirubin NEGATIVE Urine Urobilinogen NEGATIVE Ur Leukocyte Esterase TRACE H Urine WBC (Auto) 1 Urine RBC (Auto) 0 Squamous Epi Cells Auto <1 Urine Mucus (Auto) RARE Urine Ascorbic Acid NEGATIVE Discharge - Discharge Clinical Impression: Encounter for wound re-check Condition: Stable Disposition: HOME, SELF-CARE Additional Instructions: Return immediately for any new or worsening symptoms: Fever, abdominal pain, any new or concerning symptoms Followup with Dr. Wilder as planned Referrals: EDITH PEÑA FNP-C [Primary Care Provider] - Follow up as needed AMANDA WILDER MD [ACTIVE STAFF] - Follow up as needed
[2020-05-30 21:55] LABS: APPEARANCE,URINE CLEAR; BILIRUBIN,URINE NEGATIVE (NEGATIVE); COLOR,URINE STRAW; GLUCOSE, URINE NEGATIVE (NEGATIVE); KETONES,URINE NEGATIVE (NEGATIVE); LEUKOCYTE ESTERASE,URINE TRACE (NEGATIVE); NITRITE,URINE NEGATIVE (NEGATIVE); PROTEIN,URINE NEGATIVE (NEGATIVE); URINE SPECIFIC GRAVITY 1.002; UROBILINOGEN,URINE NEGATIVE mg/dL (<2.0)
[2020-05-30 23:56] VITALS: BP 138/78
== END 2020-05-30 23:10 | disposition home or self-care (01) ==
LOC: ER 20:24
DX: Z98.890 Other specified postprocedural states (principal); E11.9 Type 2 diabetes mellitus without complications; E78.00 Pure hypercholesterolemia, unspecified; I10 Essential (primary) hypertension; I25.2 Old myocardial infarction
CPT/HCPCS: 81001; 99283

== ENCOUNTER 2020-07-09 15:33 | Emergency (ER) | payer OTHER ==
[2020-07-09] MEDS ORDERED: MECLIZINE HCL 25 MG TABLET PO ONE ×2 (15:53→19:15)
--- NOTE | 2020-07-09 15:55 | ER Document Report ---
ED Medical Screen (RME) - General Chief Complaint: Chest Pain Stated Complaint: DIZZINESS, CHEST PRESSURE Time Seen by Provider: 07/09/20 15:40 Primary Care Provider: EDITH PEÑA FNP-C [Primary Care Provider] - Follow up as needed TRAVEL OUTSIDE OF THE [place] IN LAST 30 DAYS: No - HPI Notes: 07/09/20 15:50 64-year-old female with a history of hyperlipidemia and hypertension presents to the emergency room today for complaints of left-sided chest pain that has been occurring intermittently for the last 2 weeks, last for about an hour and then goes away, denies any radiation of pain. Denies any nausea vomiting or diarrhea. Denies personal history of cardiac issues as well as family history of cardiac issues, non-smoker. Patient also reports that she started with di zziness, woke her up around 2:58 in the morning and she felt like "the room was spinning". Patient reports she still feeling dizzy, no nausea or vomiting. denies any nausea vomiting or diarrhea. Denies any prior history of any dizziness. Nu[place] any new medications foods or travel. Patient did not seek out any medical care for her chest pain for the last 2 weeks. Denies any numbness or tingling down her arms or legs, no facial numbness, denies any issues with her speech, confusion, weakness. Denies any lightheadedness just reported dizziness while she was laying in bed today. 07/09/20 15:53 I have greeted and performed a rapid initial assessment of this patient. A comprehensive ED assessment and evaluation of the patient, analysis of test results and completion of the medical decision making process will be conducted by additional ED providers. PHYSICAL EXAMINATION: GENERAL: Well-appearing, well-nourished and in no acute distress. HEAD: Atraumatic, normocephalic. EYES: Pupils equal round extraocular movements intact, conjunctiva are normal. NECK: Normal range of motion CV: s1, s2 regular LUNGS: No respiratory distress Musculoskeletal: Normal range of motion NEUROLOGICAL: Normal speech. Claims Director +2 bilaterally and equally. No facial droop. SKIN: Warm, Dry, normal turgor, no rashes or lesions noted. 07/09/20 15:54 07/09/20 15:54 - Related Data Allergies/Adverse Reactions: iodine [Iodine] Allergy (Verified 07/09/20 15:49) pear Allergy (Verified 07/09/20 15:49) shellfish derived Allergy (Verified 07/09/20 15:49) Past Medical History - Past Medical History Cardiac Medical History: Reports: Hx Coronary Artery Disease, Hx Heart Attack, Hx Hypercholesterolemia, Hx Hypertension Denies: Hx Atrial Fibrillation Pulmonary Medical History: Reports: Hx Pneumonia Denies: Hx Asthma, Hx COPD Neurological Medical History: Denies: Hx Seizures Endocrine Medical History: Reports: Hx Diabetes Mellitus Type 2. Denies: Hx Diabetes Mellitus Type 1, Hx Hyperthyroidism, Hx Hypothyroidism Renal/ Medical History: Denies: Hx Kidney Stones, Hx Peritoneal Dialysis GI Medical History: Denies: Hx Cirrhosis, Hx Hepatitis Musculoskeltal Medical History: Denies Hx Arthritis, Denies Hx Fibromyalgia Skin Medical History: Denies Hx Eczema, Denies Hx Psoriasis Psychiatric Medical History: Denies: Hx Depression Infectious Medical History: Denies: Hx Hepatitis Past Surgical History: Reports: Hx Bowel Surgery - Immunizations Hx Diphtheria, Pertussis, Tetanus Vaccination: Yes Physical Exam - Vital signs Vitals: Temp Pulse Resp BP Pulse Ox 98.4 F 88 16 155/77 H 99 07/09/20 15:43 07/09/20 15:43 07/09/20 15:43 07/09/20 15:43 07/09/20 15:43 Course - Vital Signs Vital signs: Temp Pulse Resp BP Pulse Ox 98.4 F 88 16 155/77 H 99 07/09/20 15:43 07/09/20 15:43 07/09/20 15:43 07/09/20 15:43 07/09/20 15:43 Doctor's Discharge - Discharge Referrals: EDITH PEÑA FNP-C [Primary Care Provider] - Follow up as needed
--- NOTE | 2020-07-09 16:40 | RADIOLOGY REPORT (SQ) ---
EXAM DESCRIPTION: CT HEAD WITHOUT IMAGES COMPLETED DATE/TIME: 07/09/2020 4:18 pm REASON FOR STUDY: new onset dizziness with chest pain COMPARISON: None. TECHNIQUE: Axial images acquired through the brain without intravenous contrast. Images reviewed wi th bone, brain and subdural windows. Additional sagittal and coronal reconstructions were generated. Images stored on PACS. All CT scanners at this facility use dose modulation, iterative reconstruction, and/or weight based d osing when appropriate to reduce radiation dose to as low as reasonably achievable (ALARA). [facility]: Dose Right [facility]: CareDose [facility]: Dose Right [facility]: Teradose 4D [facility]: TwoF RADIATION DOSE: CT Rad equipment meets quality standard of care and radiation dose reduction techniq ues were employed. CTDIvol: 53.2 mGy. DLP: 1044 mGy-cm. mGy. LIMITATIONS: None. FINDINGS: VENTRICLES: Normal size and contour. CEREBRUM: No CT evidence of acute large territory ischemic change. No intracranial acute hemorrhage, mass effect, or midline shift. Biparietal low attenuation in the hemispheric white matter likely chronic small vessel disease. CEREBELLUM: No masses. No hemorrhage. No alteration of density. No evidence for acute infarction. EXTRAAXIAL SPACES: No fluid collections. No masses. ORBITS AND GLOBE: No intra- or extraconal masses. Normal contour of globe without masses. CALVARIUM: No fracture. PARANASAL SINUSES: No fluid or mucosal thickening. SOFT TISSUES: No mass or hematoma. OTHER: No other significant finding. IMPRESSION: No acute findings EVIDENCE OF ACUTE STROKE: NO. COMMENT: Quality ID # [id number]: Final reports with documentation of one or more dose reduction techniques (e.g., Automated exposure control, adjustment of the mA and/or kV according to patient size, use of iterative reconstruction technique) TECHNICAL DOCUMENTATION: JOB ID: [id number] 2010 [employer]- All Rights Reserved Reading location - IP/workstation name: [email or web address]
--- NOTE | 2020-07-09 16:47 | RADIOLOGY REPORT (SQ) ---
EXAM DESCRIPTION: CHEST 2 VIEWS IMAGES COMPLETED DATE/TIME: 07/09/2020 4:22 pm REASON FOR STUDY: chest pain x 2 weeks, intermittent COMPARISON: 05/25/2020. EXAM PARAMETERS: NUMBER OF VIEWS: two views TECHNIQUE: Digital Frontal and Lateral radiographic views of the chest acquired. RADIATION DOSE: NA LIMITATIONS: none FINDINGS: LUNGS AND PLEURA: Linear densities in the right lung base. No lobar infiltrates, masses o r pneumothorax. No pleural effusion. MEDIASTINUM AND HILAR STRUCTURES: No masses or contour abnormalities. HEART AND VASCULAR STRUCTURES: Heart normal size. No evidence for failure. BONES: No acute findings. HARDWARE: None in the chest. OTHER: No other significant finding. IMPRESSION: LINEAR ATELECTASIS IN THE RIGHT LUNG BASE. TECHNICAL DOCUMENTATION: JOB ID: [id number] [employer]- All Rights Reserved Reading location - IP/workstation name: [email or web address]
[2020-07-09 17:01] LABS: APPEARANCE,URINE CLEAR; BILIRUBIN,URINE NEGATIVE (NEGATIVE); COLOR,URINE YELLOW; GLUCOSE, URINE NEGATIVE (NEGATIVE); KETONES,URINE NEGATIVE (NEGATIVE); LEUKOCYTE ESTERASE,URINE TRACE (NEGATIVE); NITRITE,URINE NEGATIVE (NEGATIVE); PROTEIN,URINE NEGATIVE (NEGATIVE); URINE SPECIFIC GRAVITY 1.011; UROBILINOGEN,URINE NEGATIVE mg/dL (<2.0)
[2020-07-09 17:04] LABS: HEMOGLOBIN 10.1 g/dL (12.0-15.5); MEAN CORPUSCULAR HEMOGLOBIN 29.5 pg (27.0-33.4); MEAN CORPUSCULAR HGB CONC 33.7 g/dL (32.0-36.0); MEAN CORPUSCULAR VOLUME 87 fl (80-97); PLATELET COUNT 232 10^3/uL (150-450); RED BLOOD COUNT 3.44 10^6/uL (3.72-5.28); RED CELL DISTRIBUTION WIDTH 14.1 % (11.5-14.0); WHITE BLOOD COUNT 7.1 10^3/uL (4.0-10.5)
[2020-07-09 17:20] LABS: ALBUMIN 4.6 g/dL (3.5-5.0); ALKALINE PHOSPHATASE 93 U/L (38-126); ANION GAP 14 (5-19); ASPARTATE AMINO TRANSFERASE 18 U/L (14-36); BILIRUBIN,DIRECT 0.2 mg/dL (0.0-0.4); BLOOD UREA NITROGEN 13 mg/dL (7-20); CALCIUM 9.9 mg/dL (8.4-10.2); CARBON DIOXIDE 25 mmol/L (22-30); CHLORIDE 100 mmol/L (98-107); GLUCOSE 176 mg/dL (75-110); POTASSIUM 3.6 mmol/L (3.6-5.0); TOTAL PROTEIN 8.1 g/dL (6.3-8.2)
[2020-07-09 17:28] LABS: ABSOLUTE LYMPHOCYTES# (MANUAL) 1.8 10^3/uL (0.5-4.7); ABSOLUTE MONOCYTES # (MANUAL) 0.5 10^3/uL (0.1-1.4); BASOPHILS % (MANUAL) 1 % (0-2); EOSINOPHILS % (MANUAL) 0 % (0-6); LYMPHOCYTES % (MANUAL) 23 % (13-45); METAMYELOCYTES % (MANUAL) 1 % (0-1); MONOCYTES % (MANUAL) 7 % (3-13); SEGMENTED NEUTROPHILS % (MAN) 65 % (42-78); TOTAL CELLS COUNTED 100
[2020-07-09 17:29] LABS: PLATELET COMMENT ADEQUATE
[2020-07-09 17:31] LABS: ANISOCYTOSIS SLIGHT; OVALOCYTES 1+; POIKILOCYTOSIS 1+; POLYCHROMASIA SLIGHT
[2020-07-09 17:32] LABS: TEAR DROP CELLS SLIGHT
--- NOTE | 2020-07-09 18:04 | EKG REPORT ---
SEVERITY:- BORDERLINE ECG - SINUS RHYTHM BORDERLINE LEFT AXIS DEVIATION BORDERLINE T ABNORMALITIES, LATERAL LEADS : Confirmed by: Gage Koroma MD 09-Jul-2020 18:03:57
[2020-07-09] MEDS ORDERED: NORMAL SALINE 1000 ML 1,000 ML IV ONE (21:12)
[2020-07-09] MEDS ORDERED: DIAZEPAM INJ 10 MG/2 ML DISP.SYRIN IV ONE (21:12)
--- NOTE | 2020-07-09 22:39 | ER Document Report ---
ED General - General Chief Complaint: Chest Pain Stated Complaint: DIZZINESS, CHEST PRESSURE Time Seen by Provider: 07/09/20 15:40 Primary Care Provider: EDITH PEÑA FNP-C [Primary Care Provider] - Follow up as needed Notes: 64-year-old female with hypertension hyperlipidemia and surgery few weeks ago for "intestines in a knot" presents with 1 day of vertigo and chest pain. Patient states when she woke up in the morning and she sat up that she felt sudden onset of room spinning sensation that got worse every time she moved her head. Vertigo goes away when she sits still but every time she has her head e specially suddenly turning her head she has return of symptoms. Patient also endorses that for the past few weeks since her surgery she has had intermittent pain at the base of sternum without radiation that comes on for few minutes and goes away amd is not associated with exertion. Patient denies any cardiac history, exertional chest pain, pleuritic chest pain, lower extremity edema, DVT/PE/hypercoagulability history in self or family, cancer history, trauma, syncope/near syncope, black or bloody stools/diarrhea, vomiting, gait instability, fever, cough TRAVEL OUTSIDE OF THE [place] IN LAST 30 DAYS: No - Related Data Allergies/Adverse Reactions: iodine [Iodine] Allergy (Verified 07/09/20 15:49) pear Allergy (Verified 07/09/20 15:49) shellfish derived Allergy (Verified 07/09/20 15:49) Past Medical History - General Information source: Patient - Social History Smoking Status: Never Smoker Family History: CVA, Hypertension. denies: CAD, DM, Thyroid Disfunction Patient has homicidal ideation: No - Past Medical History Cardiac Medical History: Reports: Hx Hypercholesterolemia, Hx Hypertension Denies: Hx Atrial Fibrillation Pulmonary Medical History: Reports: Hx Pneumonia Denies: Hx Asthma, Hx COPD Neurological Medical History: Denies: Hx Seizures Endocrine Medical History: Reports: Hx Diabetes Mellitus Type 2. Denies: Hx Diabetes Mellitus Type 1, Hx Hyperthyroidism, Hx Hypothyroidism Renal/ Medical History: Denies: Hx Kidney Stones, Hx Peritoneal Dialysis GI Medical History: Denies: Hx Cirrhosis, Hx Hepatitis Musculoskeletal Medical History: Denies Hx Arthritis, Denies Hx Fibromyalgia Skin Medical History: Denies Hx Eczema, Denies Hx Psoriasis Psychiatric Medical History: Denies: Hx Depression Infectious Medical History: Denies: Hx Hepatitis Past Surgical History: Reports: Hx Bowel Surgery - Immunizations Hx Diphtheria, Pertussis, Tetanus Vaccination: Yes Hx Pneumococcal Vaccination: 09/28/13 Review of Systems - Review of Systems Notes: REVIEW OF SYSTEMS: CONSTITUTIONAL : Denies fever, chills, or sweats. EENT: Denies recent cold/sinus symptoms, denies throat pain CARDIOVASCULAR: + chest pain, -SIDNEY RESPIRATORY: Denies cough, denies shortness of breath. GASTROINTESTINAL: Denies abdominal pain, nausea/vomiting. GENITOURINARY: Denies difficulty urinating, painful urination. FEMALE GENITOURINARY: Denies abnormal vaginal bleeding, vaginal discharge. MUSCULOSKELETAL: Denies neck pain, back pain. SKIN: Denies rash or skin lesions. HEMATOLOGIC : Denies easy bruising or bleeding. LYMPHATIC: Denies swollen, enlarged glands. NEUROLOGICAL: Denies headache, denies change in gait. PSYCHIATRIC: Denies anxiety or stress or depression. Physical Exam - Vital signs Vitals: Temp Pulse Resp BP Pulse Ox 98.4 F 88 16 155/77 H 99 07/09/20 15:43 07/09/20 15:43 07/09/20 15:43 07/09/20 15:43 07/09/20 15:43 - Notes Notes: PHYSICAL EXAMINATION: GENERAL: Well-appearing, well-nourished and in no acute distress. HEAD: Atraumatic, normocephalic. EYES: Pupils equal round and appropriate constriction, sclera anicteric, conjunctiva are normal. ENT: nares patent, moist mucous membranes, Josephine-Hallpike to right produced severe vertigo without nystagmus or vomiting NECK: Normal range of motion, supple without lymphadenopathy LUNGS: Breath sounds clear to auscultation bilaterally and equal. No wheezes rales or rhonchi. Normal respiratory rate and effort HEART/CHEST: Regular rate and rhythm without murmurs, chest nontender ABDOMEN: Soft, nontender, no guarding, no masses, no CVAT, healed surgical incision along upper midline EXTREMITIES: Normal range of motion, no pitting or edema. No cyanosis. NEUROLOGICAL: Awake, alert, conversing appropriately, moves all extremities spontaneously, cranial nerves II through XII intact bilaterally, normal finge r-to-nose bilaterally, 5 out of 5 strength in all extremities, normal sensation in all extremities, patient declines gait exam as vertigo returns with Josephine- Hallpike maneuver PSYCH: Normal mood, normal affect. SKIN: Warm, Dry, normal turgor, no rashes or lesions noted. Course - Re-evaluation Re-evalutation: 07/09/20 22:38 Patient presenting with 1 day episodic positional vertigo. Incident exam not appropriate in this patient as vertigo was not continuous. Josephine-Hallpike elicited symptoms. Presentation consistent with peripheral vertigo, will treat symptomatically and reassess. Chest pain with benign presentation rule out ACS and PE. Will obtain 2 troponins EKG and dimer. CTA as per dimer result. No signs of acute ischemia on EKG, vital signs stable, and chest pain low suspicion for cardiac etiology, will continue to monitor. Past medical history is as CAD and TX history, but patient had denied this. I went to discuss this with patient again and she confirms that that is not correct. I removed it from her record. 07/10/20 03:26 Patient's dimer was mildly elevated so I obtained CTA to rule out PE.. He had some poor opacification of some pulmonary artery distributions but visualized portions without any filling opacity. I discussed this with patient and offered admission for repeat scan or V/Q but patient declined. Given that patient has been asymptomatic without any chest pain or shortness of breath and normal vital signs throughout her ED observation period this is a reasonable plan. Patient will need to follow-up with primary, cardiology, and pulmonology. Informed patient of enlarged pulmonary artery on CT. repeat troponin also negative and heart score 3. printed out all results for patient. Gave patient extensive return to ED precautions which she demonstrated understanding of. Patient walked in ED with steady gait and patient feels safe going home with mild vertigo symptoms. Symptoms are intermittent still and improved from earlier. Patient tolerating p.o. - Vital Signs Vital signs: Temp Pulse Resp BP Pulse Ox 97.7 F 74 18 131/70 H 100 07/10/20 01:37 07/09/20 19:07 07/10/20 01:37 07/10/20 01:37 07/10/20 01:37 - Laboratory Result Diagrams: 07/09/20 16:34 07/09/20 16:34 Laboratory results interpreted by me: 07/09/20 07/09/20 07/09/20 16:34 16:34 16:34 RBC 3.44 L Hgb 10.1 L Hct 30.0 L RDW 14.1 H D-Dimer Glucose 176 H POC Glucose Ur Leukocyte Esterase TRACE H Urine Ascorbic Acid 20 H 07/09/20 07/09/20 16:34 16:37 RBC Hgb Hct RDW D-Dimer 0.92 H Glucose POC Glucose 171 H Ur Leukocyte Esterase Urine Ascorbic Acid - EKG Interpretation by Me Additional EKG results interpreted by me: 07/09/20 22:47 Sinus rhythm, no significant ST elevations or depressions, no significant T wave abnormalities, QTc 421 Discharge - Discharge Clinical Impression: Positional vertigo, Enlarged pulmonary artery Chest pain Qualifiers: Chest pain type: unspecified Qualified Code(s): R07.9 - Chest pain, unspecified Disposition: HOME, SELF-CARE Additional Instructions: Chest Pain of Unclear Cause The exact cause of your chest pain isn't clear. Further testing may be required to find the source of the pain. Most often, we find that this pain is coming from the chest wall -- the muscles or rib joints in the chest. But chest pain can come from the lung and lung lining, the esophagus, the heart valves or heart lining, and even the stomach or gallbladder. Rest. Eat lightly until the pain is gone. We may prescribe medicine for pain and inflammation. It is very important that you follow-up with the identifier horse and the commercial property manager within the next few days regarding your symptoms. Bring your results when you go to follow-up. Your pulmonary artery was enlarged you should discuss this with your specialists. Take meclizine 25 mg by mouth every 6 hours as needed for vertigo. If your symptoms persist, make appointment with ENT doctor. Follow-up with your primary doctor within the next week. If you have any return of your chest pain or shortness of breath, lightheadedness, fainting, vomiting and inability to keep down liquids by mouth, headache, neck pain or stiffness, fever, or any other worsening or alarming symptoms it is important that you return to the emergency department immediately to be reevaluated. Prescriptions: Meclizine HCl [Antivert 25 mg Tablet] 25 mg PO TID PRN #21 tablet PRN Reason: Dizziness Referrals: EDITH PEÑA FNP-C [Primary Care Provider] - Follow up in 1 week MERA VARMA MD [ACTIVE STAFF] - Follow up in 3-5 days AURORA LEMONS MD [ACTIVE STAFF] - Follow up in 3-5 days
[2020-07-10] MEDS ORDERED: DIPHENHYDRAMINE HCL 50 MG/ML VIAL IV ONE (00:17)
[2020-07-10] MEDS ORDERED: FAMOTIDINE INJ/PF 20 MG/2 ML SDV IV ONE (00:18)
[2020-07-10] MEDS ORDERED: METHYLPREDNISOLONE INJ 125 MG/2 ML SDV IV ONE (00:18)
--- NOTE | 2020-07-10 02:02 | RADIOLOGY REPORT (SQ) ---
CT ANGIOGRAM CHEST WITH IV CONTRAST: 07/10/2020 12:59 AM CDT HISTORY: 64-year old patient with chest pain, dyspnea, elevated d-dimer. TECHNIQUE: Postcontrast CT through the chest was performed per protocol for CT angiography. 3D Multiplanar reformations were performed at the workstation. Reconstructed sagittal and coronal images were also obtained through the chest. This exam was performed according to our departmental dose-optimization program, which includes automated exposure control, adjustment of the mA and/or KV according to the patient's size and/or use of iterative reconstruction technique. COMPARISON: CT the chest from 05/25/2020 FINDINGS: The heart size is at the upper limits of normal in size to enlarged. No large pericardial effusion is seen. No significant mediastinal, supraclavicular, or axillary lymphadenopathy is seen. The thoracic aorta is within normal limits of size. No filling defects are seen within the pulmonary arteries to suggest a pulmonary artery embolism. There is suboptimal opacification of the pulmonary arteries. The main pulmonary artery is enlarged and measures at least 3.2 cm in transverse dimension. The thyroid gland is unremarkable. The central tracheobronchial tree is patent. There are bibasilar airspace opacities with some volume loss which may reflect atelectasis. No discrete pleural effusion is seen. There is no evidence of a pneumothorax. The bones demonstrate no suspicious lytic or blastic lesion. The visualized portions of the upper abdomen appear grossly unremarkable. IMPRESSION: There is some minimal bibasilar atelectasis present. The main pulmonary artery is enlarged, which can be seen with pulmonary artery hypertension. No gross focal filling defect is seen at the visualized pulmonary arteries. These are suboptimally opacified.
[2020-07-10 04:28] VITALS: BP 115/72
== END 2020-07-10 04:21 | disposition home or self-care (01) ==
LOC: ER 15:33
DX: I28.9 Disease of pulmonary vessels, unspecified (principal); R07.9 Chest pain, unspecified; R42 Dizziness and giddiness; Z88.8 Allergy status to other drugs, medicaments and biological substances; I10 Essential (primary) hypertension; E11.9 Type 2 diabetes mellitus without complications
CPT/HCPCS: 93005; 99285; 96361; 96374; 96375; 36415; 82962; 83690; 85025; 80053; 81001; 84484; 85379; 71046; 70450; 71275; 93010; J3360; J1200; J2930; J7030; S0028

== ENCOUNTER → 2020-09-18 | Outpatient (CLI) | payer BC, OTHER ==
--- NOTE | 2020-09-18 11:32 | WOMENS IMAGING REPORT ---
EXAM DESCRIPTION: BILAT SCREENING MAMMO W/CAD IMAGES COMPLETED DATE/TIME: 09/18/2020 7:39 am REASON FOR STUDY: ROUTINE BILATERAL SCREENING;Z12.31 Z12.31 ENCNTR SCREEN MAMMOGRAM FOR MALIGNANT N EOPLASM OF JEFF COMPARISON: 12/09/2018, 06/28/2012 EXAM PARAMETERS: Standard craniocaudal and mediolateral oblique views of each breast recorded using digital acquisition. Read with the assistance of CAD. .[facility] - [employer] Rolling Room Version 9.2 LIMITATIONS: None. FINDINGS: Findings present which are benign by mammographic criteria. No suspicious masses, calcifi cations or architectural distortion. Pertinent benign findings: Benign-morphology calcifications are again seen bilaterally. Benign mammographic findings may include one or more of the following: Smooth masses, popcorn/rim/co arse calcifications, asymmetries, post-procedure changes, and lesions with long-standing stability. IMPRESSION: BENIGN MAMMOGRAPHIC FINDINGS. BIRADS 2 BREAST DENSITY: b. There are scattered areas of fibroglandular density. BIRAD: ASSESSMENT: 2 BENIGN FINDING(S) RECOMMENDATION: ROUTINE SCREENING COMMENT: The patient has been notified of the results by letter per [place] requirements. Additional no tification policies are in place for contacting patient with suspicious or incomplete findings. Quality ID #[id number]: The [employer] recommends an annual screening mammogram for women aged 40 years or over. This facility utilizes a reminder system to ensure that all patients receive reminder letters, and/or direct phone calls for appointments. This includes reminders for routine scr eening mammograms, diagnostic mammograms, or other Breast Imaging Interventions when appropriate. Th is patient will be placed in the appropriate reminder system. TECHNICAL DOCUMENTATION: FINDING NUMBER: (1) ASSESSMENT: (1) JOB ID: [id number] 2010 [employer]- All Rights Reserved Reading location - IP/workstation name: [email or web address]
== END ==
LOC: WI 07:22
DX: Z12.31 Encounter for screening mammogram for malignant neoplasm of breast (principal)
CPT/HCPCS: 77067